=== PATIENT | female | born 1975 | race Caucasian/White ===

== ENCOUNTER 2021-03-10 11:50 | Emergency (ER) | payer OTHER, SELFPAY ==
[2021-03-10 12:03] VITALS: BP 154/87; PULSE 114; RESP 16; TEMP 36.2; O2SAT 100
--- NOTE | 2021-03-10 12:28 | ED.URI ---
HPI - URI/Sore Throat General Chief Complaint: Upper Respiratory Infection Stated Complaint: CHEST PAIN/SOB Source: patient and RN notes reviewed Limitations: no limitations History of Present Illness HPI Narrative: The unvaccinated patient, a non-smoker /occ drinker, presents with several issues. The patient came in, probably for today, with 1 morning history of right great toe pain that is mild, worse with motion, better with rest or elevation, associated with nausea. She struck her nail on furnishings, breaking / hyperextending it at the proximal third of the nailbed; she declines x-ray as it only affected her toenail. She also mentions she has had a 1 to 2-day worsening of several month history of cough, she felt triggered by working in a dirty or moldy basement. No fever, CP, vomiting/diarrhea, S OB, loss of taste/smell, wheezing/sneezing-but she has tightness and had an inhaler in the past for cough . Related Data Allergies Allergy/AdvReac Type Severity Reaction Status Date / Time No Known Allergies Allergy Verified 11/25/20 15:10 Review of Systems Review of Systems: The patient has been informed that they may have pre-hypertension or Hypertension based on a BP reading in the department. I recommend that the patient call the primary care provider listed on their discharge instructions or a physician of their choice this week to arrange follow up for further evaluation of possible pre-hypertension or Hypertension General/Constitutional: No weight loss,fever Eyes: N0: Redness,discharge Ears/Nose/Throat: No: Epistaxis,ear discharge Respiratory: Denies: Hemoptysis Gastrointestinal: No Vomiting, Bleeding-rectal Skin: No Lumps, eruption Neurologic: No Focal Weakness,Sz Hematologic: Denies: Petechiae/Purpura Psychiatric: No: Suicida ideationl All Other Systems: Reviewed and Negative [facility] Past Medical History Medical History Anxiety Hx of migraines Type 2 diabetes mellitus without complications Diet controlled. Surgical History Surgical History No history of previous surgery Family History Family History Father Hypertension Family history of elevated blood lipids Family history of diabetes mellitus in first degree relative Family history of coronary artery disease Grandparent Hypertension Family history of elevated blood lipids Diabetes mellitus Mother Hypertension Family history of elevated blood lipids Family history of diabetes mellitus in first degree relative Social History Social History Smoking status: Never smoker Alcohol intake: current Gender identity (if verbalized by the patient): Female Comments At time of signature, agree with nursing past medical, surgical, social and family history. There is no relevant family history pertinent to the presenting complaint Exam Narrative: General Appearance: Well appearing, Conjunctiva clear Ears: External ear normal, Auditory canal normal Nose: Normal nose, Nares clear, Mouth/Throat: Normal appearing, Normal lips, Supple Respiratory: Airway patent, No respiratory distress, CTA no wheeze MS- toe: Nl strength (mostly intact, limited flexion/extension by pain), Tenderness (great toenail, with mild decreased ROM), Swelling , Other (transverse fracture line prox. third of nail without significant subungal hematoma, no anterior drawer, no collateral laxity, ) Skin: Warm, Dry, Normal color Neurological: A&O x3, Speech clear, CN II-XII intact Psychiatric: Normal mood, Normal affect Course Vital Signs Vital signs: Vital Signs Temperature 97.2 F L 03/10/21 12:03 Pulse Rate 114 H 03/10/21 12:03 Respiratory Rate 16 03/10/21 12:03 Blood Pressure 154/87 H 03/10/21 12:03 Pulse Oximetry 100 03/10/21 12:03
== END 2021-03-10 12:42 | disposition home or self-care (01) ==
PROVIDERS: Emergency Provider Emergency Medicine; PCP Nurse Practitioner
DX: R05.9 Cough, unspecified (principal); S99.921A Unspecified injury of right foot, initial encounter; W22.03XA Walked into furniture, initial encounter; Z20.822 Contact with and (suspected) exposure to COVID-19; F41.9 Anxiety disorder, unspecified; E11.9 Type 2 diabetes mellitus without complications
CPT/HCPCS: 87426; 99213; C9803; G0463

== ENCOUNTER 2022-02-26 18:42 | Emergency (ER) | payer OTHER, SELFPAY ==
[2022-02-26 18:49] VITALS: BP 155/79; PULSE 88; RESP 15; TEMP 36.7; O2SAT 100
--- NOTE | 2022-02-26 19:39 | ED.HA ---
HPI - Headache General Chief Complaint: Headache Stated Complaint: migraines since Monday Time Seen by Provider: 02/26/22 19:14 Source: RN notes reviewed History of Present Illness HPI Narrative: Patient presents emergency room from home for headache. Patient states she has had a headache for the past 4 days. Patient patient states that the headache will come and go states that the pain is located behind her eyes and in the forehead patient states she does have history of migraines to use approximately 2-3 times a year states at home she tried taking Aleve as well as amitriptyline with minimal relief she states last thing she took for pain was yesterday when she took amitriptyline states she does have some mild nausea as well as mild photophobia she denies any fevers or chills neck pain vomiting diarrhea or any other symptoms Related Data Allergies Allergy/AdvReac Type Severity Reaction Status Date / Time No Known Allergies Allergy Verified 03/22/21 11:12 Review of Systems Review of Systems: Gen.: Denies fevers or chills Eyes: Denies eye pain or visual change reports photophobia ENT: Denies congestion Respiratory: Denies shortness of breath or cough CV: Denies chest pain or palpitations reports nausea GI: Denies abdominal pain emesis or diarrhea denies Musculoskeletal: Denies back pain or muscle pain Neuro: Denies numbness, tingling, weakness or focal weakness Skin: Denies rash Except as documented, all other systems reviewed and negative [facility] Past Medical History Medical History Anxiety Hx of migraines Type 2 diabetes mellitus without complications Diet controlled. Surgical History Surgical History No history of previous surgery Family History Family History Father Hypertension Family history of elevated blood lipids Family history of diabetes mellitus in first degree relative Family history of coronary artery disease Grandparent Hypertension Family history of elevated blood lipids Diabetes mellitus Mother Hypertension Family history of elevated blood lipids Family history of diabetes mellitus in first degree relative Social History Social History Smoking status: Never smoker Alcohol intake: current Alcohol use details: states just social drink/if out to eat Substance use: never Substance use type: does not use Additional living arrangements comments: daughter, boyfriend and grandchild 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 CARDIOVASCULAR: Regular rate and rhythm without murmurs rubs or gallops. ABDOMINAL: Soft, nontender, nondistended, no rebound or guarding MUSCULOSKELETAl: Moves all extremities. No clubbing, cyanosis or edema. NEURO: Awake and alert x 4 Following commands, speech normal, no focal deficits SKIN:: Warm, dry. No rashes lesions or abrasions PSYCHIATRIC: Normal affect/mood, Course Course Emergency Course: Patient states she is feeling better at this time states headache is greatly improved she states she does not leave as her daughter is a car she is requesting some p.o. Tylenol and then would like to be discharged discussed with patient results of workup and diagnosis. Discussed need for follow-up with primary care, proper use of medication, and reasons to return to the emergency department. Patient understands and agrees to current treatm
[2022-02-26] MEDS: SODIUM CHLORIDE 0.9% IV 1,000 ML 999 ML IV CONT (19:44)
[2022-02-26] MEDS: KETOROLAC 30 MG/ML VIAL (*BKC) IV PUSH (19:45)
[2022-02-26] MEDS: ONDANSETRON INJ 4 MG/2 ML VIAL IV PUSH (19:45)
[2022-02-26] MEDS: diphenhydrAMINE HCl INJ 50 MG/ML VIAL 25 MG IV PUSH (19:45)
[2022-02-26] MEDS: ACETAMINOPHEN 500 MG TABLET 1000 MG PO (21:35)
[2022-02-26 21:37] VITALS: BP 143/69; PULSE 78; RESP 19; O2SAT 99
== END 2022-02-26 22:01 | disposition home or self-care (01) ==
PROVIDERS: Emergency Provider Emergency Medicine; PCP Nurse Practitioner
DX: G43.909 Migraine, unspecified, not intractable, without status migrainosus (principal); E11.9 Type 2 diabetes mellitus without complications; Z79.84 Long term (current) use of oral hypoglycemic drugs
CPT/HCPCS: 96361; 96374; 96375; 99284; A9270; J1200; J1885; J2405; J7030

== ENCOUNTER 2022-02-28 19:55 | Emergency (ER) | payer OTHER, SELFPAY ==
[2022-02-28 20:40] VITALS: BP 175/73; PULSE 79; RESP 16; TEMP 36.2; O2SAT 100
--- NOTE | 2022-02-28 23:43 | ED.GENADULT ---
HPI - General Adult General Chief complaint: Headache Stated complaint: migraine Time Seen by Provider: 02/28/22 23:30 History of Present Illness HPI narrative: 47-year-old female history of intermittent headaches presenting to the emergency department for evaluation of a persistent headache. Patient states that her headache initially started on Monday. Patient states it started gradually and is similar in character and intensity to her previous headaches. Patient states that the headache did persist on Monday and did improve Monday but came back on Monday. Patient presented to the emergency room Monday and was evaluated in the emergency department. Patient was treated with medications and stated she felt improved. Patient states that the headache did return Monday and was present throughout the day today. Patient denies any falls or injuries. Patient denies any fevers. Patient states the headache is similar to previous but is just not responding to medications. Patient states that she has received the migraine cocktail previously and this has helped. Related Data Allergies Allergy/AdvReac Type Severity Reaction Status Date / Time No Known Allergies Allergy Verified 02/28/22 23:12 Review of Systems Review of Systems: CONSTITUTIONAL: Denies fever, chills, or sweats. EYES: Denies visual changes, redness, or discharge. ENT: Denies rhinorrhea, congestion, sore throat, or otalgia. CARDIOVASCULAR: Denies chest pain, palpitations, or edema. RESPIRATORY: Denies cough or dyspnea. GASTROINTESTINAL: Denies abdominal pain, nausea, vomiting, or diarrhea. GENITOURINARY: Denies dysuria or hematuria. SKIN: Denies rash or itching. MUSCULOSKELETAL: Denies back pain, joint pain, or myalgia. NEUROLOGIC: See HPI, denies any associated numbness or weakness. [facility] Past Medical History Medical History Anxiety Hx of migraines Type 2 diabetes mellitus without complications Diet controlled. Surgical History Surgical History No history of previous surgery Family History Family History Father Hypertension Family history of elevated blood lipids Family history of diabetes mellitus in first degree relative Family history of coronary artery disease Grandparent Hypertension Family history of elevated blood lipids Diabetes mellitus Mother Hypertension Family history of elevated blood lipids Family history of diabetes mellitus in first degree relative Social History Social History Smoking status: Never smoker Alcohol intake: current Alcohol use details: states just social drink/if out to eat Substance use: never Substance use type: does not use Additional living arrangements comments: daughter, boyfriend and grandchild 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 HEAD: normocephalic, atraumatic. EYES: PERRLA/EOMI, conjunctivae clear. NOSE: Normal no drainage NECK: Supple. No adenopathy, no masses. RESPIRATORY: Airway patent, respirations nonlabored. Clear to auscultation bilaterally, no rales, rhonchi, wheezing. CARDIOVASCULAR: Regular rate and rhythm without murmurs rubs or gallops. ABDOMINAL: Soft, nontender, nondistended, normal bowel sounds MUSCULOSKELETAL: Moves all extremities. Strength/ROM intact, No edema, No calf tenderness. NEURO: Alert. Cranial nerves II through XII intact. Normal comprehensive neuro exam, no ataxia, no discoordination, normal strength reflexes. Normal Romberg. Normal forward and backward tandem gait. SKIN: Warm, dry. Normal Color PSYCHIATRIC: Normal affect/mood. Course Course Emergency C
[2022-03-01] MEDS: SODIUM CHLORIDE 0.9% IV 1,000 ML 999 ML IV CONT (00:18)
[2022-03-01] MEDS: SODIUM CHLORIDE 0.9% IV 100 ML 500 ML (00:19)
[2022-03-01] MEDS: KETOROLAC 15 MG/ML VIAL (*BKC) IV PUSH (00:20)
[2022-03-01] MEDS: PROCHLORPERAZINE EDISYLATE 10 MG/2 ML VIAL IV PUSH (00:20)
[2022-03-01] MEDS: diphenhydrAMINE HCl INJ 50 MG/ML VIAL IV PUSH (00:21)
[2022-03-01 02:45] VITALS: BP 116/65; PULSE 67; RESP 16; O2SAT 100
== END 2022-03-01 02:46 | disposition home or self-care (01) ==
PROVIDERS: Emergency Provider Emergency Medicine; PCP Nurse Practitioner
DX: G43.909 Migraine, unspecified, not intractable, without status migrainosus (principal); E11.9 Type 2 diabetes mellitus without complications; Z79.84 Long term (current) use of oral hypoglycemic drugs
CPT/HCPCS: 96361; 96374; 96375; 99284; J0780; J1200; J1885; J7030

== ENCOUNTER 2022-03-14 08:23 | Emergency (ER) | payer OTHER, SELFPAY ==
[2022-03-14 08:40] VITALS: BP 123/77; PULSE 98; RESP 16; TEMP 37.7; O2SAT 100
--- NOTE | 2022-03-14 08:44 | ED.URI ---
HPI - URI/Sore Throat General Chief Complaint: Upper Respiratory Infection Stated Complaint: sorethroat,rt ear pain,vaginal discharge Time Seen by Provider: 03/14/22 08:50 Source: patient and RN notes reviewed Mode of arrival: ambulatory Limitations: no limitations History of Present Illness HPI Narrative: 47-year-old female presents with concern for sore throat, earache, slight nasal congestion that started today. She reports she was on [place] farm [place] and around dogs and thinks she could possibly have allergies, she is also concerned for strep throat. In a separate complaint she reports vaginal itching for 1 day she denies any [id number] remedies. She reports history of vaginal yeast infections with similar symptoms. She denies copious vaginal discharge, dysuria, frequency, urgency. MD elicited complaint: sore throat Related Data Allergies Allergy/AdvReac Type Severity Reaction Status Date / Time No Known Allergies Allergy Verified 02/28/22 23:12 Review of Systems Review of Systems: CONSTITUTIONAL: Denies malaise, chills, sweats, or fever. EYES: Denies visual changes, redness, or discharge. ENT: Reports rhinorrhea, congestion, sore throat. Denies sinus pain, otalgia CARDIOVASCULAR: Denies chest pain, palpitations, or edema. RESPIRATORY: Denies cough. Denies dyspnea. GASTROINTESTINAL: Denies abdominal pain, nausea, vomiting, diarrhea SKIN: Denies rash or itching. : Reports vaginal itching MUSCULOSKELETAL: Denies myalgia. NEUROLOGIC: Denies headache. All systems reviewed & are unremarkable except as noted in HPI and below [facility] Past Medical History Medical History Anxiety Hx of migraines Type 2 diabetes mellitus without complications Diet controlled. Surgical History Surgical History No history of previous surgery Family History Family History Father Hypertension Family history of elevated blood lipids Family history of diabetes mellitus in first degree relative Family history of coronary artery disease Grandparent Hypertension Family history of elevated blood lipids Diabetes mellitus Mother Hypertension Family history of elevated blood lipids Family history of diabetes mellitus in first degree relative Social History Social History Smoking status: Never smoker Alcohol intake: current Alcohol use details: states just social drink/if out to eat Substance use: never Substance use type: does not use Additional living arrangements comments: daughter, boyfriend and grandchild 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 There is no relevant family history pertinent to the presenting complaint Exam Narrative: GENERAL: Well-appearing, well-nourished, and in no acute distress. HEAD: Normocephalic EYES: PERRLA, conjunctivae clear ENT: Nares clear, clear discharge. Mucous membranes moist. TM pearly mcpherson with sharp light reflex bilaterally; no tragal tenderness. Oropharynx not erythematous without lesions. Tonsils not enlarged and without exudate, no drooling, no hoarseness, no trismus, uvula midline. NECK: Supple. No lymphadenopathy CHEST: Clear to auscultation, breath sounds equal. No wheezing, rhonchi, rales, or stridor. No respiratory distress, speaks in full sentences. HEART: Regular rate and rhythm. No murmur heard. SKIN: Warm, dry, no rash. NEURO: Alert and oriented x3. PSYCH: Normal mood and affect Course Course Emergency Course: Patient is aware of diagnosis, understands and agrees to treatment plan. Anticipatory guidance given. Patient agrees to follow-up as directed a
== END 2022-03-14 09:15 | disposition home or self-care (01) ==
PROVIDERS: Emergency Provider Nurse Practitioner; PCP Nurse Practitioner
DX: J30.9 Allergic rhinitis, unspecified (principal); N89.8 Other specified noninflammatory disorders of vagina; E11.9 Type 2 diabetes mellitus without complications
CPT/HCPCS: 87081; 87880; 99213; G0463

== ENCOUNTER 2022-04-11 15:20 | Emergency (ER) | payer OTHER, SELFPAY ==
--- NOTE | ~2022-04-11 | CT_ITS ---
EXAMINATION: CT abdomen pelvis w con DATE: 04/11/2022 17:59 INDICATION: Right lower quadrant abdominal pain, nausea for 2 days TECHNIQUE: Computed tomography (CT) of the abdomen and pelvis was performed with 100 CC Omnipaque 350 intravenous contrast. Automated exposure control and iterative reconstruction technique were employe d. Exam dose: 736.47 mGy-cm total exam DLP. COMPARISON: None. FINDINGS: The lung bases are clear of infiltrate or consolidation. Normal heart size. No pericardial or pleural effusion. Hepatic steatosis is suggested. The liver, gallbladder, spleen, pancreas and the bile ducts and pancr eatic duct are otherwise unremarkable. Normal morphology of the adrenal glands. No renal mass lesion or urinary tract calculus or hydroureteronephrosis. The urinary bladder is unrem arkable. There are bilateral ovarian cysts measuring up to 3.5 cm on the right and 2.2 cm on the left. Normal appendix. No bowel obstruction, bowel wall thickening, pneumatosis or intraperitoneal free air . There is atherosclerotic calcification of the abdominal aorta and iliac arteries but no abdominal aor tic aneurysm. No intraperitoneal or retroperitoneal or pelvic mass lesion or adenopathy or ascites. Included skeletal structures are unremarkable. IMPRESSION: Bilateral ovarian cystic lesions measuring up to 3.5 cm on the right and 2.2 cm on the l eft similar consider pelvic ultrasound for more definitive evaluation Normal appendix Probable hepatic steatosis Reviewed, dictated and finalized at [facility] Reviewed, dictated and finalized at [facility] IMPRESSION: Bilateral ovarian cystic lesions measuring up to 3.5 cm on the rig ht and 2.2 cm on the left similar consider pelvic ultrasound for more definitiv e evaluation Normal appendix Probable hepatic steatosis
[2022-04-11 15:31] VITALS: BP 121/88; PULSE 80; RESP 18; TEMP 36.9; O2SAT 100
[2022-04-11 15:45] LABS: Basophils Percent Auto 0.6 % (0.2-1.2); Eosinophils Absolute Auto 0.1 K/mm3 (0-0.3); Eosinophils Percent Auto 1.4 % (0-4.4); Hematocrit 40.5 % (37.0-47.0); Hemoglobin 13.8 g/dL (12.0-15.0); Immature Granulocyte Absolute 0.02 K/mm3 (0.00-0.031); Immature Granulocyte Percent A 0.4 % (0-0.5); Lymphocytes Absolute Auto 1.75 K/mm3 (0.9-3.2); Lymphocytes Percent Auto 36.2 % (18.3-44.2); Mean Corpuscular HGB Conc 34.1 g/dl (32-36); Mean Corpuscular Hemoglobin 29.2 pg (26-34); Mean Corpuscular Volume 85.8 fl (80-100); Mean Platelet Volume 11.1 fl (7.4-10.4); Monocytes Absolute Auto 0.4 K/mm3 (0.1-0.6); Monocytes Percent Auto 7.2 % (2.6-8.5); Neutrophils Absolute Auto 2.6 K/mm3 (1.3-6.7); Neutrophils Percent Auto 54.2 % (45.5-73.1); Platelet Count Result 186 k/mm3 (150-375); Red Blood Count 4.72 M/mm3 (4.2-5.4); Red Cell Distribution Width 13.1 % (11.5-14.5); White Blood Count 4.8 K/mm3 (4.5-10.0)
[2022-04-11 16:10] LABS: Appearance Urine Clear (Clear); Bilirubin Urine Negative (Negative); Blood Urine Negative (Negative); Color Urine Yellow (Yellow); Glucose Urine UA 3+ mg/dL (Negative); Ketones Urine 1+ mg/dL (Negative); Leukocyte Esterase Ur Negative LEU/UL (Negative); Nitrate Urine Negative (Negative); Protein Urine Negative (Negative); Urobilinogen Urine 0.2 mg/dL (<2.0)
[2022-04-11 16:10] LABS: Alanine Aminotransferase 34 U/L (6-35); Albumin Level 4.1 g/dL (3.5-5.1); Alkaline Phosphatase 95 U/L (38-126); Anion Gap 9 mmol/L (8-16); Aspartate Amino Transferase 32 U/L (14-36); Bilirubin,Total 0.9 mg/dL (0.2-1.3); Blood Urea Nitrogen 10 mg/dL (7-17); Calcium 8.7 mg/dL (8.4-10.2); Carbon Dioxide 24 mmol/L (22-30); Chloride 103 mmol/L (98-107); Estimated CRCL calculation 97 ml/min; Estimated Glomerular Filt Rate > 60; Glucose 328 mg/dL (65-110); Lipase 89 U/L (23-300); Potassium 4.4 mmol/L (3.4-5.0); Sodium 136 mmol/L (137-145)
[2022-04-11 16:16] LABS: Bacteria Urine Trace /hpf; RBC Urine 0-2 /hpf (0-2); Squamous Epithelial Cell Urine Rare /hpf (Few); WBC Urine 0-3 /hpf
[2022-04-11 16:20] LABS: Add Urine Microscopic? YES
--- NOTE | 2022-04-11 17:35 | ED.ABDPAIN ---
HPI - Abdominal Pain General Chief Complaint: Abdominal Pain Stated Complaint: abd pain Time Seen by Provider: 04/11/22 17:24 Source: patient Mode of arrival: ambulatory History of Present Illness HPI narrative: 47-year-old female with history of type 2 diabetes noncompliant with medications for 2 years presents today with right lower abdominal pain that started 2 days ago. Patient states the pain is constant but wavers in intensity. Patient states certain movements and palpation increases the pain. Patient does state that she did with the crib on Monday and she is not sure that patient denies fever, body aches, chills may be caused the issue., Dysuria, hematuria. Patient does endorse some nausea. Pain currently tolerable. Related Data Allergies Allergy/AdvReac Type Severity Reaction Status Date / Time No Known Allergies Allergy Verified 02/28/22 23:12 Review of Systems Review of Systems: CONSTITUTIONAL: Denies fever, chills, or sweats. EYES: Denies visual changes, redness, or discharge. ENT: Denies rhinorrhea, congestion, sore throat, or otalgia. CARDIOVASCULAR: Denies chest pain, palpitations, or edema. RESPIRATORY: Denies cough or dyspnea. GASTROINTESTINAL: Endorses right lower abdominal pain and nausea but denies vomiting, or diarrhea. GENITOURINARY: Denies dysuria or hematuria. SKIN: Denies rash or itching. MUSCULOSKELETAL: Denies back pain, joint pain, or myalgia. NEUROLOGIC: Denies headache, numbness, dizziness, or weakness. PSYCHIATRIC: Denies anxiety or depression. [facility] Past Medical History Medical History Anxiety Hx of migraines Type 2 diabetes mellitus without complications Diet controlled. Surgical History Surgical History No history of previous surgery Family History Family History Father Hypertension Family history of elevated blood lipids Family history of diabetes mellitus in first degree relative Family history of coronary artery disease Grandparent Hypertension Family history of elevated blood lipids Diabetes mellitus Mother Hypertension Family history of elevated blood lipids Family history of diabetes mellitus in first degree relative Social History Social History Smoking status: Never smoker Alcohol intake: current Alcohol use details: states just social drink/if out to eat Substance use: never Substance use type: does not use Additional living arrangements comments: daughter, boyfriend and grandchild 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 HEAD: Normocephalic, atraumatic. EYES: PERRLA and EOMI. CHEST: Clear to auscultation. No respiratory distress. No wheezes rales or rhonchi HEART: Regular rate and rhythm. No murmur heard. Normal peripheral pulses. ABDOMEN: Soft, RLQ tenderness without guarding, nondistended, normal active bowel sounds. EXTREMITIES: Normal range of motion. No edema. PSYCH: Normal mood and affect. Course Reevaluation(s) Reevaluation #1: Patient was improvement after Toradol. Reviewed CT with patient. Discussed follow-up with OB. Patient also needs to follow-up with primary and long discussion had of complications of diabetes. Patient is aware and will follow-up. Vital Signs Vital signs: Vital Signs Temperature 98.5 F 04/11/22 15:31 Pulse Rate 80 04/11/22 15:31 Respiratory Rate 18 04/11/22 15:31 Blood Pressure 121/88 04/11/22 15:31 Pulse Oximetry 100 04/11/22 15:31 Oxygen Delivery Room Air 04/11/22 15:31 Temperature 98.5 F 04/11/22 15:31 Pulse Rate 80 04/11/22 15:31 Respiratory Rate 18 04/11/22 15:31 Blood
[2022-04-11] MEDS: SODIUM CHLORIDE 0.9% IV 1,000 ML 999 ML IV CONT (17:44)
[2022-04-11] MEDS: ONDANSETRON INJ 4 MG/2 ML VIAL IV PUSH (17:44)
[2022-04-11] MEDS: KETOROLAC 30 MG/ML VIAL (*BKC) IV PUSH (18:35)
== END 2022-04-11 19:54 | disposition home or self-care (01) ==
PROVIDERS: Emergency Medicine; Emergency Provider Nurse Practitioner Family; PCP Nurse Practitioner
DX: N83.202 Unspecified ovarian cyst, left side (principal); N83.201 Unspecified ovarian cyst, right side; E11.65 Type 2 diabetes mellitus with hyperglycemia; T38.3X6A Underdosing of insulin and oral hypoglycemic [antidiabetic] drugs, initial encounter; Z91.128 Patient's intentional underdosing of medication regimen for other reason; R93.2 Abnormal findings on diagnostic imaging of liver and biliary tract
CPT/HCPCS: 36415; 74177; 80053; 81001; 81025; 83690; 85025; 96361; 96374; 96375; 99284; J1885; J2405; J7030; Q9967

== ENCOUNTER 2022-07-14 13:59 | Emergency (ER) | payer OTHER, SELFPAY ==
--- NOTE | 2022-07-14 14:01 | ED.URI ---
HPI - URI/Sore Throat General Chief Complaint: Upper Respiratory Infection Stated Complaint: EAR/THROAT/RUNNY NOSE/COUGH Time Seen by Provider: 07/14/22 14:01 Source: patient and RN notes reviewed History of Present Illness HPI Narrative: Patient is a 47-year-old female who presents to urgent care with complaints of bilateral ear pain, sore throat, runny nose cough. Patient states it started on Monday evening after her daughter was already feeling bad. Patient states her symptoms are worse today. Denies any ill exposures. Denies any fever, nausea or vomiting. Patient is not tested herself at home for COVID. No other acute complaints. No acute distress noted. Patient aware of the plan of care. Some parts of this dictation were generated by voice recognition software and may contain typographical and/or grammatical inaccuracies. Related Data Home Medications Medication Instructions Recorded Confirmed No Home Medications 07/14/22 07/14/22 Allergies Allergy/AdvReac Type Severity Reaction Status Date / Time No Known Allergies Allergy Verified 07/14/22 14:34 Review of Systems Review of Systems: CONSTITUTIONAL: Denies fever, chills, or sweats. EYES: Denies visual changes, redness, or discharge. ENT: Reports of sore throat, congestion, runny nose and bilateral otalgia CARDIOVASCULAR: Denies chest pain, palpitations, or edema. RESPIRATORY: Reports of cough without dyspnea GASTROINTESTINAL: Denies abdominal pain, nausea, vomiting, or diarrhea. GENITOURINARY: Denies dysuria or hematuria. SKIN: Denies rash or itching. MUSCULOSKELETAL: Denies back pain, joint pain, or myalgia. NEUROLOGIC: Denies headache, numbness, or weakness. All other systems reviewed are negative, except as documented in HPI. [facility] Past Medical History Medical History Anxiety Hx of migraines Type 2 diabetes mellitus without complications Diet controlled. Surgical History Surgical History No history of previous surgery Family History Family History Father Hypertension Family history of elevated blood lipids Family history of diabetes mellitus in first degree relative Family history of coronary artery disease Grandparent Hypertension Family history of elevated blood lipids Diabetes mellitus Mother Hypertension Family history of elevated blood lipids Family history of diabetes mellitus in first degree relative Social History Social History Smoking status: Never smoker Alcohol intake: current Alcohol use details: states just social drink/if out to eat Substance use: never Substance use type: does not use Living arrangements: with family Additional living arrangements comments: daughter, boyfriend and grandchild 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 There is no relevant family history pertinent to the patient complaint. Exam Narrative: GENERAL: This is a well-nourished, well-developed patient, in no apparent distress. HEAD: normocephalic, atraumatic. EYES: PERRL. Sclera clear/white. Vision is grossly intact. EARS: External ears normal, auditory canals clear and without drainage, mild right eustachian tube dysfunction without otitis. TMs normal without perforation. Hearing grossly intact. NOSE: External nose normal with no obvious nasal discharge, nares without redness, no rhinorrhea. THROAT: Mucous membranes moist, mild erythema to posterior oropharynx with mild postnasal drainage NECK: Neck supple, non-tender without lymphadenopathy CARDIOVASCULAR: Regular rate and rhythm without mur
[2022-07-14 14:15] VITALS: BP 146/88; PULSE 94; RESP 16; TEMP 36.9; O2SAT 100
== END 2022-07-14 14:40 | disposition home or self-care (01) ==
PROVIDERS: Emergency Provider Nurse Practitioner Family; PCP Nurse Practitioner
DX: J02.9 Acute pharyngitis, unspecified (principal); J06.9 Acute upper respiratory infection, unspecified; E11.9 Type 2 diabetes mellitus without complications
CPT/HCPCS: 87081; 87880; 99213; G0463

== ENCOUNTER 2022-07-26 16:31 | Inpatient (IN) | payer OTHER, SELFPAY ==
[2022-07-26] VITALS (15 sets, daily range): BP systolic 122–154; BP diastolic 59–98; PULSE 89–111; RESP 14–30; TEMP 36.4–37.3; O2SAT 99–100; BMI 32.3
--- NOTE | ~2022-07-26 | XR_ITS ---
EXAMINATION: XR chest 2V DATE: 07/29/2022 12:55 INDICATION: Chest pain with deep breath. TECHNIQUE: Frontal and lateral views of the chest were obtained. COMPARISON: Chest CT 07/26/2022 FINDINGS: There is no pneumonia, pleural effusion, or pneumothorax. The heart size is normal. IMPRESSION: 1. No acute cardiopulmonary disease. Reviewed, dictated and finalized at location A. [employer]INTING
--- NOTE | ~2022-07-26 | CT_ITS ---
EXAMINATION: CTA chest PE protocol DATE: 07/26/2022 18:07 INDICATION: CP, SOB, elev trop, tachycardia, r/o PE TECHNIQUE: Computed tomography angiography (CTA) of the chest was performed with 100 mL Omnipaque-350 intravenous contrast timed to evaluate the pulmonary arteries. Coronal maximum intensity projection 3D-reconstructions were created by the technologist. The dose-length product (DLP) was 265.24 mGy-cm. Automated exposure control and iterative reconstruction technique were employed. COMPARISON: 04/11/2022 CT abdomen and pelvis. FINDINGS: Lung parenchyma and airways: Two sub-6 mm pulmonary nodules. Lungs otherwise clear. Pleura: Unremarkable. Thoracic inlet, axillae and chest wall: 11 mm thyroid nodule, requiring no additional evaluation. Thoracic aorta: Normal. Mediastinum: Normal. Heart and pericardium: Normal. Coronary artery calcifications: Mild. Upper abdomen: No significant finding. Bones: No acute osseous finding. Pulmonary arteries: Study quality: Adequate. No pulmonary emboli detected. IMPRESSION: No CT evidence of acute pulmonary embolus. Multiple sub-6 mm solid pulmonary nodules, likely benign a nd requiring no routine follow-up, unless the patient is at high risk in which case consider optional noncontrasted chest CT at 12 months. Reviewed, dictated and finalized at location K. ROAD OPERATING ENGINEER IMPRESSION: No CT evidence of acute pulmonary embolus. Multiple sub-6 mm solid pulmonary no dules, likely benign and requiring no routine follow-up, unless the patient is at high risk in which case consider optional noncontrasted chest CT at 12 month s.
--- NOTE | 2022-07-26 16:40 | ECG_ITS ---
Measurements Intervals [place] Rate: 100 P: 42 [place]: 131 QRS: -45 QRSD: 110 T: 39 QT: 344 QTc: 444 Interpretive Statements SINUS TACHYCARDIA LEFT ANTERIOR FASCICULAR BLOCK ABNORMAL ECG NO PREVIOUS ECG AVAILABLE FOR COMPARISON Electronically Signed On 07-27-2022 6:21:06 SPORTS CENTRE MANAGER by Cj Small D.O.
[2022-07-26 16:51] LABS: Basophils Percent Auto 0.4 % (0.2-1.2); Eosinophils Percent Auto 0.4 % (0-4.4); Hematocrit 44.8 % (37.0-47.0); Hemoglobin 15.1 g/dL (12.0-15.0); Immature Granulocyte Absolute 0.03 K/mm3 (0.00-0.031); Immature Granulocyte Percent A 0.3 % (0-0.5); Lymphocytes Absolute Auto 1.68 K/mm3 (0.9-3.2); Lymphocytes Percent Auto 18.1 % (18.3-44.2); Mean Corpuscular HGB Conc 33.7 g/dl (32-36); Mean Corpuscular Hemoglobin 28.6 pg (26-34); Mean Corpuscular Volume 84.8 fl (80-100); Mean Platelet Volume 10.8 fl (7.4-10.4); Monocytes Absolute Auto 0.5 K/mm3 (0.1-0.6); Monocytes Percent Auto 4.9 % (2.6-8.5); Neutrophils Absolute Auto 7.1 K/mm3 (1.3-6.7); Neutrophils Percent Auto 75.9 % (45.5-73.1); Platelet Count Result 230 k/mm3 (150-375); Red Blood Count 5.28 M/mm3 (4.2-5.4); Red Cell Distribution Width 13.3 % (11.5-14.5); White Blood Count 9.3 K/mm3 (4.5-10.0)
[2022-07-26 17:01] LABS: Alanine Aminotransferase 32 U/L (6-35); Albumin Level 4.6 g/dL (3.5-5.1); Alkaline Phosphatase 100 U/L (38-126); Anion Gap 9 mmol/L (8-16); Aspartate Amino Transferase 31 U/L (14-36); Blood Urea Nitrogen 11 mg/dL (7-17); Calcium 9.1 mg/dL (8.4-10.2); Carbon Dioxide 26 mmol/L (22-30); Chloride 102 mmol/L (98-107); Estimated CRCL calculation 140 ml/min; Estimated Glomerular Filt Rate > 60; Glucose 365 mg/dL (65-110); Lipase 123 U/L (23-300); Potassium 4.6 mmol/L (3.4-5.0); Prothrombin Time 12.5 Seconds (11.1-14.7); Sodium 137 mmol/L (137-145)
[2022-07-26 17:02] LABS: Partial Thromboplastin Time 25.3 SECONDS (22.3-36.8)
[2022-07-26 17:19] LABS: Troponin I 0.455 ng/mL (0.000-0.034)
--- NOTE | 2022-07-26 17:21 | ECG_ITS ---
Measurements Intervals [place] Rate: 100 P: 35 [place]: 136 QRS: -1 QRSD: 89 T: 44 QT: 330 QTc: 426 Interpretive Statements SINUS TACHYCARDIA LEFT AXIS DEVIATION BASELINE ARTIFACT- I, II, AVR, AVL, AVF BORDERLINE ECG COMPARED TO ECG 07/26/2022 16:35:48 NO SIGNIFICANT CHANGES Electronically Signed On 07-27-2022 6:30:06 CRANE ASSEMBLER by Cj Small D.O.
--- NOTE | 2022-07-26 17:57 | ED.CHESTPAIN ---
HPI - Chest Pain General Chief Complaint: Chest Pain <JORGE Go Last Filed: 07/26/22 23:52> Stated Complaint: chest pressure to neck/sob/nausea <JORGE Go Last Filed: 07/26/22 23:52> Time Seen by Provider: 07/26/22 17:31 <JORGE Go Last Filed: 07/26/22 23:52> Source: patient <JORGE Go Last Filed: 07/26/22 23:52> Mode of arrival: ambulatory <JORGE Go Last Filed: 07/26/22 23:52> Limitations: no limitations <JORGE Go Last Filed: 07/26/22 23:52> History of Present Illness HPI narrative: Patient is a 47-year-old female who presents to the ED with report of chest pain. Patient reports the pain began around 1:30 PM this afternoon during a stressful work meeting. She left work and rested at home, but pain has been constant since then. Pain is midsternal, described as a burning/pressure/squeezing pain. Radiates up to her neck and through to back. No alleviating factors. She has not tried anything for pain. Pain worse with deep breathing. She denies significant aggravation of pain with exertion. Patient also reports feeling mildly short of breath and nauseous with the pain. She has never had pain like this before. No history of cardiac disease. No history of hypertension or hyperlipidemia. She does have history of diabetes, but is not currently on any medication for this. No family history of heart disease that she is aware of. No smoking history. Patient does report recent travel, approximately 4 hours away. She did have mild upper respiratory symptoms after her trip, including a cough, but states the symptoms have since resolved. Denies recent lower extremity pain or swelling, abdominal pain, fevers, vomiting. <JORGE Go Last Filed: 07/26/22 23:52> Related Data Home Medications: Home Medications Medication Instructions Recorded Confirmed No Home Medications 07/14/22 07/26/22 <Hilary Nassar PA-C - Last Filed: 07/26/22 23:52> Allergies/Adverse Reactions: Allergies Allergy/AdvReac Type Severity Reaction Status Date / Time No Known Allergies Allergy Verified 07/26/22 16:44 <Hilary Nassar PA-C - Last Filed: 07/26/22 23:52> Review of Systems Review of Systems: CONSTITUTIONAL: Denies fever, chills, or sweats. ENT: See HPI. CARDIOVASCULAR: See HPI. RESPIRATORY: See HPI. GASTROINTESTINAL: See HPI. GENITOURINARY: Denies dysuria or hematuria. SKIN: Denies rash or itching. <Hilary Nassar PA-C - Last Filed: 07/26/22 23:52> All systems reviewed & are unremarkable except as noted in HPI and below <Hilary Nassar PA-C - Last Filed: 07/26/22 23:52> PMFSH Past Medical History Medical History: Medical History Anxiety Diet-controlled diabetes mellitus History of migraine <Hilary Nassar PA-C - Last Filed: 07/26/22 23:52> Surgical History Surgical History: Surgical History Status post excision of lipoma <Hilary Nassar PA-C - Last Filed: 07/26/22 23:52> Family History Family History: Family History Father Hypertension Family history of elevated blood lipids Family history of diabetes mellitus in first degree relative Family history of coronary artery disease Grandparent Hypertension Family history of elevated blood lipids Diabetes mellitus Mother Hypertension Family history of elevated blood lipids Family history of diabetes mellitus in first degree relative <Hilary Nassar PA-C - Last Filed: 07/26/22 23:52> Social History Social History: Social History Social History: Surrogate medical decision maker: Kaylen Isidro, mother. Code status: Nir
[2022-07-26] MEDS: ASPIRIN 81 MG CHEWABLE TABLET 324 MG PO (18:20)
[2022-07-26] MEDS: NITROGLYCERIN SL 0.4 MG TABLET SUBLINGUAL (18:45)
[2022-07-26] MEDS: SODIUM CHLORIDE 0.9% IV 1,000 ML 999 ML IV CONT (19:31)
[2022-07-26 20:35] LABS: Troponin I 0.737 ng/mL (0.000-0.034)
--- NOTE | 2022-07-26 20:45 | PM.IMHP ---
H&P: HPI History of Present Illness Date/Time: 07/26/22 20:45 Chief Complaint: Chest pain. Narrative: This is a very pleasant 47-year-old female with diet-controlled diabetes who presented to the emergency department from home for evaluation of chest pain. Patient provides the following history. She was in her usual state of health when she got up this morning and she went to work as per usual. At about 13:30 she attended a work meeting which was very stressful and during that meeting she developed sudden onset of a severe squeezing/pressure-like pain in the mid chest which radiated into the neck and through to the back. She was also feeling lightheaded, anxious, nauseated, and short of breath with the chest pain. She left work after the meeting to rest and when her symptoms continued she came in for evaluation. She was given aspirin and nitroglycerin in the emergency department and the nitro seemed to help, taking her pain from 0910 to 10. She is not having any significant symptoms at this time. She has never had similar symptoms. She denies syncope, near syncope, pleuritic pain, palpitations, sensations of racing heart, and lower extremity edema. She does mention having an upper respiratory infection several weeks ago but that has since resolved. Her vital signs were stable on arrival to the emergency department. Initial troponin was 0.455 and her EKG showed a sinus tachycardia with rate of [address] segment changes. Chest x-ray was unremarkable. She was sent for a CTA of the chest as she apparently had recent travel not was negative for pulmonary embolism though did show small pulmonary nodules which are likely benign. ED provider discussed the case with on-call rn procedures Dr. Faulkner and she was started on a heparin drip and will be NPO after midnight for possible cardiac catheterization tomorrow. Review of Systems Review of Systems: Twelve systems were reviewed and are negative except for as per HPI. [facility] Past Medical History Medical History Anxiety Diet-controlled diabetes mellitus History of migraine Surgical History Surgical History Status post excision of lipoma Family History Family History Father Hypertension Family history of elevated blood lipids Family history of diabetes mellitus in first degree relative Family history of coronary artery disease Grandparent Hypertension Family history of elevated blood lipids Diabetes mellitus Mother Hypertension Family history of elevated blood lipids Family history of diabetes mellitus in first degree relative Social History Social History (Updated 07/26/22 @ 23:52 by Missy Pena PA-C) Social History: Surrogate medical decision maker: Kaylen Isidro, mother. Code status: Full code. Smoking status: Never smoker Alcohol intake: current Alcohol use details: Social alcohol use in moderation. Substance use: never Substance use type: does not use Lack of Transportation: No Lack of Food: Never True Current Housing: I Have Housing Concerned About Future Housing: No Difficulty Paying Gas/Electric Bills: No Difficulty Paying for Meds: No Currently Unemployed: No Education: Associate Degree Difficulty w/ Childcare or Family Care: No Living arrangements: with family Additional living arrangements comments: Lives in [place] with son, daughter, and granddaughter. 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 Spiritual care concerns: No Meds Home Medications and Allergies Home Medications Medication Instructions Recorded Confirmed Type No Home Medications 07/14/22 07/26/22 History Allergies Allergy/AdvReac Type Severity Reaction Status Date / Time No Known Allergies Allergy Verified 07/26/22 16:44
--- NOTE | 2022-07-26 21:02 | ADMGEN ---
This patient, Lori Horvath, was admitted to IMU Room 206-02. Patient/family oriented to hospital policies and general routines including ID bracelet, bed and alarms, visiting hours, pain management, procedures, bathroom and other care routines, personal items, smoking policy, room service/diet, and visiting hours. Information on how to activate the Rapid Response Team has been discussed. Patient/Family are encouraged to report perceived risks to care and to ask questions if they do not understand what they are told or what they should do.
[2022-07-26] MEDS: HEPARIN SODIUM 5,000 UNITS/ML VIAL 4000 UNITS IV PUSH (21:17)
[2022-07-26] MEDS: HEPARIN SOD/D5W 100 UNITS/ML 25,000 UNITS/250 ML BAG 8 UNITS IV CONT (21:19)
[2022-07-26 21:42] LABS: Troponin I 0.763 ng/mL (0.000-0.034)
[2022-07-27] VITALS (30 sets, daily range): BP systolic 93–126; BP diastolic 50–78; PULSE 76–110; RESP 15–30; TEMP 36.2–37.1; O2SAT 95–100
--- NOTE | 2022-07-27 | ECG_ITS ---
Measurements Intervals [place] Rate: 81 P: 21 [place]: 136 QRS: 68 QRSD: 98 T: 2 QT: 383 QTc: 445 Interpretive Statements SINUS RHYTHM DELAYED PRECORDIAL R/S TRANSITION BORDERLINE ST-T WAVE ABNORMALITY- INFERIOR LEADS BORDERLINE ECG COMPARED TO ECG 07/26/2022 17:26:31 SINUS RHYTHM NOW PRESENT Electronically Signed On 07-27-2022 6:42:30 AUTOMOBILE SERVICE STATION MECHANIC by Cj Small D.O.
[2022-07-27] MEDS: NITROGLYCERIN SL 0.4 MG TABLET SUBLINGUAL ×3 (00:08→13:32)
[2022-07-27] MEDS: MORPHINE SULFATE (*CRX) 2 MG/ML INJ 1 MG IV PUSH (00:51)
--- NOTE | 2022-07-27 01:00 | PC.NURSE ---
This patient, Lori Horvath, was received from [facility] on 07/27/22 at 0058. Patient/family oriented to unit policies and routines.
[2022-07-27] MEDS: NITROGLYCERIN/D5W 200 MCG/ML 50 MG/250 ML BTL 6 MG IV CONT (01:08)
[2022-07-27] MEDS: NITROGLYCERIN/D5W 200 MCG/ML 50 MG/250 ML BTL IV CONT ×2 (01:16→13:32)
[2022-07-27 03:30] LABS: Basophils Percent Auto 0.6 % (0.2-1.2); Eosinophils Absolute Auto 0.1 K/mm3 (0-0.3); Eosinophils Percent Auto 1.2 % (0-4.4); Hematocrit 38.4 % (37.0-47.0); Hemoglobin 13.2 g/dL (12.0-15.0); Immature Granulocyte Absolute 0.01 K/mm3 (0.00-0.031); Immature Granulocyte Percent A 0.1 % (0-0.5); Lymphocytes Absolute Auto 2.93 K/mm3 (0.9-3.2); Lymphocytes Percent Auto 43.6 % (18.3-44.2); Mean Corpuscular HGB Conc 34.4 g/dl (32-36); Mean Corpuscular Hemoglobin 29.1 pg (26-34); Mean Corpuscular Volume 84.6 fl (80-100); Mean Platelet Volume 11.7 fl (7.4-10.4); Monocytes Absolute Auto 0.5 K/mm3 (0.1-0.6); Monocytes Percent Auto 6.8 % (2.6-8.5); Neutrophils Absolute Auto 3.2 K/mm3 (1.3-6.7); Neutrophils Percent Auto 47.7 % (45.5-73.1); Platelet Count Result 199 k/mm3 (150-375); Red Blood Count 4.54 M/mm3 (4.2-5.4); Red Cell Distribution Width 13.2 % (11.5-14.5); White Blood Count 6.7 K/mm3 (4.5-10.0)
[2022-07-27 03:40] LABS: Alanine Aminotransferase 24 U/L (6-35); Albumin Level 3.6 g/dL (3.5-5.1); Alkaline Phosphatase 76 U/L (38-126); Anion Gap 2 mmol/L (8-16); Aspartate Amino Transferase 25 U/L (14-36); Bilirubin,Total 0.8 mg/dL (0.2-1.3); Blood Urea Nitrogen 9 mg/dL (7-17); Calcium 8.6 mg/dL (8.4-10.2); Carbon Dioxide 25 mmol/L (22-30); Chloride 103 mmol/L (98-107); Cholesterol 292 mg/dL (0-200); Estimated CRCL calculation 138 ml/min; Estimated Glomerular Filt Rate > 60; Glucose 329 mg/dL (65-110); HDL Direct 28 mg/dL; Hemoglobin A1C 10.5 % (<5.7); Magnesium 1.7 mg/dL (1.6-2.3); Potassium 3.7 mmol/L (3.4-5.0); Sodium 130 mmol/L (137-145); Triglycerides 497 mg/dL (<150)
[2022-07-27 03:41] LABS: Partial Thromboplastin Time 32.4 SECONDS (22.3-36.8)
[2022-07-27 03:51] LABS: LDL Cholesterol Direct 150 mg/dL
[2022-07-27] MEDS: HEPARIN SODIUM 5,000 UNITS/ML VIAL 4000 UNITS IV PUSH (03:57)
--- NOTE | 2022-07-27 07:14 | PC.NURSE ---
[facility] flyer was given to patient.
[2022-07-27 07:47] LABS: Glucose Point of Care 285 mg/dl (65-105)
--- NOTE | 2022-07-27 08:00 | ECHO_ITS ---
Patient Info Name: Lori Horvath Age: 47 years : 1975 Gender: Female Ht: 62 in Wt: 176 lbs BSA: 1.90 m2 HR: 79 bpm BP: 101 / 67 mmHg Heart Rhythm: Sinus Rhythm Technical Quality: Fair Exam Date: 07/27/2022 7:49 AM Exam Location: [facility] Patient Status: Outpatient Admit Date: 07/26/2022 Staff Ordering Physician: Missy Pena PA-C Administrative Support Associate: Michela Hurt RDCS Attending Provider: Real Peterson MD Referring Physician: Jean RECIO; Exam Type: CA echo dop color flow w con Study Info Indications - NSTEMI Complete two-dimensional, color flow and Doppler transthoracic echocardiogram is performed with contrast to opacify the left ventricle and to improve the deliniation of the left ventricle endocardial borders. Contrast/Agitated Saline Contrast/Ag. Saline: Definity Amount: 3.00 ml Administered By: Michela Hurt RDCS Existing IV Access: Yes IV Access Condition: patent with no signs of infiltration Summary 1. Left ventricular chamber dimension is normal. 2. Left ventricular systolic function is normal, estimated at 50-55%. 3. There is hypokinesis of the mid anterolateral wall, mid anterior wall, and anteroseptal wall. 4. The left ventricular diastolic function is grade I diastolic dysfunction. 5. Right ventricular systolic function is normal. 6. No significant valvular disease. Left Ventricle There is hypokinesis of the mid anterolateral wall, mid anterior wall, and anteroseptal wall. Left ventricular chamber dimension is normal. Left ventricular systolic function is normal, estimated at 50-55%. There is no increased left ventricular wall thickness. The left ventricular diastolic function is grade I diastolic dysfunction. Right Ventricle Right ventricular chamber dimension is normal. Right ventricular systolic function is normal. Left Atria Left atrial chamber dimension is normal. Right Atria Right atrial chamber dimension is normal. Atrial Septum Intact interatrial septum visualized by color flow imaging. Aortic Valve The aortic valve is trileaflet. There is no aortic valve stenosis. There is no aortic valve regurgitation. Pulmonic Valve The pulmonic valve is not well visualized. Mitral Valve The mitral valve has normal leaflets. There is no mitral valve stenosis. There is trace mitral valve regurgitation. Tricuspid Valve There is trace tricuspid valve regurgitation. Pericardium/Pleural There is no pericardial effusion. Inferior Vena Cava Normal inferior vena cava with >50% collapse upon inspiration consistent with normal right atrial pressure, 3 mmHg. Aorta The aortic root size at the sinus of Valsalva is normal. Left Ventricular Outflow Tract Name Value Normal LVOT 2D LVOT Diameter 1.99 cm LVOT Doppler LVOT Peak Gradient 5 mmHg LVOT Mean Gradient 3 mmHg LVOT VTI 21.73 cm LVOT VTI/AV VTI Ratio 0.86 LVOT Stroke Volume 67.70 ml
[2022-07-27] MEDS: PERFLUTREN LIPID MICROSPHERES 1.5 ML VIAL DILUTED TO 10 ML TOTAL VOLUME IV PUSH (08:45)
--- NOTE | 2022-07-27 08:45 | IVDEFINITY ---
Prior to administration of IV Definity the patient was educated on the risks and benefits of the imaging enhancing agent including potential adverse side effects. The patient verbalized understanding. Allergies were verified. No exclusion criteria were identified and at least one of the following inclusion criteria were met: 1) physician request, 2) patient technically difficult to image (per the [place] [employer] Echocardi[employer] guidelines of two or more segments not discernable within the apical view), or 3) questionable left ventricular function. ?
[2022-07-27] MEDS: INSULIN ASPART (*BKC) 100 UNITS/ML SUB-Q ×4 (09:58→20:01)
[2022-07-27] MEDS: ASPIRIN 81 MG ENTERIC TABLET PO (09:59)
[2022-07-27] MEDS: ATORVASTATIN 40 MG TABLET 80 MG PO (09:59)
--- NOTE | 2022-07-27 10:16 | PM.CNCAR ---
Assessment and Plan Assessment and plan (1) Non-ST elevation myocardial infarction (NSTEMI): Code(s): I21.4 - Non-ST elevation (NSTEMI) myocardial infarction Status: Acute Assessment and Plan: TTE shows overall preserved LVEF with regional wall motion abnormalities. No significant valvular disease. Will plan for cardiac cath today. Discussed procedure details, risks vs benefits, etc. with the patient. Patient agrees. Patient to remain NPO for cardiac cath. Continue ASA and high-intensity statin, along with Heparin drip for now. Will start beta brandon. 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 A1c is 10.5. Management as per Hospitalist. (3) Hyperlipidemia: Code(s): E78.5 - Hyperlipidemia, unspecified Status: Acute Assessment and Plan: LDL 150. Started on high-intensity statin. History of Present Illness History of Present Illness Consult date/time: 07/27/22 10:16 Requesting physician: Hilary Nassar PA-C Consult reason: chest pain Reason For Visit: NSTEMI,Uncontrolled Diabetes Narrative: We are consulted for NSTEMI. This is a 47-year-old female with a history of diabetes (not on home medications) who presented with chest pain that radiated up to her neck. Began during a stressful meeting at work yesterday. Has no history of cardiac issues. Has not had chest pain. Patient went home after her meeting, however, chest pain persisted, therefore, patient came to ER for further evaluation. EKGs without ischemic changes. Troponins were mildly elevated at 0.455 --> 0.737 --> 0.763. Patient was started on Heparin drip, along with low-dose NTG drip for ongoing pain. Patient reports that her pain this morning is mild. CTA was done, which was negative for PE. Review of Systems Review of Systems: 12 point ROS obtained. Negative, unless stated in HPI. [facility] Past Medical History Medical History Anxiety Diet-controlled diabetes mellitus History of migraine Surgical History Surgical History Status post excision of lipoma Family History Family History Father Hypertension Family history of elevated blood lipids Family history of diabetes mellitus in first degree relative Family history of coronary artery disease Grandparent Hypertension Family history of elevated blood lipids Diabetes mellitus Mother Hypertension Family history of elevated blood lipids Family history of diabetes mellitus in first degree relative Social History Social History Social History: Surrogate medical decision maker: Kaylen Isidro, mother. Code status: Full code. Smoking status: Never smoker Alcohol intake: current Alcohol use details: Social alcohol use in moderation. Substance use: never Substance use type: does not use Lack of Transportation: No Lack of Food: Never True Current Housing: I Have Housing Concerned About Future Housing: No Difficulty Paying Gas/Electric Bills: No Difficulty Paying for Meds: No Currently Unemployed: No Education: Associate Degree Difficulty w/ Childcare or Family Care: No Living arrangements: with family Additional living arrangements comments: Lives in [place] with son, daughter, and granddaughter. 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 Spiritual care concerns: No Meds Home Medications and Allergies Home Medications Medication
[2022-07-27 10:18] LABS: Partial Thromboplastin Time 50.9 SECONDS (22.3-36.8)
--- NOTE | 2022-07-27 11:13 | WPDMODSED ---
Moderate Sedation Note-Pt Data Patient Data Diagnosis: NSTEMI Present Complaint: Chest pain Procedure to be performed/Plan: Coronary angiography, LHC, +/- PCI Allergies Allergy/AdvReac Type Severity Reaction Status Date / Time No Known Allergies Allergy Verified 07/26/22 16:44 Home Medications Medication Instructions Recorded Confirmed Type No Home Medications 07/14/22 07/26/22 History Current Medications: Active Medications Aspirin (Aspirin 81 Mg Enteric Tablet) 81 mg PO QAM [facility] Last Admin: 07/27/22 09:59 Dose: 81 mg Atorvastatin Calcium (Atorvastatin 40 Mg Tablet) 80 mg PO DAILY [facility] Last Admin: 07/27/22 09:59 Dose: 80 mg Dextrose (Dextrose 50% 25 Gm/50 Ml Syringe) 12.5 gm IV PUSH PRN PRN; Protocol PRN Reason: Hypoglycemia Glucagon (Glucagon For Inj 1 Mg Vial) 1 mg IM PRN PRN; Protocol PRN Reason: Hypoglycemia Glucose (Glucose Oral Gel 15 Gm Of Glucse In 37.5 Gm Tube) 15 gm PO PRN PRN; Protocol PRN Reason: Hypoglycemia Heparin Sodium (Porcine) (Heparin Sodium 5,000 Units/Ml Vial) 4,000 units IV PUSH PRN PRN PRN Reason: aPTT less than 55 seconds Last Admin: 07/27/22 03:57 Dose: 4,000 units Heparin Sodium (Porcine) (Heparin Sodium 5,000 Units/Ml Vial) 2,500 units IV PUSH PRN PRN PRN Reason: aPTT 55 - 70 seconds Heparin Sodium/Dextrose (Heparin Sodium/D5w 100 Units/Ml) 25,000 units in 250 mls @ 11 mls/hr IV CONT .[id number] BINTA; Protocol Last Titration: 07/27/22 03:55 Dose: 1,100 units/hr, 11 mls/hr Nitroglycerin/Dextrose (Nitroglycerin In 5% Dextrose 50 Mg) 50 mg in 250 mls @ 3 mls/hr IV CONT .Q24H BINTA; Protocol Last Titration: 07/27/22 07:06 Dose: 10 mcg/min, 3 mls/hr Dextrose (Dextrose 5% 1,000 Ml) 1,000 mls @ 100 mls/hr IVPB PRN PRN; Protocol PRN Reason: Hypoglycemia Insulin Aspart (Insulin Aspart (*Bkc) 100 Units/Ml) 3 - 6 units SUB-Q Q4HR BINTA; Protocol Metoprolol Succinate (Metoprolol Succinate Ext Rel 25 Mg Tabcr) 25 mg PO QAM BINTA Morphine Sulfate (Morphine Sulfate (*Crx) 2 Mg/Ml Inj) 2 mg IV PUSH Q4H PRN PRN Reason: Pain Rated 7-10 Nitroglycerin (Nitroglycerin Sl 0.4 Mg Tablet) 0.4 mg SUBLINGUAL Q5MIN PRN PRN Reason: Chest Pain Sedation/Anesthesia: No previous sedation/anesthesia problems (including family history). [facility] Past Medical History Medical History Anxiety Diet-controlled diabetes mellitus History of migraine Surgical History Surgical History Status post excision of lipoma Family History Family History Father Hypertension Family history of elevated blood lipids Family history of diabetes mellitus in first degree relative Family history of coronary artery disease Grandparent Hypertension Family history of elevated blood lipids Diabetes mellitus Mother Hypertension Family history of elevated blood lipids Family history of diabetes mellitus in first degree relative Social History Social History Social History: Surrogate medical decision maker: Kaylen Isidro, mother. Code status: Full code. Smoking status: Never smoker Alcohol intake: current Alcohol use details: Social alcohol use in moderation. Substance use: never Substance use type: does not use Lack of Transportation: No Lack of Food: Never True Current Housing: I Have Housing Concerned About Future Housing: No Difficulty Paying Gas/Electric Bills: No Difficulty Paying for Meds: No Currently Unemployed: No Education: Associate Degree Difficulty w/ Childcare or Family Care: No Living arrangements: with family Additional living arrangements comments: Lives in [place] with son, daughter, and granddaughter. 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 Spiritual care concerns: No Mod Sed Physical Exam Physi
--- NOTE | 2022-07-27 11:19 | WPDCNINT ---
Assessment and Plan Assessment and plan (1) Non-ST elevation myocardial infarction (NSTEMI): Code(s): I21.4 - Non-ST elevation (NSTEMI) myocardial infarction Status: Acute Assessment and Plan: Patient was started on on heparin and nitroglycerin infusion She was also treated with aspirin and beta-brandon Echocardiogram Summary ? 1. Left ventricular chamber dimension is normal. ? 2. Left ventricular systolic function is normal, estimated at 50-55%. ? 3. There is hypokinesis of the mid anterolateral wall, mid anterior wall, and anteroseptal wall. ? 4. The left ventricular diastolic function is grade I diastolic dysfunction. ? 5. Right ventricular systolic function is normal. ? 6. No significant valvular disease Patient underwent cardiac catheterization which showed 1. Coronary artery disease with a significant 99% mid LCX stenosis s/p successful PCI with WEN x 1. 2. Distal apical LAD with an obstructive lesion, however given the location and very small caliber size of vessel, not suitable for PCI. Recommend medical management. 3. Moderate disease of proximal RCA. 4. Moderate disease of proximal LCX. 5. Left ventricular end-diastolic pressure of 18mmHg Postprocedure patient had recurrence of chest pain and nausea. I discussed with Cardiology Dr. Rangel who was at bedside and evaluated pt. EKG was repeated and reviewed by both of us. Showed T-wave changes in anterior lead. Nitroglycerin x2 were given which helped patient's pain and patient was restarted on nitroglycerin infusion at low rate. Will give 500 mL normal saline bolus and started on IV fluids for renal protection I will treat her nausea with Zofran and Phenergan P.r.n. morphine if blood pressure allows (2) Diabetes mellitus: Qualifiers: Diabetes mellitus complication status: with hyperglycemia Diabetes mellitus correction insulin use: without terminal supervisor use Diabetes mellitus type: type 2 Qualified Code(s): E11.65 - Type 2 diabetes mellitus with hyperglycemia Code(s): E11.9 - Type 2 diabetes mellitus without complications Status: Acute Assessment and Plan: Poorly controlled with HbA1c of 10.5 Consult dietitian Started on sliding scale at this time as patient is NPO Will need to be started on diabetic medications (3) Hyperlipidemia: Code(s): E78.5 - Hyperlipidemia, unspecified Status: Acute Assessment and Plan: Patient started on Lipitor (4) Nausea: Code(s): R11.0 - Nausea Status: Acute Assessment and Plan: PPI P.r.n. Zofran and Phenergan P.r.n. Maalox Plan DVT prophylaxis -patient received heparin. Stress ulcer prophylaxis -PPI Nutrition -NPO Total Critical Care Time - 40 minutes Due to a high probability of clinically significant, life threatening deterioration, the patient required my highest level of preparedness to intervene emergently and I personally spent this critical care time directly and personally managing the patient. This critical care time included obtaining a history; examining the patient; pulse oximetry; ordering and review of studies; arranging urgent treatment with development of a management plan; evaluation of patient's response to treatment; frequent reassessment; and discussions with other providers. It was exclusive of separately billable procedures and treating other patients and teaching time. Please see Assessment and Plan section and the rest of the note for further information on patient assessment and treatment [employer] Crewmember Consult Note Consult date: 07/27/22 Reason for consult: Non-STEMI HPI: Lori Horvath is a 47 year old female with diet-controlled diabetes who presented to the emergency department from home yesterday with chief complaint of chest pain. She was in her usual state of health when she got up yesterday morning and she went to work as per usual. At about 13:30 she attended a work meeting which was very stressful and during that meeting she
--- NOTE | 2022-07-27 12:50 | WPDCARDPROC ---
Cardiac Cath Procedure Note Date of procedure:: 07/27/22 Performing physician:: CATHETERIZATION LABORATORY REPORT Procedure Date: 07/27/2022 Assistant Professor Of Surgery: Charo Rangel M.D., [facility]? Referring Physician: Charo Rangel M.D. ? Anesthesia: Versed and Fentanyl were ordered and given in my presence at 11:19, procedure ended at 12:44. Supervision of nurse monitored moderate sedation with Versed and Fentanyl was provided for 85 minutes. Total of Versed 2.5mg and Fentanyl 150mcg were administered by the Purler RN Divya Rivas. Pre-op Diagnosis: NSTEMI Post-op Diagnosis: 1. Coronary artery disease with a significant 99% mid LCX stenosis s/p successful PCI with WEN x 1. 2. Distal apical LAD with an obstructive lesion, however given the location and very small caliber size of vessel, not suitable for PCI. Recommend medical management. 3. Moderate disease of proximal RCA. 4. Moderate disease of proximal LCX. 5. Left ventricular end-diastolic pressure of 18mmHg Procedure(s): 1. Moderate sedation 2. Ultrasound-guided access of the right radial artery and right common femoral artery 3. Coronary angiography 4. Left heart cath 5. PCI of mid LCX with WEN x 1 6. Angioseal closure of the right common femoral artery Access Site: Right radial artery Right common femoral artery Brief History and Clinical Indications: Patient is a 47-year-old female who is referred for cardiac catheterization for NSTEMI. All risks, benefits and alternatives to left heart catheterization with or without percutaneous coronary intervention was discussed at length with the patient. Risk of complications including but not limited to bleeding, infection, arrhythmia, stroke, worsening kidney function, blood loss, groin hematoma, limb loss, emergency coronary artery bypass grafting, and even were discussed with the patient and all questions were answered. The patient understood and wished to proceed. Time out called, patient name, date of , medical record number, allergies, procedure performed, identify Assistant Professor Of Surgery, patient and staff member concurred with accurate data, procedure carried on. Findings: LEFT HEART CATHETERIZATION FINDINGS: 1. Left main: The left main coronary artery is widely patent without any significant obstructive disease. 2. Left anterior descending: The proximal and mid LAD have mild luminal irregularities. The distal LAD has diffuse disease. The distal-apical LAD has a focal 80-90% stenosis (given the location and very small caliber vessel size, this is not amenable to PCI). Diagonal branches are of very small caliber and diffusely diseased. 3. Left circumflex: The proximal LCX has moderate 50% stenosis. There is a 99% focal stenosis in the mid LCX. The AV groove LCX is atretic. OM-1, OM-2, and OM-3 branches are of small caliber and with mild diffuse disease. 4. Right coronary artery: The RCA is the dominant vessel. The RCA is calcific. The proximal RCA has a moderate 50-60% focal stenosis. The mid and distal RCA have mild diffuse disease. The RPLV is a small caliber vessel with mild-moderate diffuse disease. The RPDA is a small-medium caliber vessel with mild diffuse disease. 5. Left ventricle: A. End-diastolic pressure 18mmHg. B. LV gram deferred. C. No significant gradient across aortic valve on catheter pullback. Description of Procedure: Informed consent signed and placed in the chart. Patient transferred to microbiology laboratory manager room. Prepped and draped in usual sterile fashion. 2% lidocaine injected subcutaneously in right wrist area. 22-gauge venipuncture catheter used to access the right radial artery with the Seldinger technique. 6-FR slender sheath placed in right radial artery. Nitroglycerine and Verapamil were given intraarterial through the sheath. Versacore wire advanced under fluoroscopy 5F Tig 4 advanced into aortic root. Unable to engage catheter in coronary arteries due to aorta tortuosity. Attempted to engage LM
--- NOTE | 2022-07-27 13:21 | ECG_ITS ---
Measurements Intervals [place] Rate: 73 P: 48 IN: 132 QRS: 12 QRSD: 109 T: 129 QT: 415 QTc: 460 Interpretive Statements SINUS RHYTHM ST-T WAVE ABNORMALITY IN HIGH LATERAL LEADS- CONSIDER ISCHEMIA BASELINE WANDER- I, II, AVR, AVL, V6 ABNORMAL ECG COMPARED TO ECG 07/27/2022 00:04:26 ST-WAVE ABNORMALITY NOW PRESENT Electronically Signed On 07-27-2022 16:16:24 PHYSICIAN PRACTICE MARKET MANAGER by Cj Small D.O.
--- NOTE | 2022-07-27 13:30 | PC.NURSE ---
Pt arrived back to ICU 8 from labor utilization superintendent with labor utilization superintendent nurses at bedside. Pt crying reporting midsternal chest pain rated 6/[address] Medina and Dr. Rangel at bedside. STAT EKG completed with minimal changes. Reviewed by Dr. Medina and Dr. Rangel at bedside. Administered 2 doses sublingual nitro and restarted nitro drip. Please see MAR.
[2022-07-27 13:35] LABS: Glucose Point of Care 271 mg/dl (65-105)
[2022-07-27] MEDS: PROMETHAZINE HCL 25 MG/ML AMPUL IM (13:58)
[2022-07-27 14:01] LABS: Glucose Point of Care 320 mg/dl (65-105)
--- NOTE | 2022-07-27 14:24 | PCCCNOTE ---
On 07/27/22, the student, [Nia Ashton ], provided care and completed [facility] documentation on this patient. I have reviewed the student's documentation and agree with the findings.
[2022-07-27] MEDS: SODIUM CHLORIDE 0.9% IV 1,000 ML 500 ML IV CONT (14:30)
[2022-07-27] MEDS: PANTOPRAZOLE SODIUM IV 40 MG VIAL IV PUSH (15:09)
[2022-07-27] MEDS: SODIUM CHLORIDE 0.9% IV 1,000 ML 100 ML IV CONT (15:24)
[2022-07-27 16:44] LABS: Glucose Point of Care 315 mg/dl (65-105)
--- NOTE | 2022-07-27 16:49 | PM.IMPN ---
Progress Note: A&P Assessment and Plan (1) Non-ST elevation myocardial infarction (NSTEMI): Code(s): I21.4 - Non-ST elevation (NSTEMI) myocardial infarction Status: Acute (2) Pulmonary nodules: Code(s): R91.8 - Other nonspecific abnormal finding of lung field Status: Acute (3) Diet-controlled diabetes mellitus: Code(s): E11.9 - Type 2 diabetes mellitus without complications Status: Acute Plan The patient presented to the emergency department from home for evaluation of midsternal chest pressure radiating to the neck and back with associated lightheadedness, anxiety, nausea, and shortness of breath. This occurred suddenly during a stressful meeting. Her symptoms have improved somewhat with nitroglycerin. Initial troponin was elevated and will be trended to peak. EKG does not show any acute ST segment elevations or depression. She was given aspirin 324 mg and was started on heparin drip in the ED due to troponinemia. Dr. Faulkner was consulted and he recommends keeping the patient NPO after midnight for possible cardiac catheterization tomorrow. She has never had similar symptoms and has never had a cardiac workup in the past. Echocardiogram has been ordered to evaluate wall motion and EF; takotsubo cardiomyopathy is a possibility given the scenario in which she developed the chest pain. Her blood pressures have been a bit elevated but reasonable. Random glucose was 365 and with further questioning she admits that she is not very diligent about checking her glucose at home. She certainly has risk factors for coronary artery disease though she has no known history of such and she denies known history of premature coronary artery disease. Initiate sliding scale insulin, Accu-Cheks, and hypoglycemic protocol. Check hemoglobin A1c. At the very least she will need to be started on metformin and she would benefit from empagliflozin as well given cardiac risk factors. If A1c is significantly elevated she may need to be started on insulin for a time. Check fasting lipids in a.m.. Pulmonary nodules are noted on chest CT, likely benign as she does not really have risk factors for malignancy. May consider follow-up CT in several months per Radiology report. 07/27/2022 interval history: patient is a 47-year-old female presented with a complaint chest pain patient was found to have a non STEMI and seen by dial screw assembler and was taken to the cardiac catheterization, and was found to have stenosis of circumflex artery and stent dial screw assembler recommended medical management with dual anti-platelet therapy. currently patient is somnolent and [place], being monitored in ICU, likely stable will continue to monitor and further recommendation to follow Subjective Date/time seen: 07/27/22 16:49 Chest pain. HPI-Narrative: This is a very pleasant 47-year-old female with diet-controlled diabetes who presented to the emergency department from home for evaluation of chest pain. Patient provides the following history. She was in her usual state of health when she got up this morning and she went to work as per usual. At about 13:30 she attended a work meeting which was very stressful and during that meeting she developed sudden onset of a severe squeezing/pressure-like pain in the mid chest which radiated into the neck and through to the back. She was also feeling lightheaded, anxious, nauseated, and short of breath with the chest pain. She left work after the meeting to rest and when her symptoms continued she came in for evaluation. She was given aspirin and nitroglycerin in the emergency department and the nitro seemed to help, taking her pain from 02/05 to 10/05. She is not having any significant symptoms at this time. She has never had similar symptoms. She denies syncope, near syncope, pleuritic pain, palpitations, sensations of racing heart, and lower extremity edema. She does mention having an upper respiratory infection several week
[2022-07-27] MEDS: ONDANSETRON INJ 4 MG/2 ML VIAL IV PUSH (18:43)
[2022-07-27] MEDS: METOCLOPRAMIDE HCL INJ 10 MG/2 ML VIAL IV PUSH (20:00)
[2022-07-27] MEDS: KETOROLAC 15 MG/ML VIAL (*BKC) IV PUSH (20:01)
[2022-07-27 20:13] LABS: Glucose Point of Care 297 mg/dl (65-105)
[2022-07-28] VITALS (17 sets, daily range): BP systolic 86–122; BP diastolic 57–82; PULSE 81–102; RESP 18–30; TEMP 36.8–37; O2SAT 93–97
[2022-07-28] MEDS: INSULIN ASPART (*BKC) 100 UNITS/ML SUB-Q ×5 (00:13→16:45)
[2022-07-28 00:22] LABS: Glucose Point of Care 224 mg/dl (65-105)
[2022-07-28 04:43] LABS: Glucose Point of Care 220 mg/dl (65-105)
[2022-07-28 04:56] LABS: Hematocrit 38.6 % (37.0-47.0); Hemoglobin 12.7 g/dL (12.0-15.0); Mean Corpuscular HGB Conc 32.9 g/dl (32-36); Mean Corpuscular Hemoglobin 28.9 pg (26-34); Mean Corpuscular Volume 87.9 fl (80-100); Mean Platelet Volume 11.4 fl (7.4-10.4); Platelet Count Result 183 k/mm3 (150-375); Red Blood Count 4.39 M/mm3 (4.2-5.4); Red Cell Distribution Width 13.8 % (11.5-14.5); White Blood Count 7.8 K/mm3 (4.5-10.0)
[2022-07-28 05:08] LABS: Alanine Aminotransferase 39 U/L (6-35); Albumin Level 3.4 g/dL (3.5-5.1); Alkaline Phosphatase 69 U/L (38-126); Anion Gap 4 mmol/L (8-16); Aspartate Amino Transferase 192 U/L (14-36); Bilirubin,Total 0.9 mg/dL (0.2-1.3); Blood Urea Nitrogen 9 mg/dL (7-17); Calcium 8.2 mg/dL (8.4-10.2); Carbon Dioxide 21 mmol/L (22-30); Chloride 108 mmol/L (98-107); Estimated CRCL calculation 138 ml/min; Estimated Glomerular Filt Rate > 60; Glucose 201 mg/dL (65-110); Magnesium 1.8 mg/dL (1.6-2.3); Potassium 3.8 mmol/L (3.4-5.0); Sodium 133 mmol/L (137-145)
[2022-07-28 09:14] LABS: Glucose Point of Care 259 mg/dl (65-105)
[2022-07-28] MEDS: INSULIN GLARGINE (*BKC) 100 UNITS/ML 10 UNITS SUB-Q (09:38)
[2022-07-28] MEDS: METOPROLOL SUCCINATE EXT REL 25 MG TABCR PO (09:38)
[2022-07-28] MEDS: PANTOPRAZOLE SODIUM IV 40 MG VIAL IV PUSH (09:38)
[2022-07-28] MEDS: IBUPROFEN 400 MG TABLET PO ×3 (09:38→21:15)
[2022-07-28] MEDS: CLOPIDOGREL BISULFATE 75 MG TABLET PO (09:39)
[2022-07-28] MEDS: ATORVASTATIN 40 MG TABLET 80 MG PO (09:39)
[2022-07-28] MEDS: ASPIRIN 81 MG ENTERIC TABLET PO (09:40)
--- NOTE | 2022-07-28 10:16 | PM.PNCARD ---
Progress Note: A&P Assessment and Plan (1) Non-ST elevation myocardial infarction (NSTEMI): Code(s): I21.4 - Non-ST elevation (NSTEMI) myocardial infarction Status: Acute Assessment and Plan: Cardiac cath 07/27/2022 showed: 1. Coronary artery disease with a significant 99% mid LCX stenosis s/p successful PCI with WEN x 1. 2. Distal apical LAD with an obstructive lesion, however given the location and very small caliber size of vessel, not suitable for PCI. Recommend medical management. 3. Moderate disease of proximal RCA. 4. Moderate disease of proximal LCX. 5. Left ventricular end-diastolic pressure of 18mmHg TTE 07/27 showed preserved LVEF, no significant valvular disease. Continue ASA 81mg once daily indefinitely. Continue Plavix 75mg once daily for at least 1 year. Continue high-intensity statin. Continue beta brandon. Referral to cardiac rehab placed. Will start Imdur for antianginal therapy. GI protection while on DAPT with Protonix. Needs control of her diabetes to prevent progression of her diabetic heart disease. Will have patient follow up with us in clinic as an outpatient. (2) Hyperlipidemia: Code(s): E78.5 - Hyperlipidemia, unspecified Status: Acute Assessment and Plan: High intensity statin. (3) Diabetes mellitus: Qualifiers: Diabetes mellitus complication status: with hyperglycemia Diabetes mellitus physics faculty member insulin use: without physics faculty member use Diabetes mellitus type: type 2 Qualified Code(s): E11.65 - Type 2 diabetes mellitus with hyperglycemia Code(s): E11.9 - Type 2 diabetes mellitus without complications Status: Acute Assessment and Plan: Needs control of her diabetes to prevent progression of her diabetic heart disease. Will start Jardiance. Subjective Date/time seen: 07/28/22 10:16 Interval history: Reason for visit: NSTEMI HPI: This is a 47-year-old female with a history of diabetes (not on home medications) who presented with chest pain that radiated up to her neck. Began during a stressful meeting at work yesterday. Has no history of cardiac issues. Has not had chest pain. Patient went home after her meeting, however, chest pain persisted, therefore, patient came to ER for further evaluation. EKGs without ischemic changes.? Troponins were mildly elevated at 0.455 --> 0.737 --> 0.763. Patient was started on Heparin drip, along with low-dose NTG drip for ongoing pain. Patient reports that her pain this morning is mild. CTA was done, which was negative for PE. Date of service 07/28/2022: Cardiac cath yesterday showed significant mid LCX lesion s/p successful PCI with WEN x 1. No procedural complications, however, patient did develop significant nausea after the cath. Patient reports she feels better this morning. Nausea is mild. Has pleuritic chest pain that got better with a dose of Toradol. Review of Systems Review of Systems: 8 point ROS obtained. Negative, unless stated in HPI. Exam Const: General: comfortable and no acute distress HENMT: Mouth: Yes moist mucous membranes Eyes: General: appearance normal, both eyes and all related structures Sclera: sclerae normal Neck: Neck: supple Resp: Effort & Inspection: normal respiratory effort Auscultation: clear to auscultation bilaterally Cardio: Rate: regular rate Rhythm: regular rhythm Heart sounds: no murmurs GI: GI Palp: Yes Soft to palpation and No Tenderness to palpation present (GI) Skin: General skin exam: normal color Neuro: Speech: normal speech Extrem: General: normal to inspection Psych: Mental Status: mental status grossly normal Affect: normal affect Objective Data Vital Signs Vital Signs: Vital Signs - 24 hr 07/27/22 13:32 07/27/22 19:42 07/27/22 19:35 Temperature Pulse Rate 76 90 Respiratory Rate 26 H Blood Pressure 123/75 116/78 122/77 Pulse Oximetry Oxygen Delivery 07/27/22 19:00 07/27/22 20:00 07/27/22 20:00
--- NOTE | 2022-07-28 10:43 | WPDINTPN ---
Progress Note: A&P Assessment and Plan (1) Non-ST elevation myocardial infarction (NSTEMI): Code(s): I21.4 - Non-ST elevation (NSTEMI) myocardial infarction Status: Acute Assessment and Plan: Echocardiogram Summary ? 1. Left ventricular chamber dimension is normal. ? 2. Left ventricular systolic function is normal, estimated at 50-55%. ? 3. There is hypokinesis of the mid anterolateral wall, mid anterior wall, and anteroseptal wall. ? 4. The left ventricular diastolic function is grade I diastolic dysfunction. ? 5. Right ventricular systolic function is normal. ? 6. No significant valvular disease Patient underwent cardiac catheterization which showed 1. Coronary artery disease with a significant 99% mid LCX stenosis s/p successful PCI with WEN x 1. 2. Distal apical LAD with an obstructive lesion, however given the location and very small caliber size of vessel, not suitable for PCI. Recommend medical management. 3. Moderate disease of proximal RCA. 4. Moderate disease of proximal LCX. 5. Left ventricular end-diastolic pressure of 18mmHg Postprocedure patient had recurrence of chest pain and nausea. I discussed with Cardiology Dr. Rangel who was at bedside and evaluated pt. EKG was repeated and reviewed by both of us. Showed T-wave changes in anterior lead. Nitroglycerin x2 were given which helped patient's pain and patient was restarted on nitroglycerin infusion at low rate. patient was given 500 mL normal saline bolus and started on IV fluids for renal protection her nausea was treated withh Zofran and Phenergan continue aspirin statin Plavix Jardiance and beta-brandon (2) Diabetes mellitus: Qualifiers: Diabetes mellitus complication status: with hyperglycemia Diabetes mellitus tank terminal gauger insulin use: without fpc use Diabetes mellitus type: type 2 Qualified Code(s): E11.65 - Type 2 diabetes mellitus with hyperglycemia Code(s): E11.9 - Type 2 diabetes mellitus without complications Status: Acute Assessment and Plan: Poorly controlled with HbA1c of 10.5 Consult dietitian and clinical nurse educator continue sliding scale insulin and add Lantus Jardiance added will discuss with Internal Medicine regarding starting her on p.o. diabetic medications (3) Hyperlipidemia: Code(s): E78.5 - Hyperlipidemia, unspecified Status: Acute Assessment and Plan: continueLipitor (4) Nausea: Code(s): R11.0 - Nausea Status: Acute Assessment and Plan: continue PPI IV Reglan given last night help I will start patient on p.o. Q a.c. and HS Reglan P.r.n. Zofran P.r.n. Maalox (5) Chest pain: Code(s): R07.9 - Chest pain, unspecified Status: Acute Assessment and Plan: patient continues to complain of chest pain off and on. from history it appears to be noncardiac and pleuritic or musculoskeletal in nature. Discussed with Cardiology will start ibuprofen for next 24 hours Reglan for gastroparesis she is on PPI and p.r.n. antiemetics Plan DVT prophylaxis - SCDs. I anticipate patient will ambulate Stress ulcer prophylaxis -PPI Nutrition - diabetic diet incentive spirometry, up in chair transfer out of ICU Subjective Date/time seen: 07/28/22 10:43 patient states that she is feeling better today as compared to yesterday. She states that she has still has pain in her chest and she rates it at 4/10. she states this pressure in quality but is worse with deep breathing and she feels that she feels better if she takes short breaths. she denies any shortness of breath dizziness lightheadedness palpitations. no radiation of pain. she Ate some pudding last night. afebrile. Urine output is adequate. other vital signs are stable. All other systems were reviewed and were negative Review of Systems Review of Systems: All systems reviewed & are unremarkable except as noted in HPI and below (HPI) Exam Narrative: General: Pt
[2022-07-28 11:45] LABS: Glucose Point of Care 324 mg/dl (65-105)
[2022-07-28] MEDS: ISOSORBIDE MONONITRATE 30 MG TAB.ER.24H PO (11:54)
[2022-07-28] MEDS: METOCLOPRAMIDE HCL 5 MG TABLET PO ×3 (11:55→21:15)
[2022-07-28] MEDS: EMPAGLIFLOZIN 10 MG TABLET PO (11:55)
[2022-07-28 16:45] LABS: Glucose Point of Care 240 mg/dl (65-105)
[2022-07-28] MEDS: metFORMIN HCL XR 500 MG TAB.SR.24H PO (16:45)
[2022-07-28] MEDS: glipiZIDE XL 2.5 MG TAB.ER.24 PO (16:46)
--- NOTE | 2022-07-28 17:12 | PM.IMPN ---
Progress Note: A&P Assessment and Plan (1) Non-ST elevation myocardial infarction (NSTEMI): Code(s): I21.4 - Non-ST elevation (NSTEMI) myocardial infarction Status: Acute (2) Pulmonary nodules: Code(s): R91.8 - Other nonspecific abnormal finding of lung field Status: Acute (3) Diet-controlled diabetes mellitus: Code(s): E11.9 - Type 2 diabetes mellitus without complications Status: Acute Plan The patient presented to the emergency department from home for evaluation of midsternal chest pressure radiating to the neck and back with associated lightheadedness, anxiety, nausea, and shortness of breath. This occurred suddenly during a stressful meeting. Her symptoms have improved somewhat with nitroglycerin. Initial troponin was elevated and will be trended to peak. EKG does not show any acute ST segment elevations or depression. She was given aspirin 324 mg and was started on heparin drip in the ED due to troponinemia. Dr. Faulkner was consulted and he recommends keeping the patient NPO after midnight for possible cardiac catheterization tomorrow. She has never had similar symptoms and has never had a cardiac workup in the past. Echocardiogram has been ordered to evaluate wall motion and EF; takotsubo cardiomyopathy is a possibility given the scenario in which she developed the chest pain. Her blood pressures have been a bit elevated but reasonable. Random glucose was 365 and with further questioning she admits that she is not very diligent about checking her glucose at home. She certainly has risk factors for coronary artery disease though she has no known history of such and she denies known history of premature coronary artery disease. Initiate sliding scale insulin, Accu-Cheks, and hypoglycemic protocol. Check hemoglobin A1c. At the very least she will need to be started on metformin and she would benefit from empagliflozin as well given cardiac risk factors. If A1c is significantly elevated she may need to be started on insulin for a time. Check fasting lipids in a.m.. Pulmonary nodules are noted on chest CT, likely benign as she does not really have risk factors for malignancy. May consider follow-up CT in several months per Radiology report. 07/28/2022 interval history: patient is a 47-year-old female presented with a complaint chest pain patient was found to have a non STEMI and seen by prison librarian and was taken to the cardiac catheterization, and was found to have stenosis of circumflex artery and stent prison librarian recommended medical management with dual anti-platelet therapy. patient is also found to have uncontrolled diabetes with hemoglobin A1c of 10 point, unfortunately currently patient is not on any antidiabetic medication as patient does not have a primary care, start the patient on metformin 500 mg b.i.d. and Glucotrol 2.5 mg b.i.d. with meals, will consult methods study analyst, being monitored in ICU, likely stable will continue to monitor and further recommendation to follow Subjective Date/time seen: 07/28/22 17:12 The patient presented to the emergency department from home for evaluation of midsternal chest pressure radiating to the neck and back with associated lightheadedness, anxiety, nausea, and shortness of breath. This occurred suddenly during a stressful meeting. Her symptoms have improved somewhat with nitroglycerin. Initial troponin was elevated and will be trended to peak. EKG does not show any acute ST segment elevations or depression. She was given aspirin 324 mg and was started on heparin drip in the ED due to troponinemia. Dr. Faulkner was consulted and he recommends keeping the patient NPO after midnight for possible cardiac catheterization tomorrow. She has never had similar symptoms and has never had a cardiac workup in the past. Echocardiogram has been ordered to evaluate wall motion and EF; takotsubo cardiomyopathy is a possibility given the scenario in which she developed the chest pain. Her blood
[2022-07-28 21:55] LABS: Glucose Point of Care 187 mg/dl (65-105)
[2022-07-29] VITALS (15 sets, daily range): BP systolic 88–142; BP diastolic 60–79; PULSE 81–109; RESP 16–23; TEMP 36.3–37.7; O2SAT 93–98
[2022-07-29 04:08] LABS: Hematocrit 35.7 % (37.0-47.0); Hemoglobin 11.8 g/dL (12.0-15.0); Mean Corpuscular HGB Conc 33.1 g/dl (32-36); Mean Corpuscular Hemoglobin 28.3 pg (26-34); Mean Corpuscular Volume 85.6 fl (80-100); Mean Platelet Volume 11.9 fl (7.4-10.4); Platelet Count Result 177 k/mm3 (150-375); Red Blood Count 4.17 M/mm3 (4.2-5.4); Red Cell Distribution Width 13.8 % (11.5-14.5); White Blood Count 7.3 K/mm3 (4.5-10.0)
[2022-07-29 04:28] LABS: Alanine Aminotransferase 42 U/L (6-35); Albumin Level 3.3 g/dL (3.5-5.1); Alkaline Phosphatase 69 U/L (38-126); Anion Gap 5 mmol/L (8-16); Aspartate Amino Transferase 160 U/L (14-36); Blood Urea Nitrogen 11 mg/dL (7-17); Calcium 8.3 mg/dL (8.4-10.2); Carbon Dioxide 23 mmol/L (22-30); Chloride 110 mmol/L (98-107); Estimated CRCL calculation 117 ml/min; Estimated Glomerular Filt Rate > 60; Glucose 99 mg/dL (65-110); Magnesium 1.7 mg/dL (1.6-2.3); Potassium 3.4 mmol/L (3.4-5.0); Sodium 138 mmol/L (137-145)
[2022-07-29] MEDS: METOCLOPRAMIDE HCL 5 MG TABLET PO ×4 (06:26→21:22)
[2022-07-29 07:33] LABS: Glucose Point of Care 142 mg/dl (65-105)
[2022-07-29] MEDS: ASPIRIN 81 MG ENTERIC TABLET PO (08:11)
[2022-07-29] MEDS: ATORVASTATIN 40 MG TABLET 80 MG PO (08:11)
[2022-07-29] MEDS: metFORMIN HCL XR 500 MG TAB.SR.24H PO ×2 (08:11→17:08)
[2022-07-29] MEDS: CLOPIDOGREL BISULFATE 75 MG TABLET PO (08:11)
[2022-07-29] MEDS: ISOSORBIDE MONONITRATE 30 MG TAB.ER.24H PO (08:11)
[2022-07-29] MEDS: METOPROLOL SUCCINATE EXT REL 50 MG TABCR PO (08:11)
[2022-07-29] MEDS: EMPAGLIFLOZIN 10 MG TABLET PO (08:12)
[2022-07-29] MEDS: glipiZIDE XL 2.5 MG TAB.ER.24 PO ×2 (08:12→17:09)
[2022-07-29] MEDS: PANTOPRAZOLE SODIUM IV 40 MG VIAL IV PUSH (08:13)
--- NOTE | 2022-07-29 09:23 | PM.PNCARD ---
Progress Note: A&P Assessment and Plan (1) Non-ST elevation myocardial infarction (NSTEMI): Code(s): I21.4 - Non-ST elevation (NSTEMI) myocardial infarction Status: Acute Assessment and Plan: Cardiac cath 07/27/2022 showed: 1. Coronary artery disease with a significant 99% mid LCX stenosis s/p successful PCI with WEN x 1. 2. Distal apical LAD with an obstructive lesion, however given the location and very small caliber size of vessel, not suitable for PCI. Recommend medical management. 3. Moderate disease of proximal RCA. 4. Moderate disease of proximal LCX. 5. Left ventricular end-diastolic pressure of 18mmHg TTE 07/27 showed preserved LVEF, no significant valvular disease. Continue ASA 81mg once daily indefinitely. Continue Plavix 75mg once daily for at least 1 year. Continue high-intensity statin. Continue beta brandon. Referral to cardiac rehab placed. Continue Imdur for antianginal therapy. GI protection while on DAPT with Protonix. Needs control of her diabetes to prevent progression of her diabetic heart disease. Will have patient follow up with us in clinic as an outpatient. OK for discharge today from a cardiac standpoint (2) Hyperlipidemia: Code(s): E78.5 - Hyperlipidemia, unspecified Status: Acute Assessment and Plan: High intensity statin. (3) Diabetes mellitus: Qualifiers: Diabetes mellitus complication status: with hyperglycemia Diabetes mellitus senior living insulin use: without senior living use Diabetes mellitus type: type 2 Qualified Code(s): E11.65 - Type 2 diabetes mellitus with hyperglycemia Code(s): E11.9 - Type 2 diabetes mellitus without complications Status: Acute Assessment and Plan: Needs control of her diabetes to prevent progression of her diabetic heart disease. Continue jardiance Subjective Date/time seen: 07/29/22 09:23 Cardiology follow up for CAD, NSTEMI Interval history: Reason for visit: NSTEMI HPI: This is a 47-year-old female with a history of diabetes (not on home medications) who presented with chest pain that radiated up to her neck. Began during a stressful meeting at work yesterday. Has no history of cardiac issues. Has not had chest pain. Patient went home after her meeting, however, chest pain persisted, therefore, patient came to ER for further evaluation. EKGs without ischemic changes.? Troponins were mildly elevated at 0.455 --> 0.737 --> 0.763. Patient was started on Heparin drip, along with low-dose NTG drip for ongoing pain. Patient reports that her pain this morning is mild. CTA was done, which was negative for PE. Date of service 07/28/2022: Cardiac cath yesterday showed significant mid LCX lesion s/p successful PCI with WEN x 1. No procedural complications, however, patient did develop significant nausea after the cath. Patient reports she feels better this morning. Nausea is mild. Has pleuritic chest pain that got better with a dose of Toradol. Date of service 07/29/2022: She is feeling better this morning. Has been moved out of the ICU. She is still having some 2/10 chest pain when she coughs and mild chest tightness. This is improving. No nausea or vomiting. Review of Systems Review of Systems: All systems reviewed & are unremarkable except as noted in HPI and below Exam Const: General: comfortable and no acute distress HENMT: Mouth: Yes moist mucous membranes Eyes: General: appearance normal, both eyes and all related structures Sclera: sclerae normal Neck: Neck: supple Resp: Effort & Inspection: normal respiratory effort Auscultation: clear to auscultation bilaterally Cardio: Rate: regular rate Rhythm: regular rhythm Heart sounds: no murmurs Skin: General skin exam: normal color Other: R groin and radial arterial access sites free from bleeding, hematoma, or pain. Neuro: Speech: normal speech Extrem: General: normal to inspection Psych: Mental Status: mental status grossly
--- NOTE | 2022-07-29 10:27 | PC.NURSE ---
transferred patient to room 200 via wheelchair, report given to Nia MONTALVO.
[2022-07-29 12:01] LABS: Glucose Point of Care 149 mg/dl (65-105)
--- NOTE | 2022-07-29 15:02 | PM.IMPN ---
Progress Note: A&P Assessment and Plan (1) Non-ST elevation myocardial infarction (NSTEMI): Code(s): I21.4 - Non-ST elevation (NSTEMI) myocardial infarction Status: Acute (2) Pulmonary nodules: Code(s): R91.8 - Other nonspecific abnormal finding of lung field Status: Acute (3) Diet-controlled diabetes mellitus: Code(s): E11.9 - Type 2 diabetes mellitus without complications Status: Acute Plan The patient presented to the emergency department from home for evaluation of midsternal chest pressure radiating to the neck and back with associated lightheadedness, anxiety, nausea, and shortness of breath. This occurred suddenly during a stressful meeting. Her symptoms have improved somewhat with nitroglycerin. Initial troponin was elevated and will be trended to peak. EKG does not show any acute ST segment elevations or depression. She was given aspirin 324 mg and was started on heparin drip in the ED due to troponinemia. Dr. Faulkner was consulted and he recommends keeping the patient NPO after midnight for possible cardiac catheterization tomorrow. She has never had similar symptoms and has never had a cardiac workup in the past. Echocardiogram has been ordered to evaluate wall motion and EF; takotsubo cardiomyopathy is a possibility given the scenario in which she developed the chest pain. Her blood pressures have been a bit elevated but reasonable. Random glucose was 365 and with further questioning she admits that she is not very diligent about checking her glucose at home. She certainly has risk factors for coronary artery disease though she has no known history of such and she denies known history of premature coronary artery disease. Initiate sliding scale insulin, Accu-Cheks, and hypoglycemic protocol. Check hemoglobin A1c. At the very least she will need to be started on metformin and she would benefit from empagliflozin as well given cardiac risk factors. If A1c is significantly elevated she may need to be started on insulin for a time. Check fasting lipids in a.m.. Pulmonary nodules are noted on chest CT, likely benign as she does not really have risk factors for malignancy. May consider follow-up CT in several months per Radiology report. 07/29/2022 interval history: patient is a 47-year-old female presented with a complaint chest pain patient was found to have a non STEMI and seen by digital account director and was taken to the cardiac catheterization, and was found to have stenosis of circumflex artery and a stent was placed, digital account director recommended medical management with dual anti-platelet therapy. patient is also found to have uncontrolled diabetes with hemoglobin A1c of 10.5, unfortunately currently patient is not on any antidiabetic medication as patient does not have a primary care, started the patient on metformin 500 mg b.i.d. and Glucotrol 2.5 mg b.i.d. with meals, consulted religious educator, patient is out of ICU, today patient complains of chest pain with deep breath denies any cough shortness of breath fever or chills to further evaluate chest x-ray was ordered which does not show any acute cardiopulmonary disease, stable will continue to monitor and further recommendation to follow Subjective Date/time seen: 07/29/22 15:02 The patient presented to the emergency department from home for evaluation of midsternal chest pressure radiating to the neck and back with associated lightheadedness, anxiety, nausea, and shortness of breath. This occurred suddenly during a stressful meeting. Her symptoms have improved somewhat with nitroglycerin. Initial troponin was elevated and will be trended to peak. EKG does not show any acute ST segment elevations or depression. She was given aspirin 324 mg and was started on heparin drip in the ED due to troponinemia. Dr. Faulkner was consulted and he recommends keeping the patient NPO after midnight for possible cardiac catheterization tomorrow. She has never had similar symptoms and has janise
[2022-07-29 15:18] LABS: Activated Clotting Time 335 SEC (74-137)
[2022-07-29 17:13] LABS: Glucose Point of Care 130 mg/dl (65-105)
--- NOTE | 2022-07-29 17:25 | PC.NURSE ---
This patient, Lori Horvath, was received from [facility] on 07/29/22 at 1725. Patient/family oriented to unit policies and routines
[2022-07-29 18:10] LABS: Glucose Point of Care 150 mg/dl (65-105)
[2022-07-29] MEDS: ONDANSETRON INJ 4 MG/2 ML VIAL IV PUSH (21:22)
[2022-07-29] MEDS: MORPHINE SULFATE (*CRX) 2 MG/ML INJ IV PUSH (21:22)
[2022-07-29 21:39] LABS: Glucose Point of Care 139 mg/dl (65-105)
[2022-07-30] VITALS: BP 94/52; PULSE 88; PULSE 93; RESP 20; TEMP 37.3; O2SAT 96
[2022-07-30 04:00] VITALS: BP 101/68; PULSE 84; PULSE 93; RESP 20; TEMP 37.4; O2SAT 92
[2022-07-30 05:02] LABS: Hematocrit 33.8 % (37.0-47.0); Hemoglobin 11.5 g/dL (12.0-15.0); Mean Corpuscular Hemoglobin 29.3 pg (26-34); Mean Corpuscular Volume 86.2 fl (80-100); Mean Platelet Volume 11.6 fl (7.4-10.4); Platelet Count Result 177 k/mm3 (150-375); Red Blood Count 3.92 M/mm3 (4.2-5.4); White Blood Count 8.2 K/mm3 (4.5-10.0)
[2022-07-30 05:20] LABS: Alanine Aminotransferase 38 U/L (6-35); Albumin Level 3.5 g/dL (3.5-5.1); Alkaline Phosphatase 81 U/L (38-126); Anion Gap 7 mmol/L (8-16); Aspartate Amino Transferase 94 U/L (14-36); Bilirubin,Total 1.1 mg/dL (0.2-1.3); Blood Urea Nitrogen 7 mg/dL (7-17); Calcium 8.4 mg/dL (8.4-10.2); Carbon Dioxide 23 mmol/L (22-30); Chloride 103 mmol/L (98-107); Estimated CRCL calculation 139 ml/min; Estimated Glomerular Filt Rate > 60; Glucose 97 mg/dL (65-110); Magnesium 1.7 mg/dL (1.6-2.3); Potassium 3.3 mmol/L (3.4-5.0); Sodium 133 mmol/L (137-145)
[2022-07-30] MEDS: METOCLOPRAMIDE HCL 5 MG TABLET PO ×2 (06:09→11:38)
[2022-07-30 08:26] LABS: Glucose Point of Care 108 mg/dl (65-105)
[2022-07-30 09:13] VITALS: BP 101/66; PULSE 89
[2022-07-30 09:15] VITALS: PULSE 87
[2022-07-30] MEDS: ASPIRIN 81 MG ENTERIC TABLET PO (09:19)
[2022-07-30] MEDS: EMPAGLIFLOZIN 10 MG TABLET PO (09:20)
[2022-07-30] MEDS: CLOPIDOGREL BISULFATE 75 MG TABLET PO (09:20)
[2022-07-30] MEDS: ATORVASTATIN 40 MG TABLET 80 MG PO (09:20)
[2022-07-30] MEDS: ISOSORBIDE MONONITRATE 30 MG TAB.ER.24H PO (09:21)
[2022-07-30] MEDS: metFORMIN HCL XR 500 MG TAB.SR.24H PO (09:21)
[2022-07-30 09:22] VITALS: PULSE 89
[2022-07-30] MEDS: METOPROLOL SUCCINATE EXT REL 50 MG TABCR PO (09:22)
[2022-07-30] MEDS: PANTOPRAZOLE SODIUM IV 40 MG VIAL IV PUSH (09:23)
--- NOTE | 2022-07-30 09:51 | PM.PNCARD ---
Progress Note: A&P Assessment and Plan (1) Non-ST elevation myocardial infarction (NSTEMI): Code(s): I21.4 - Non-ST elevation (NSTEMI) myocardial infarction Status: Acute Assessment and Plan: Cardiac cath 07/27/2022 showed: 1. Coronary artery disease with a significant 99% mid LCX stenosis s/p successful PCI with WEN x 1. 2. Distal apical LAD with an obstructive lesion, however given the location and very small caliber size of vessel, not suitable for PCI. Recommend medical management. 3. Moderate disease of proximal RCA. 4. Moderate disease of proximal LCX. 5. Left ventricular end-diastolic pressure of 18mmHg TTE 07/27 showed preserved LVEF, no significant valvular disease. Continue ASA 81mg once daily indefinitely. Continue Plavix 75mg once daily for at least 1 year. Continue high-intensity statin. Continue beta brandon. Referral to cardiac rehab placed. Continue Imdur for antianginal therapy. GI protection while on DAPT with Protonix. Needs control of her diabetes to prevent progression of her diabetic heart disease. Will have patient follow up with us in clinic as an outpatient. OK for discharge today from a cardiac standpoint (2) Hyperlipidemia: Code(s): E78.5 - Hyperlipidemia, unspecified Status: Acute Assessment and Plan: High intensity statin. (3) Diabetes mellitus: Qualifiers: Diabetes mellitus complication status: with hyperglycemia Diabetes mellitus alf insulin use: without alf use Diabetes mellitus type: type 2 Qualified Code(s): E11.65 - Type 2 diabetes mellitus with hyperglycemia Code(s): E11.9 - Type 2 diabetes mellitus without complications Status: Acute Assessment and Plan: Needs control of her diabetes to prevent progression of her diabetic heart disease. Continue jardiance (4) Hypokalemia: Code(s): E87.6 - Hypokalemia Status: Acute Assessment and Plan: Potassium is low today. Will give KCl 40 mg p.o. x1 Subjective Date/time seen: 07/30/22 09:51 Interval history: Reason for visit: NSTEMI HPI: This is a 47-year-old female with a history of diabetes (not on home medications) who presented with chest pain that radiated up to her neck. Began during a stressful meeting at work yesterday. Has no history of cardiac issues. Has not had chest pain. Patient went home after her meeting, however, chest pain persisted, therefore, patient came to ER for further evaluation. EKGs without ischemic changes.? Troponins were mildly elevated at 0.455 --> 0.737 --> 0.763. Patient was started on Heparin drip, along with low-dose NTG drip for ongoing pain. Patient reports that her pain this morning is mild. CTA was done, which was negative for PE. Date of service 07/28/2022: Cardiac cath yesterday showed significant mid LCX lesion s/p successful PCI with WEN x 1. No procedural complications, however, patient did develop significant nausea after the cath. Patient reports she feels better this morning. Nausea is mild. Has pleuritic chest pain that got better with a dose of Toradol. Date of service 07/29/2022: She is feeling better this morning. Has been moved out of the ICU. She is still having some 2/10 chest pain when she coughs and mild chest tightness. This is improving. No nausea or vomiting. Date of service 07/30/2022: Overall symptoms are stable and chest pain as as they have been. Gently pleuritic. No shortness of breath. Anxious to go home. Review of Systems Review of Systems: All systems reviewed & are unremarkable except as noted in HPI and below Eyes: Eyes: Denies blurry vision ENT: Denies Normal hearing present Cardiovascular: Cardiovascular: Reports chest pain and Denies diaphoresis Gastrointestinal: Gastrointestinal: Denies abdominal pain Genitourinary: Genitourinary: Denies hematuria Exam Const: General: comfortable and no acute distress HENMT: Mouth: Yes moist mucous membranes Eyes: Ge
[2022-07-30] MEDS: glipiZIDE XL 2.5 MG TAB.ER.24 PO (10:16)
[2022-07-30] MEDS: POTASSIUM CHLORIDE 20 MEQ TABLET 40 MEQ PO (10:16)
[2022-07-30 10:35] VITALS: BP 110/74; PULSE 83; RESP 16; TEMP 36.5; O2SAT 96
--- NOTE | 2022-07-30 11:47 | PM.DS ---
DS: Admitting Diagnosis Discharge Date 07/30/2022 Admitting Diagnosis Chest pain DS: Discharge Diagnosis Discharge Diagnosis (1) Non-ST elevation myocardial infarction (NSTEMI): Onset Date: 06/2022 Code(s): I21.4 - Non-ST elevation (NSTEMI) myocardial infarction Status: Acute (2) Pulmonary nodules: Code(s): R91.8 - Other nonspecific abnormal finding of lung field Status: Acute (3) Diet-controlled diabetes mellitus: Code(s): E11.9 - Type 2 diabetes mellitus without complications Status: Acute Plan The patient presented to the emergency department from home for evaluation of midsternal chest pressure radiating to the neck and back with associated lightheadedness, anxiety, nausea, and shortness of breath. This occurred suddenly during a stressful meeting. Her symptoms have improved somewhat with nitroglycerin. Initial troponin was elevated and will be trended to peak. EKG does not show any acute ST segment elevations or depression. She was given aspirin 324 mg and was started on heparin drip in the ED due to troponinemia. Dr. Faulkner was consulted and he recommends keeping the patient NPO after midnight for possible cardiac catheterization tomorrow. She has never had similar symptoms and has never had a cardiac workup in the past. Echocardiogram has been ordered to evaluate wall motion and EF; takotsubo cardiomyopathy is a possibility given the scenario in which she developed the chest pain. Her blood pressures have been a bit elevated but reasonable. Random glucose was 365 and with further questioning she admits that she is not very diligent about checking her glucose at home. She certainly has risk factors for coronary artery disease though she has no known history of such and she denies known history of premature coronary artery disease. Initiate sliding scale insulin, Accu-Cheks, and hypoglycemic protocol. Check hemoglobin A1c. At the very least she will need to be started on metformin and she would benefit from empagliflozin as well given cardiac risk factors. If A1c is significantly elevated she may need to be started on insulin for a time. Check fasting lipids in a.m.. Pulmonary nodules are noted on chest CT, likely benign as she does not really have risk factors for malignancy. May consider follow-up CT in several months per Radiology report. 07/29/2022 interval history: patient is a 47-year-old female presented with a complaint chest pain patient was found to have a non STEMI and seen by electronic scanner operator and was taken to the cardiac catheterization, and was found to have stenosis of circumflex artery and a stent was placed, electronic scanner operator recommended medical management with dual anti-platelet therapy. patient is also found to have uncontrolled diabetes with hemoglobin A1c of 10.5, unfortunately currently patient is not on any antidiabetic medication as patient does not have a primary care, started the patient on metformin 500 mg b.i.d. and Glucotrol 2.5 mg b.i.d. with meals, consulted religious educator, patient is out of ICU, today patient complains of chest pain with deep breath denies any cough shortness of breath fever or chills to further evaluate chest x-ray was ordered which does not show any acute cardiopulmonary disease, stable will continue to monitor and further recommendation to follow DS: Summary Hospital Course Reason for hospitalization: Chest pain. Narrative: This is a very pleasant 47-year-old female with diet-controlled diabetes who presented to the emergency department from home for evaluation of chest pain. Patient provides the following history. She was in her usual state of health when she got up this morning and she went to work as per usual. At about 13:30 she attended a work meeting which was very stressful and during that meeting she developed sudden onset of a severe squeezing/pressure-like pain in the mid chest which radiated into the neck and through to the back. She was also feeling l
[2022-07-30 12:12] LABS: Glucose Point of Care 115 mg/dl (65-105)
== END 2022-07-30 13:34 | disposition home or self-care (01) | DRG 174 ==
LOC: ANHED 17:35 → ANHIMU 20:20 → ANHICU 07-27 00:58 → ANHIMU 07-29 09:39 → ANH2MED 07-29 16:54
PROVIDERS: Emergency Medicine; Internal Medicine; Physician Assistant; Admitting Provider Internal Medicine; Emergency Provider Physician Assistant; Visit Provider Family Medicine
PROC: 4A023N7 Measurement of Cardiac Sampling and Pressure, Left Heart, Percutaneous Approach (ICD-10-PCS; CPT 93452; principal; 2022-07-27 11:30)
PROC: 027034Z Dilation of Coronary Artery, One Artery with Drug-eluting Intraluminal Device, Percutaneous Approach (ICD-10-PCS; CPT 92928; 2022-07-27 11:30)
PROC: 027034Z Dilation of Coronary Artery, One Artery with Drug-eluting Intraluminal Device, Percutaneous Approach (ICD-10-PCS; CPT 36140; 2022-07-27 11:30)
PROC: 027034Z Dilation of Coronary Artery, One Artery with Drug-eluting Intraluminal Device, Percutaneous Approach (ICD-10-PCS; 2022-07-27 11:30)
DX: I21.4 Non-ST elevation (NSTEMI) myocardial infarction (principal); E11.65 Type 2 diabetes mellitus with hyperglycemia; I25.10 Atherosclerotic heart disease of native coronary artery without angina pectoris; R91.8 Other nonspecific abnormal finding of lung field; E78.5 Hyperlipidemia, unspecified; E87.6 Hypokalemia; F41.9 Anxiety disorder, unspecified; E66.9 Obesity, unspecified; Z68.32 Body mass index [BMI] 32.0-32.9, adult
CPT/HCPCS: 36140; 36415; 71046; 71275; 80053; 80061; 82948; 83036; 83690; 83735; 84443; 84484; 85025; 85027; 85610; 85730; 93005; 93458; 96360; 96365; 96366; 96367; 96375; 99285; A9270; C1725; C1760; C1769; C1874; C1887; C1894; C8929; C9113; C9600; G0269; G0378; G0379; J0131; J1644; J1815; J1885; J2250; J2270; J2405; J2550; J2765; J3010; J7030; J7040; Q9957; Q9967

== ENCOUNTER 2022-07-30 22:21 | Emergency (ER) | payer OTHER, SELFPAY ==
[2022-07-30 22:24] VITALS: BP 102/62; PULSE 85; RESP 16; TEMP 36.7; O2SAT 100
--- NOTE | 2022-07-30 22:30 | PC.NURSE ---
Once typewriter mechanic triaged patient and informed patient of her current blood pressure. Patient reported she felt comfortable going home and not waiting to be seen. Patient alert and ambulatory out ED doors.
== END 2022-07-30 22:30 | disposition left against medical advice (07) ==
LOC: ANHED 22:34
DX: Z53.21 Procedure and treatment not carried out due to patient leaving prior to being seen by health care provider (principal)
CPT/HCPCS: 99199

== ENCOUNTER 2022-08-01 09:52 | Observation (INO) | payer OTHER, SELFPAY ==
--- NOTE | ~2022-08-01 | US_ITS ---
EXAMINATION: US abdomen limited DATE: 08/02/2022 08:56 INDICATION: Abnormal liver function tests. TECHNIQUE: Multiple grayscale and Doppler ultrasound images of the abdomen were obtained. COMPARISON: CT abdomen and pelvis 04/11/2022 FINDINGS: The visualized portions of the head and body of the pancreas are normal. The liver is janneth l without focal lesion. No liver surface nodularity. There is normal flow in main portal vein. The ga llbladder is normal in size. No gallstones or gallbladder wall thickening. There was no sonographic M urphy sign. The common duct is normal and measures 6 mm . IMPRESSION: 1. Normal right upper quadrant ultrasound. Reviewed, dictated and finalized at location A. 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
--- NOTE | 2022-08-01 10:09 | ECG_ITS ---
Measurements Intervals [place] Rate: 96 P: 27 RI: 129 QRS: -19 QRSD: 105 T: 103 QT: 375 QTc: 476 Interpretive Statements SINUS RHYTHM BORDERLINE R WAVE PROGRESSION, ANTERIOR LEADS T WAVE ABNORMALITY IN HIGH LATERAL LEADS- CONSIDER ISCHEMIA BASELINE ARTIFACT- I ABNORMAL ECG COMPARED TO ECG 07/27/2022 13:24:09 NO SIGNIFICANT CHANGES Electronically Signed On 08-01-2022 16:42:39 SENIOR QUALITY METHODS SPECIALIST by Cj Small D.O.
[2022-08-01 10:15] VITALS: BP 120/71; PULSE 96; RESP 14; TEMP 36.6; O2SAT 99
[2022-08-01] MEDS: SODIUM CHLORIDE 0.9% IV 1,000 ML 999 ML IV CONT ×2 (11:57→15:51)
[2022-08-01] MEDS: ONDANSETRON INJ 4 MG/2 ML VIAL IV PUSH (11:57)
[2022-08-01 12:07] LABS: Basophils Percent Auto 0.3 % (0.2-1.2); Eosinophils Percent Auto 0.3 % (0-4.4); Hematocrit 37.6 % (37.0-47.0); Hemoglobin 12.5 g/dL (12.0-15.0); Immature Granulocyte Absolute 0.05 K/mm3 (0.00-0.031); Immature Granulocyte Percent A 0.5 % (0-0.5); Lymphocytes Absolute Auto 1.34 K/mm3 (0.9-3.2); Lymphocytes Percent Auto 14.6 % (18.3-44.2); Mean Corpuscular HGB Conc 33.2 g/dl (32-36); Mean Corpuscular Hemoglobin 28.5 pg (26-34); Mean Corpuscular Volume 85.6 fl (80-100); Mean Platelet Volume 11.4 fl (7.4-10.4); Monocytes Absolute Auto 0.7 K/mm3 (0.1-0.6); Monocytes Percent Auto 7.4 % (2.6-8.5); Neutrophils Percent Auto 76.9 % (45.5-73.1); Platelet Count Result 256 k/mm3 (150-375); Red Blood Count 4.39 M/mm3 (4.2-5.4); Red Cell Distribution Width 13.6 % (11.5-14.5); White Blood Count 9.2 K/mm3 (4.5-10.0)
[2022-08-01 12:17] LABS: Alanine Aminotransferase 70 U/L (6-35); Albumin Level 4.3 g/dL (3.5-5.1); Alkaline Phosphatase 151 U/L (38-126); Anion Gap 11 mmol/L (8-16); Aspartate Amino Transferase 83 U/L (14-36); Blood Urea Nitrogen 7 mg/dL (7-17); Calcium 8.9 mg/dL (8.4-10.2); Carbon Dioxide 19 mmol/L (22-30); Chloride 103 mmol/L (98-107); Estimated CRCL calculation 113 ml/min; Estimated Glomerular Filt Rate > 60; Glucose 115 mg/dL (65-110); Lipase 101 U/L (23-300); Potassium 4.1 mmol/L (3.4-5.0); Sodium 133 mmol/L (137-145)
[2022-08-01 13:38] LABS: Appearance Urine Slightly Cloudy (Clear); Bilirubin Urine 1+ (Negative); Blood Urine 3+ (Negative); Color Urine Yellow (Yellow); Glucose Urine UA 2+ mg/dL (Negative); Ketones Urine 4+ mg/dL (Negative); Leukocyte Esterase Ur Negative LEU/UL (Negative); Mucus Urine Rare /lpf; Nitrate Urine Negative (Negative); Protein Urine 1+ mg/dL (Negative); RBC Urine >75 /hpf (0-2); Specific Grav Ur >= 1.030 (1.001-1.035); Squamous Epithelial Cell Urine Rare /hpf (Few); Urobilinogen Urine 0.2 mg/dL (<2.0); WBC Urine 0-3 /hpf; pH Urine 5.5 (5.0-9.0)
[2022-08-01 13:54] LABS: Add Urine Microscopic? YES
--- NOTE | 2022-08-01 14:21 | ED.NAVMDI ---
HPI - Nausea/Vomiting/Diarrhea General Chief complaint: Nausea/Vomiting/Diarrhea Stated complaint: vomiting x24 hours Time Seen by Provider: 08/01/22 11:44 History of Present Illness HPI Narrative: Patient is a 47-year-old female who presents ER with vomiting and diarrhea for 24 hours. Reports 16 episodes of loose stools. Frequent emesis. Unable to keep down medications. No fevers or chills or sweats. Has some abdominal cramping. She was recently admitted to the hospital for an [place] and received a stent. She was also started on diabetic medication. No chest pain or chest pressure. No difficulty breathing. Related Data Allergies Allergy/AdvReac Type Severity Reaction Status Date / Time No Known Allergies Allergy Verified 08/01/22 11:56 Review of Systems Review of Systems: All systems reviewed & are unremarkable except as noted in HPI and below Constitutional: Constitutional: Denies chills, Reports fatigue and Denies fever(s) ENT: Denies nasal congestion and Denies sore throat Cardiovascular: Cardiovascular: Denies chest pain, Denies rapid heart rate and Denies radiating jaw, neck or arm pain Respiratory: Respiratory: Denies cough and Denies dyspnea Gastrointestinal: Gastrointestinal: Denies abdominal pain, Reports nausea and Reports vomiting Genitourinary: Genitourinary: Denies nocturia and Denies dysuria Comments: Currently on her period [facility] Past Medical History Medical History (Updated 08/01/22 @ 18:19 by Edwin Myers MD) Anxiety Anxiety Depressive disorder Diabetes mellitus Diet-controlled diabetes mellitus History of migraine Hyperlipidemia Non-ST elevation myocardial infarction (NSTEMI) Type 2 diabetes mellitus without complications Surgical History Surgical History (Updated 08/01/22 @ 18:17 by Edwin Myers MD) History of percutaneous coronary intervention Status post excision of lipoma Family History Family History Father Hypertension Family history of elevated blood lipids Family history of diabetes mellitus in first degree relative Family history of coronary artery disease Grandparent Hypertension Family history of elevated blood lipids Diabetes mellitus Mother Hypertension Family history of elevated blood lipids Family history of diabetes mellitus in first degree relative Social History Social History Social History: Surrogate medical decision maker: Kaylen Isidro, mother. Code status: Full code. Smoking status: Never smoker Second hand tobacco smoke exposure: No Alcohol intake: former Drinks per week: 0 Alcohol use details: Social alcohol use in moderation. Substance use: never Substance use type: does not use Lack of Transportation: No Lack of Food: Never True Current Housing: I Have Housing Concerned About Future Housing: No Difficulty Paying Gas/Electric Bills: No Difficulty Paying for Meds: No Currently Unemployed: No Education: Associate Degree Difficulty w/ Childcare or Family Care: No Living arrangements: with family Additional living arrangements comments: Lives in [place] with son, daughter, and granddaughter. 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 Spiritual care concerns: No Exam Narrative: GENERAL: Fatigued-appearing, well-nourished, and in no acute distress. HEAD: Normocephalic, atraumatic. ENT: Mucous membranes moist. CHEST: Clear to auscultation. No respiratory distress. HEART: Regular rate and rhythm. Normal peripheral pulses. ABDOMEN: Soft, nontender, nondistended. EXTREMITIES: Normal range of motion. No edema. SKIN: Warm, dry, no rash. NEURO: Alert and oriented x3. PSYCH: Normal mood and affect. Course Course Emergency Course: Patient still with serious nausea after treatment. Patient with large ketones in her urine. Concern patient is going be unab
[2022-08-01 17:20] VITALS: BMI 32.2
--- NOTE | 2022-08-01 17:20 | ADMGEN ---
This patient, Lori Horvath, was admitted to IMU Room 205-01. Patient/family oriented to hospital policies and general routines including ID bracelet, bed and alarms, visiting hours, pain management, procedures, bathroom and other care routines, personal items, smoking policy, room service/diet, and visiting hours. Information on how to activate the Rapid Response Team has been discussed. Patient/Family are encouraged to report perceived risks to care and to ask questions if they do not understand what they are told or what they should do.
[2022-08-01 17:26] VITALS: BMI 32.2
[2022-08-01 17:30] VITALS: BP 121/62; PULSE 87; RESP 16; TEMP 36.1; O2SAT 100
--- NOTE | 2022-08-01 18:15 | PM.IMHP ---
H&P: HPI History of Present Illness Date/Time: 08/01/22 18:15 Chief Complaint: Nausea, vomiting, diarrhea. Narrative: This is a very pleasant 47-year-old female with coronary artery disease with recent non STEMI on 07/26/2022 status post PCI with drug-eluting stent to the mid left circumflex and insulin-dependent diabetes with a recent hemoglobin A1c of 10.5% who presented to the emergency department for evaluation of nausea, vomiting, and diarrhea. Patient provides the following history. She was discharged home on 07/30/2022 and she was feeling well at that time. The following day however she developed diarrhea and she reports having upwards of 16 loose stools in the last 24 hours. She also endorses ongoing nausea, mild abdominal cramping, and several episodes of emesis. She was started on metformin during her stay but reports that she tolerated it just fine while in the hospital. She denies sick contacts and no one in her household has had similar symptoms. She has not been on any antibiotics recently. She has not noticed any blood in the stool or emesis. She came in today as she was worried because she could not hold down her medications. Vital signs were stable on arrival to the ED. Pertinent labs include a WBC count of 9.2, sodium 133, potassium 4.1, carbon dioxide 19, anion gap 11, BUN 7, creatinine 0.50, glucose 115, AST 83, ALT 70, alkaline phosphatase 159. Urine was concentrated with 2+ glucose and 4+ ketones. Blood was noted in the urine as well though she is currently on her menstrual cycle. It was felt that her ketonuria was due to profound dehydration and less likely DKA and she was aggressively hydrated. She is being admitted overnight for close monitoring. At the time my evaluation she is feeling better and has been able to hold down clear liquids. She denies fever, chills, sweats, current abdominal pain in epigastric pain, melena, hematochezia, hematemesis, bloating, belching, chest pain, and shortness of breath. Review of Systems Review of Systems: Twelve systems were reviewed. She has been taking metformin, Jardiance, and glipizide and she reports that her glucose has been below 200. No blurry vision, polydipsia, or polyuria. Except as documented, all other systems were reviewed and are negative. [facility] Past Medical History Medical History (Updated 08/01/22 @ 22:10 by Missy Pena PA-C) Anxiety Coronary artery disease History of migraine Hyperlipidemia Non-ST elevation myocardial infarction (NSTEMI) (06/2022) Type 2 diabetes mellitus Surgical History Surgical History (Updated 08/01/22 @ 22:08 by Missy Pena PA-C) History of percutaneous coronary intervention PCI to left circumflex. Status post excision of lipoma Family History Family History Father Hypertension Family history of elevated blood lipids Family history of diabetes mellitus in first degree relative Family history of coronary artery disease Grandparent Hypertension Family history of elevated blood lipids Diabetes mellitus Mother Hypertension Family history of elevated blood lipids Family history of diabetes mellitus in first degree relative Social History Social History Social History: Surrogate medical decision maker: Kaylen Isidro, mother. Code status: Full code. Smoking status: Never smoker Second hand tobacco smoke exposure: No Alcohol intake: former Drinks per week: 0 Alcohol use details: Social alcohol use in moderation. Substance use: never Substance use type: does not use Lack of Transportation: No Lack of Food: Never True Current Housing: I Have Housing Concerned About Future Housing: No Difficulty Paying Gas/Electric Bills: No Difficulty Paying for Meds: No Currently Unemployed: No Education: Associate Degree Difficulty w/ Childcare or Family Care: No Living arra
[2022-08-01 19:11] LABS: Anion Gap 8 mmol/L (8-16); Blood Urea Nitrogen 6 mg/dL (7-17); Calcium 8.2 mg/dL (8.4-10.2); Carbon Dioxide 21 mmol/L (22-30); Chloride 108 mmol/L (98-107); Estimated CRCL calculation 138 ml/min; Estimated Glomerular Filt Rate > 60; Glucose 137 mg/dL (65-110); Magnesium 1.8 mg/dL (1.6-2.3); Sodium 137 mmol/L (137-145)
[2022-08-01 19:13] LABS: Beta-Hydroxybutyrate/Acetoacetate 2.15 mmol/L (0.02-0.27)
[2022-08-01 20:00] VITALS: BP 114/59; PULSE 88; PULSE 90; RESP 16; TEMP 36.1; O2SAT 100
[2022-08-01 22:00] VITALS: PULSE 86
[2022-08-01] MEDS: CLOPIDOGREL BISULFATE 75 MG TABLET PO (22:03)
[2022-08-01] MEDS: ASPIRIN 81 MG ENTERIC TABLET PO (22:03)
[2022-08-01] MEDS: ACETAMINOPHEN 325 MG TABLET 650 MG PO (22:07)
[2022-08-01 22:33] LABS: Appearance Urine Clear (Clear); Bacteria Urine None Seen /hpf; Bilirubin Urine Negative (Negative); Blood Urine 3+ (Negative); Color Urine Yellow (Yellow); Glucose Urine UA 3+ mg/dL (Negative); Ketones Urine 4+ mg/dL (Negative); Leukocyte Esterase Ur Negative LEU/UL (NEGATIVE); Nitrate Urine Negative (Negative); Protein Urine 1+ mg/dL (Negative); RBC Urine >100 /hpf (0-2); Specific Grav Ur 1.025 (1.001-1.035); Squamous Epithelial Cell Urine None seen /hpf (Few); WBC Urine 0-5 /hpf (0-3); pH Urine 5.5 (5.0-9.0)
[2022-08-01 22:51] LABS: Add Urine Microscopic? YES
[2022-08-01] MEDS: LACTATED RINGERS 1,000 ML 100 ML IV CONT (23:42)
[2022-08-02] VITALS (10 sets, daily range): BP systolic 90–118; BP diastolic 45–70; PULSE 71–102; RESP 12–16; TEMP 36.2–36.8; O2SAT 99–100
[2022-08-02 04:52] LABS: Hematocrit 31.8 % (37.0-47.0); Hemoglobin 10.4 g/dL (12.0-15.0); Mean Corpuscular HGB Conc 32.7 g/dl (32-36); Mean Corpuscular Hemoglobin 28.6 pg (26-34); Mean Corpuscular Volume 87.4 fl (80-100); Mean Platelet Volume 11.1 fl (7.4-10.4); Platelet Count Result 216 k/mm3 (150-375); Red Blood Count 3.64 M/mm3 (4.2-5.4); Red Cell Distribution Width 13.4 % (11.5-14.5); White Blood Count 5.2 K/mm3 (4.5-10.0)
[2022-08-02 05:03] LABS: Alanine Aminotransferase 55 U/L (6-35); Albumin Level 3.2 g/dL (3.5-5.1); Alkaline Phosphatase 107 U/L (38-126); Anion Gap 2 mmol/L (8-16); Aspartate Amino Transferase 55 U/L (14-36); Bilirubin,Total 0.6 mg/dL (0.2-1.3); Blood Urea Nitrogen 5 mg/dL (7-17); Calcium 8.1 mg/dL (8.4-10.2); Carbon Dioxide 24 mmol/L (22-30); Chloride 111 mmol/L (98-107); Estimated CRCL calculation 138 ml/min; Estimated Glomerular Filt Rate > 60; Glucose 131 mg/dL (65-110); Lipase 376 U/L (23-300); Magnesium 1.8 mg/dL (1.6-2.3); Potassium 3.8 mmol/L (3.4-5.0); Sodium 137 mmol/L (137-145)
[2022-08-02 06:21] LABS: Hepatitis B Surface Antigen Negative (Negative)
[2022-08-02 06:27] LABS: HAV RESULT Negative (Negative); Hepatitis B Core IgM Result Negative (Negative)
[2022-08-02 06:39] LABS: Hepatitis C Virus Antibody Negative (Negative)
[2022-08-02 07:29] LABS: Glucose Point of Care 154 mg/dl (65-105)
--- NOTE | 2022-08-02 09:19 | PC.NURSE ---
[facility] flyer was given to patient in admission folder.
[2022-08-02] MEDS: METOPROLOL SUCCINATE EXT REL 50 MG TABCR PO (09:51)
[2022-08-02] MEDS: ATORVASTATIN 40 MG TABLET 80 MG PO (09:51)
[2022-08-02] MEDS: PANTOPRAZOLE SODIUM IV 40 MG VIAL IV PUSH (09:51)
[2022-08-02] MEDS: ASPIRIN 81 MG ENTERIC TABLET PO (09:52)
[2022-08-02] MEDS: ISOSORBIDE MONONITRATE 30 MG TAB.ER.24H PO (09:52)
[2022-08-02] MEDS: CLOPIDOGREL BISULFATE 75 MG TABLET PO (09:52)
[2022-08-02] MEDS: EMPAGLIFLOZIN 10 MG TABLET PO (09:52)
[2022-08-02 11:50] LABS: Glucose Point of Care 214 mg/dl (65-105)
--- NOTE | 2022-08-02 12:01 | PM.DS ---
DS: Admitting Diagnosis Discharge Date 08/02/2022 Admitting Diagnosis Nausea or vomiting DS: Discharge Diagnosis Discharge Diagnosis (1) Gastroenteritis: Code(s): K52.9 - Noninfective gastroenteritis and colitis, unspecified Status: Acute (2) Dehydration: Code(s): E86.0 - Dehydration Status: Acute (3) Transaminitis: Code(s): R74.01 - Elevation of levels of liver transaminase levels Status: Acute (4) Ketonuria: Code(s): R82.4 - Acetonuria Status: Acute (5) Type 2 diabetes mellitus: Code(s): E11.9 - Type 2 diabetes mellitus without complications Status: Acute (6) Coronary artery disease: Code(s): I25.10 - Atherosclerotic heart disease of [place] coronary artery without angina pectoris Status: Acute Plan The patient presented to the emergency department for evaluation of nausea, vomiting, and diarrhea for the last 24 hours as detailed in HPI. Labs, imaging, EKG, and all reports were personally reviewed. Presumably this is a viral gastroenteritis though she was recently started on metformin which can cause GI irritation. She denies sick contacts. Her abdominal exam is benign thus no indication for CT imaging at this time. She is already improving with supportive care (IV fluids, antiemetics, PPI) and is now tolerating clear liquids. She was unable to take her medications this morning and will receive stat doses of aspirin and clopidogrel given recent coronary stent placement. She is not having any chest pain to suggest reinstatement stenosis. Continue beta-brandon and statin. Her glucose has been in the mid 100s and although she does have 4+ ketonuria and mildly elevated beta hydroxybutyrate, it is likely that this is due to profound dehydration. She does not appear to be acidotic and has no anion gap thus DKA seems less likely. Continue hydration and repeat labs this evening to ensure that there is no change. Continue empagliflozin and resume glipizide once tolerating p.o.. Should her symptoms continue it may be prudent to decrease the dose of her metformin and titrate up over couple of weeks. Initiate sliding scale insulin, Accu-Cheks, and hypoglycemic protocol. Vital signs have been stable. The rest of her home medications will be reviewed and resumed as appropriate. DS: Summary Hospital Course Reason for hospitalization: Nausea, vomiting, diarrhea. Narrative: This is a very pleasant 47-year-old female with coronary artery disease with recent non STEMI on 07/26/2022 status post PCI with drug-eluting stent to the mid left circumflex and insulin-dependent diabetes with a recent hemoglobin A1c of 10.5% who presented to the emergency department for evaluation of nausea, vomiting, and diarrhea. Patient provides the following history. She was discharged home on 07/30/2022 and she was feeling well at that time. The following day however she developed diarrhea and she reports having upwards of 16 loose stools in the last 24 hours. She also endorses ongoing nausea, mild abdominal cramping, and several episodes of emesis. She was started on metformin during her stay but reports that she tolerated it just fine while in the hospital. She denies sick contacts and no one in her household has had similar symptoms. She has not been on any antibiotics recently. She has not noticed any blood in the stool or emesis. She came in today as she was worried because she could not hold down her medications. Vital signs were stable on arrival to the ED. Pertinent labs include a WBC count of 9.2, sodium 133, potassium 4.1, carbon dioxide 19, anion gap 11, BUN 7, creatinine 0.50, glucose 115, AST 83, ALT 70, alkaline phosphatase 159. Urine was concentrated with 2+ glucose and 4+ ketones. Blood was noted in the urine as well though she is currently on her menstrual cycle. It was felt that her ketonuria was due to profound dehydration and less likely DKA and she was aggressively hydrated. She is being admitted o
[2022-08-02] MEDS: INSULIN ASPART (*BKC) 100 UNITS/ML SUB-Q (12:28)
== END 2022-08-02 12:52 | disposition home or self-care (01) ==
LOC: ANHED 12:33 → ANHIMU 18:19
PROVIDERS: Physician Assistant; Admitting Provider Internal Medicine; Emergency Provider Emergency Medicine; Visit Provider Family Medicine
DX: K52.9 Noninfective gastroenteritis and colitis, unspecified (principal); E86.0 Dehydration; R74.01 Elevation of levels of liver transaminase levels; R82.4 Acetonuria; E11.9 Type 2 diabetes mellitus without complications; I25.10 Atherosclerotic heart disease of native coronary artery without angina pectoris; Z95.5 Presence of coronary angioplasty implant and graft; R53.83 Other fatigue; F41.9 Anxiety disorder, unspecified; F32.A Depression, unspecified; G43.909 Migraine, unspecified, not intractable, without status migrainosus; E66.01 Morbid (severe) obesity due to excess calories; Z68.32 Body mass index [BMI] 32.0-32.9, adult; R94.31 Abnormal electrocardiogram [ECG] [EKG]; E78.5 Hyperlipidemia, unspecified; I25.2 Old myocardial infarction; Z86.39 Personal history of other endocrine, nutritional and metabolic disease; Z79.82 Long term (current) use of aspirin; Z79.02 Long term (current) use of antithrombotics/antiplatelets; Z79.84 Long term (current) use of oral hypoglycemic drugs; Z79.899 Other long term (current) drug therapy; Z82.49 Family history of ischemic heart disease and other diseases of the circulatory system; Z83.42 Family history of familial hypercholesterolemia
CPT/HCPCS: 36415; 76705; 80048; 80053; 80074; 81001; 81025; 82010; 82948; 83690; 83735; 85025; 85027; 93005; 96361; 96374; 99285; A9270; C9113; G0378; G0379; J1815; J2405; J7030; J7120

== ENCOUNTER 2022-09-01 15:50 | Emergency (ER) | payer OTHER, SELFPAY ==
[2022-09-01] VITALS (15 sets, daily range): BP systolic 112–128; BP diastolic 57–74; PULSE 71–95; RESP 12–27; TEMP 36.7–37.1; O2SAT 98–100
--- NOTE | ~2022-09-01 | CT_ITS ---
EXAMINATION: CT abdomen pelvis w con DATE: 09/01/2022 20:52 INDICATION: Periumbilical abdominal pain radiating to the back TECHNIQUE: Computed tomography (CT) of the abdomen and pelvis was performed with 100 CC Omnipaque 350 intravenous contrast. Automated exposure control and iterative reconstruction technique were employe d. Exam dose: 937.59 mGy-cm total exam DLP. COMPARISON: 04/11/2022 CT abdomen pelvis 08/02/2022 Limited abdominal ultrasound examination FINDINGS: Minimal bilateral lower lobe dependent atelectasis. The lung bases are otherwise clear of i nfiltrate or consolidation. Normal heart size. Coronary artery atherosclerosis. No pericardial or pleural effusion. Small sliding hiatal hernia. The liver, gallbladder, bile ducts, pancreas and pancreatic duct as well as the spleen appear normal. Normal adrenal glands. No renal mass lesion or urinary tract calculus or hydroureteronephrosis. Bilateral ovarian cysts, measuring up to approximately 3.4 cm on the left, 2.5 cm on the right. Bethanie l appearance of the uterus and urinary bladder. Normal caliber and atherosclerotic calcification of the abdominal aorta and iliac arteries. No intrap eritoneal or retroperitoneal or pelvic mass lesion or adenopathy or ascites is noted otherwise. Normal appendix. No bowel obstruction, bowel wall thickening, pneumatosis or intraperitoneal free air. Very slight fat-containing umbilical hernia. Included skeletal structures are unremarkable. IMPRESSION: Bilateral ovarian cysts Normal appendix Small sliding hiatal hernia Reviewed, dictated and finalized at Location [facility]. Reviewed, dictated and finalized at location A.
--- NOTE | 2022-09-01 16:20 | ECG_ITS ---
Measurements Intervals Nelson Rate: 89 P: 30 OR: 134 QRS: -44 QRSD: 98 T: 95 QT: 375 QTc: 457 Interpretive Statements SINUS RHYTHM MARKED LEFT AXIS DEVIATION [QRS AXIS < -30] POOR R-WAVE PROGRESSION ABNORMAL ECG COMPARED TO ECG 08/01/2022 10:12:40 NO DIFFERENCE Electronically Signed On 09-02-2022 7:45:09 CDT by Toby Johns M.D.
[2022-09-01 16:43] LABS: Basophils Percent Auto 0.5 % (0.2-1.2); Eosinophils Absolute Auto 0.1 K/mm3 (0-0.3); Eosinophils Percent Auto 2.2 % (0-4.4); Hematocrit 40.8 % (37.0-47.0); Hemoglobin 13.3 g/dL (12.0-15.0); Immature Granulocyte Absolute 0.02 K/mm3 (0.00-0.031); Immature Granulocyte Percent A 0.4 % (0-0.5); Lymphocytes Absolute Auto 1.82 K/mm3 (0.9-3.2); Lymphocytes Percent Auto 33.3 % (18.3-44.2); Mean Corpuscular HGB Conc 32.6 g/dl (32-36); Mean Corpuscular Hemoglobin 28.5 pg (26-34); Mean Corpuscular Volume 87.4 fl (80-100); Mean Platelet Volume 10.6 fl (7.4-10.4); Monocytes Absolute Auto 0.4 K/mm3 (0.1-0.6); Monocytes Percent Auto 7.7 % (2.6-8.5); Neutrophils Absolute Auto 3.1 K/mm3 (1.3-6.7); Neutrophils Percent Auto 55.9 % (45.5-73.1); Platelet Count Result 215 k/mm3 (150-375); Red Blood Count 4.67 M/mm3 (4.2-5.4); Red Cell Distribution Width 14.2 % (11.5-14.5); White Blood Count 5.5 K/mm3 (4.5-10.0)
[2022-09-01 16:49] LABS: INR 1.1; Prothrombin Time 13.3 Seconds (11.1-14.7)
[2022-09-01 16:51] LABS: Alanine Aminotransferase 53 U/L (6-35); Albumin Level 4.3 g/dL (3.5-5.1); Alkaline Phosphatase 100 U/L (38-126); Anion Gap 5 mmol/L (8-16); Aspartate Amino Transferase 46 U/L (14-36); Bilirubin,Total 1.9 mg/dL (0.2-1.3); Blood Urea Nitrogen 7 mg/dL (7-17); Calcium 8.7 mg/dL (8.4-10.2); Carbon Dioxide 26 mmol/L (22-30); Chloride 104 mmol/L (98-107); Estimated Glomerular Filt Rate > 60; Glucose 137 mg/dL (65-110); Potassium 4.2 mmol/L (3.4-5.0); Sodium 135 mmol/L (137-145)
[2022-09-01 19:25] LABS: Appearance Urine Clear (Clear); Bacteria Urine None Seen /hpf; Bilirubin Urine Negative (Negative); Blood Urine 3+ (Negative); Color Urine Yellow (Yellow); Glucose Urine UA 3+ mg/dL (Negative); Ketones Urine Negative (Negative); Leukocyte Esterase Ur Negative LEU/UL (Negative); Need Manual Microscopic Reviewed; Nitrate Urine Negative (Negative); Non Pathogenic Casts 0-2; Protein Urine Negative (Negative); RBC Urine 21-50 /hpf (0-2); Specific Grav Ur 1.018 (1.001-1.035); Squamous Epithelial Cell Urine None seen /hpf (Few); Urobilinogen Urine 0.2 mg/dL (<2.0); WBC Urine 0-5 /hpf; pH Urine 5.5 (5.0-9.0)
--- NOTE | 2022-09-01 19:43 | ED.GENADULT ---
HPI - General Adult General Chief complaint: Abdominal Pain Stated complaint: abd pain Time Seen by Provider: 09/01/22 19:02 History of Present Illness HPI narrative: Is a 47-year-old female presenting ED with a chief complaint of abdominal pain. The pain started on Monday, is described as a burning pain in the middle of her belly button that radiates to her back, 8/10 intensity and slowly getting worse. She has never experienced pain like this before, is exacerbated by movement there are no alleviating factors. It is associated with nausea but no vomiting. She denies fever, chills, diarrhea, chest pain difficulty breathing or urinary symptoms. Related Data Allergies Allergy/AdvReac Type Severity Reaction Status Date / Time No Known Allergies Allergy Verified 09/01/22 20:51 [facility] Past Medical History Medical History Anxiety Coronary artery disease History of migraine Hyperlipidemia Non-ST elevation myocardial infarction (NSTEMI) (06/2022) Type 2 diabetes mellitus Surgical History Surgical History (Updated 08/01/22 @ 22:08 by Missy Pena PA-C) History of percutaneous coronary intervention PCI to left circumflex. Status post excision of lipoma Family History Family History Father Family history of elevated blood lipids Family history of diabetes mellitus in first degree relative Family history of coronary artery disease Hypertension Cerebrovascular accident Grandparent Family history of elevated blood lipids Diabetes mellitus Hypertension Mother Family history of elevated blood lipids Family history of diabetes mellitus in first degree relative Hypertension Social History Social History Social History: Surrogate medical decision maker: Kaylen Isidro, mother. Code status: Full code. Smoking status: Never smoker Second hand tobacco smoke exposure: No Alcohol intake: former Drinks per week: 0 Alcohol use details: Social alcohol use in moderation. Substance use: never Substance use type: does not use Lack of Transportation: No Lack of Food: Never True Current Housing: I Have Housing Concerned About Future Housing: No Difficulty Paying Gas/Electric Bills: No Difficulty Paying for Meds: No Currently Unemployed: No Education: Associate Degree Difficulty w/ Childcare or Family Care: No Living arrangements: with family Additional living arrangements comments: Lives in [place] with son, daughter, and granddaughter. 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 Spiritual care concerns: No Exam Narrative: APPEARANCE: No apparent distress. Head: atraumatic. EYES: EOMI, NOSE: Atraumatic NECK: Trachea midline RESPIRATORY: No increased rate of breathing CARDIOVASCULAR: RRR, ABDOMINAL: Patient reports mild tenderness around the periumbilica and right and lower left quadrants. No guarding no rebound. No CVA tenderness. MUSCULOSKELETAl: No obvious deformities NEURO: Alert. Moving 4/4 extremities SKIN:: Warm, dry. Normal color PSYCHIATRIC: Normal affect Course Vital Signs Vital signs: Vital Signs Temperature 98.0 F 09/01/22 16:13 Pulse Rate 71 09/01/22 16:13 Respiratory Rate 16 09/01/22 16:13 Blood Pressure 122/62 09/01/22 16:13 Pulse Oximetry 100 09/01/22 16:13 Oxygen Delivery Room Air 09/01/22 16:13 Temperature 98.7 F 09/01/22 19:51 Pulse Rate 83 09/01/22 20:21 Respiratory Rate 25 H 09/01/22 20:21 Blood Pressure 114/64 09/01/22 19:53 Pulse Oximetry 100 09/01/22 20:21 Oxygen Delivery Room Air 09/01/22 16:13 Medical Decision Making MDM Narrative Medical decision making narrative: -Presentation: 47-year-old female presenting with periumbilical pain -DDX includes but is not limited to: Appendicitis, diver
[2022-09-01 19:58] LABS: Add Urine Microscopic? YES
[2022-09-01 20:23] LABS: Influenza A QL RT-PCR Negative (Negative); Influenza B QL RT-PCR Negative (Negative); RSV RNA, RT-PCR Negative (Negative); SARS-CoV-2 RNA PCR Negative
[2022-09-01] MEDS: ONDANSETRON INJ 4 MG/2 ML VIAL IV PUSH (20:52)
[2022-09-01] MEDS: FAMOTIDINE 20 MG/2 ML VIAL IV PUSH (20:52)
[2022-09-01] MEDS: HYDROmorphone HCL INJ (*CRX) 1 MG/ML SYR 0.5 MG IV PUSH (20:53)
[2022-09-01] MEDS: SODIUM CHLORIDE 0.9% IV 2,000 ML 999 ML IV CONT (21:03)
--- NOTE | 2022-09-06 19:52 | PC.NURSE ---
LATE ENTRY This note is being entered to document information to the patient's record. The following information was omitted on [09/06/22], by [SELVIN Landa]. Normal Saline stopped at 2203
== END 2022-09-01 21:40 | disposition home or self-care (01) ==
PROVIDERS: Emergency Medicine; Emergency Provider Emergency Medicine; PCP Emergency Medicine
DX: I25.10 Atherosclerotic heart disease of native coronary artery without angina pectoris (principal); E78.5 Hyperlipidemia, unspecified; I25.2 Old myocardial infarction; E11.9 Type 2 diabetes mellitus without complications; N83.202 Unspecified ovarian cyst, left side; N83.201 Unspecified ovarian cyst, right side; Z79.82 Long term (current) use of aspirin; Z79.84 Long term (current) use of oral hypoglycemic drugs; R94.31 Abnormal electrocardiogram [ECG] [EKG]; K44.9 Diaphragmatic hernia without obstruction or gangrene
CPT/HCPCS: 36415; 74177; 80053; 81001; 81025; 85025; 85610; 87637; 93005; 96361; 96374; 96375; 99284; J1170; J2405; J7030; Q9967

== ENCOUNTER 2022-10-10 13:45 | Outpatient (CLI) | payer OTHER, SELFPAY ==
--- NOTE | ~2022-10-10 | US_ITS ---
EXAMINATION: US pelvic complete w TV DATE: 10/10/2022 14:42 INDICATION: Bilateral cysts. Comparison:CT dated 09/01/2022 TECHNIQUE: Multiple transabdominal and endovaginal sonographic images of the pelvis performed. FINDINGS: The uterus measures 7.4 x 3.9 x 4.2 cm. The endometrial complex measures 6 mm. There are na bothian cysts. The right ovary measures 5.2 x 3.6 x 2.9 cm and the left ovary measures 2 x 1.4 x 1.2 cm. There are small follicles in each ovary. Normal doppler signal in both ovaries. There is no free fluid in the pelvis. There are right ovarian cysts, largest measuring 4.6 cm. IMPRESSION: 1. Right ovarian cysts, largest measuring 4.6 cm. Reviewed, dictated and finalized at location B.
== END 2022-10-10 13:46 | disposition home or self-care (01) ==
LOC: ANHIMG 13:48
PROVIDERS: PCP Emergency Medicine; Visit Provider Obstetrics & Gynecology Gynecology
DX: N83.201 Unspecified ovarian cyst, right side (principal); N83.202 Unspecified ovarian cyst, left side
CPT/HCPCS: 76830; 76856

== ENCOUNTER 2022-10-12 16:20 | Emergency (ER) | payer OTHER, SELFPAY ==
[2022-10-12 16:21] VITALS: BP 139/87; PULSE 101; RESP 20; TEMP 36.6; O2SAT 99
[2022-10-12 16:36] LABS: Basophils Percent Auto 0.6 % (0.2-1.2); Eosinophils Percent Auto 0.5 % (0-4.4); Hematocrit 44.4 % (37.0-47.0); Hemoglobin 14.7 g/dL (12.0-15.0); Immature Granulocyte Absolute 0.03 K/mm3 (0.00-0.031); Immature Granulocyte Percent A 0.5 % (0-0.5); Lymphocytes Absolute Auto 1.04 K/mm3 (0.9-3.2); Lymphocytes Percent Auto 16.7 % (18.3-44.2); Mean Corpuscular HGB Conc 33.1 g/dl (32-36); Mean Corpuscular Hemoglobin 28.9 pg (26-34); Mean Corpuscular Volume 87.2 fl (80-100); Monocytes Absolute Auto 0.4 K/mm3 (0.1-0.6); Monocytes Percent Auto 6.6 % (2.6-8.5); Neutrophils Absolute Auto 4.7 K/mm3 (1.3-6.7); Neutrophils Percent Auto 75.1 % (45.5-73.1); Platelet Count Result 207 k/mm3 (150-375); Red Blood Count 5.09 M/mm3 (4.2-5.4); Red Cell Distribution Width 13.2 % (11.5-14.5); White Blood Count 6.2 K/mm3 (4.5-10.0)
[2022-10-12 16:45] LABS: Alanine Aminotransferase 39 U/L (6-35); Albumin Level 4.5 g/dL (3.5-5.1); Alkaline Phosphatase 86 U/L (38-126); Anion Gap 8 mmol/L (8-16); Aspartate Amino Transferase 29 U/L (14-36); Bilirubin,Total 1.2 mg/dL (0.2-1.3); Blood Urea Nitrogen 14 mg/dL (7-17); Carbon Dioxide 28 mmol/L (22-30); Chloride 102 mmol/L (98-107); Estimated CRCL calculation 112 ml/min; Estimated Glomerular Filt Rate > 60; Glucose 151 mg/dL (65-110); Lipase 66 U/L (23-300); Potassium 3.9 mmol/L (3.4-5.0); Sodium 138 mmol/L (137-145)
[2022-10-12 17:09] LABS: Appearance Urine Clear (Clear); Bacteria Urine Rare /hpf; Bilirubin Urine Negative (Negative); Blood Urine Negative (Negative); Color Urine Yellow (Yellow); Glucose Urine UA 3+ mg/dL (Negative); Ketones Urine 3+ mg/dL (Negative); Leukocyte Esterase Ur Negative LEU/UL (Negative); Nitrate Urine Negative (Negative); Non Pathogenic Casts 0-2; Protein Urine Trace mg/dL (Negative); Squamous Epithelial Cell Urine None seen /hpf (Few); WBC Urine 0-5 /hpf; pH Urine 6.5 (5.0-9.0)
[2022-10-12 17:11] LABS: Add Urine Microscopic? YES; Specific Grav Ur 1.046 (1.001-1.035)
--- NOTE | 2022-10-12 17:21 | ED.NAVMDI ---
HPI - Nausea/Vomiting/Diarrhea General Chief complaint: Nausea/Vomiting/Diarrhea Stated complaint: N/V Time Seen by Provider: 10/12/22 17:05 History of Present Illness HPI Narrative: 47-year-old female with a history of [place] s/p stent placement, diabetes, hyperlipidemia, anxiety reports for evaluation of nausea and vomiting that started today. Patient reports last week her PCP increased her Trulicity dose and after her first injection, she had nausea for the remainder of the week. States she took her second Trulicity dose last night at 5 PM followed by nausea. Reports since this morning she has vomited approximately 10-11 times. States during an episode of vomiting, she had a sharp pain in her neck that lasted approximately 20 seconds and has since resolved without recurrence. She denies abdominal pain, urinary complaints, chest pain or shortness of breath, fever, diarrhea, body aches or chills. She is also endorsing a dull headache in the right frontal lobe behind her eye that has been slow in onset and mild in nature. She denies vision changes, focal numbness or weakness, difficulties walking or talking. States this is not the worst headache of her life. Patient reports she is an appoint with her PCP tomorrow morning at 8:15 AM to discuss the Trulicity dosing. Related Data Allergies Allergy/AdvReac Type Severity Reaction Status Date / Time No Known Allergies Allergy Verified 10/12/22 16:28 Review of Systems Review of Systems: CONSTITUTIONAL: Denies fever, chills EYES: Denies visual changes, redness, or discharge. ENT: Denies rhinorrhea, congestion, sore throat, or otalgia. CARDIOVASCULAR: Denies chest pain, palpitations, or edema. RESPIRATORY: Denies cough or dyspnea. GASTROINTESTINAL: See HPI GENITOURINARY: Denies dysuria or hematuria. SKIN: Denies rash or itching. MUSCULOSKELETAL: See HPI NEUROLOGIC: See HPI PSYCHIATRIC: Denies anxiety or depression. [facility] Past Medical History Medical History Anxiety Coronary artery disease History of migraine Hyperlipidemia Non-ST elevation myocardial infarction (NSTEMI) (06/2022) Type 2 diabetes mellitus Surgical History Surgical History History of percutaneous coronary intervention PCI to left circumflex. Status post excision of lipoma Family History Family History Father Family history of elevated blood lipids Family history of diabetes mellitus in first degree relative Family history of coronary artery disease Hypertension Cerebrovascular accident Grandparent Family history of elevated blood lipids Diabetes mellitus Hypertension Mother Family history of elevated blood lipids Family history of diabetes mellitus in first degree relative Hypertension Social History Social History Social History: Surrogate medical decision maker: Kaylen Andrewes, mother. Code status: Full code. Smoking status: Never smoker Second hand tobacco smoke exposure: No Alcohol intake: former Drinks per week: 0 Alcohol use details: Social alcohol use in moderation. Substance use: never Substance use type: does not use Lack of Transportation: No Lack of Food: Never True Current Housing: I Have Housing Concerned About Future Housing: No Difficulty Paying Gas/Electric Bills: No Difficulty Paying for Meds: No Currently Unemployed: No Education: Associate Degree Difficulty w/ Childcare or Family Care: No Living arrangements: with family Additional living arrangements comments: Lives in [place] with son, daughter, and granddaughter. 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 Spiritual care concerns: No Exam Narrative: GENERAL: Well-appearing, in no acute distress. Patient resting comfo
[2022-10-12] MEDS: ACETAMINOPHEN 500 MG TABLET 1000 MG PO (17:30)
[2022-10-12] MEDS: SODIUM CHLORIDE 0.9% IV 1,000 ML 999 ML IV CONT (17:30)
[2022-10-12] MEDS: ONDANSETRON INJ 4 MG/2 ML VIAL IV PUSH (17:30)
[2022-10-12] MEDS: diphenhydrAMINE HCl INJ 50 MG/ML VIAL 25 MG IV PUSH (17:30)
[2022-10-12] MEDS: PROCHLORPERAZINE EDISYLATE 10 MG/2 ML VIAL IV PUSH (17:31)
[2022-10-12 17:33] VITALS: BP 126/79; PULSE 87; RESP 15; O2SAT 97
== END 2022-10-12 19:04 | disposition home or self-care (01) ==
PROVIDERS: Emergency Medicine; Emergency Provider Physician Assistant; PCP Emergency Medicine
DX: M62.838 Other muscle spasm (principal); R11.2 Nausea with vomiting, unspecified; E11.9 Type 2 diabetes mellitus without complications; E78.5 Hyperlipidemia, unspecified; I25.10 Atherosclerotic heart disease of native coronary artery without angina pectoris
CPT/HCPCS: 36415; 80053; 81001; 81025; 83690; 85025; 96361; 96374; 96375; 99284; A9270; J0780; J1200; J2405; J7030

== ENCOUNTER 2022-12-21 14:30 | Outpatient (RCR) | payer OTHER, SELFPAY | END 2023-01-02 10:54 | disposition home or self-care (01) | LOC: ANHDMC 14:30 | PROVIDERS: PCP Emergency Medicine; Visit Provider Emergency Medicine | DX: E11.65 Type 2 diabetes mellitus with hyperglycemia (principal); Z71.89 Other specified counseling | CPT/HCPCS: G0108; G0109 ==

== ENCOUNTER 2022-12-22 16:30 | Outpatient (RCR) | payer OTHER, SELFPAY | END 2022-12-22 16:56 | disposition home or self-care (01) | LOC: ANHCPREHAB 16:30 | PROVIDERS: PCP Emergency Medicine; Visit Provider Internal Medicine | DX: Z95.5 Presence of coronary angioplasty implant and graft (principal) | CPT/HCPCS: 93798 ==

== ENCOUNTER 2023-05-12 15:26 | Outpatient (CLI) | payer OTHER, SELFPAY ==
--- NOTE | ~2023-05-12 | XR_ITS ---
EXAMINATION: XR chest 2V DATE: 05/12/2023 15:56 INDICATION: Chest pain across the back, cough and fevers TECHNIQUE: PA and lateral views of the chest were obtained. COMPARISON: Chest radiograph dated 07/29/2022 FINDINGS: Mild opacities in the left midlung zone. Right lung is clear. No pulmonary edema, pleural effusion or pneumothorax. The cardiomediastinal silhouette is normal. Visualized bones and soft tissues are unre markable. IMPRESSION: 1. Mild opacities in the left midlung zone suspicious for pneumonia. Reviewed, dictated and finalized at location A. E NAILER
== END 2023-05-12 15:27 | disposition home or self-care (01) ==
PROVIDERS: PCP Emergency Medicine; Visit Provider Internal Medicine
DX: R07.9 Chest pain, unspecified (principal); R91.8 Other nonspecific abnormal finding of lung field
CPT/HCPCS: 71046

== ENCOUNTER 2023-05-23 14:56 | Outpatient (CLI) | payer OTHER, SELFPAY ==
--- NOTE | ~2023-05-23 | XR_ITS ---
EXAMINATION: XR chest 2V DATE: 05/23/2023 15:37 INDICATION: Pneumonia. TECHNIQUE: Frontal and lateral views of the chest were obtained. COMPARISON: Chest 2 views 05/12/2023 FINDINGS: There is no pneumonia, pleural effusion, or pneumothorax. The heart size is normal. IMPRESSION: 1. No acute cardiopulmonary disease. Reviewed, dictated and finalized at location [facility]
[2023-05-23 16:25] LABS: Influenza A QL RT-PCR Negative (Negative); Influenza B QL RT-PCR Negative (Negative); RSV RNA, RT-PCR Negative (Negative); SARS-CoV-2 RNA PCR Negative (Negative)
== END 2023-05-23 14:57 | disposition home or self-care (01) ==
PROVIDERS: PCP Emergency Medicine; Visit Provider Emergency Medicine
DX: B34.9 Viral infection, unspecified (principal); J18.9 Pneumonia, unspecified organism; Z20.822 Contact with and (suspected) exposure to COVID-19
CPT/HCPCS: 71046; 87637

== ENCOUNTER 2023-09-22 11:28 | Emergency (ER) | payer OTHER, SELFPAY ==
[2023-09-22 11:33] VITALS: BP 139/76; PULSE 93; RESP 18; TEMP 36.6; O2SAT 99
[2023-09-22 11:48] LABS: Glucose Point of Care 204 mg/dl (65-105)
[2023-09-22 11:54] LABS: Basophils Percent Auto 0.7 % (0.2-1.2); Eosinophils Absolute Auto 0.1 K/mm3 (0-0.3); Hematocrit 46.5 % (37.0-47.0); Hemoglobin 15.3 g/dL (12.0-15.0); Immature Granulocyte Absolute 0.01 K/mm3 (0.00-0.031); Immature Granulocyte Percent A 0.2 % (0-0.5); Lymphocytes Absolute Auto 1.93 K/mm3 (0.9-3.2); Lymphocytes Percent Auto 35.1 % (18.3-44.2); Mean Corpuscular HGB Conc 32.9 g/dl (32-36); Mean Corpuscular Hemoglobin 29.4 pg (26-34); Mean Corpuscular Volume 89.3 fl (80-100); Mean Platelet Volume 11.3 fl (7.4-10.4); Monocytes Absolute Auto 0.4 K/mm3 (0.1-0.6); Monocytes Percent Auto 6.9 % (2.6-8.5); Neutrophils Percent Auto 55.1 % (45.5-73.1); Platelet Count Result 184 k/mm3 (150-375); Red Blood Count 5.21 M/mm3 (4.2-5.4); Red Cell Distribution Width 13.2 % (11.5-14.5); White Blood Count 5.5 K/mm3 (4.5-10.0)
[2023-09-22] MEDS: diphenhydrAMINE HCl INJ 50 MG/ML VIAL 25 MG IV PUSH (12:24)
[2023-09-22] MEDS: METOCLOPRAMIDE HCL INJ 10 MG/2 ML VIAL IV PUSH (12:24)
[2023-09-22] MEDS: dexAMETHasone SOD PHOS INJ 10 MG/ML 1 ML VIAL IV PUSH (12:24)
[2023-09-22] MEDS: ACETAMINOPHEN 500 MG TABLET 1000 MG PO (12:24)
--- NOTE | 2023-09-22 12:33 | ED.HA ---
HPI - Headache General Chief Complaint: Headache Stated Complaint: migraine Time Seen by Provider: 09/22/23 11:48 Source: patient and old records reviewed Mode of arrival: ambulatory Limitations: no limitations History of Present Illness HPI Narrative: Patient is a 48-year-old female, with past medical history of CAD with cardiac stenting, diabetes, who presents to the ED with report of migraine headache. Patient reports occasional history of migraines, states her last migraine was last September at which point she was also seen in the ED here, improved with migraine cocktail. States she developed current headache last Monday, but pain became worse around Monday. Feels similar to previous migraines. Reports pain is frontal, extending to the back of her head. Saw her primary care doctor this week and was prescribed sumatriptan, promethazine. Has been taking these medications as prescribed with intermittent slight improvement. Reports nausea, photophobia, phonophobia. Denies dizziness, lightheadedness, syncope, focal weakness or numbness, vision changes, fevers. Related Data Home Medications Medication Instructions Recorded Confirmed dulaglutide 1.5 mg/0.5 mL 1.5 mg subcut 09/22/23 subcutaneous pen injector ([facility]) promethazine 25 mg tablet 25 mg PO 09/22/23 rosuvastatin 40 mg tablet 40 mg PO 09/22/23 sumatriptan succinate 100 mg tablet mg PO 09/22/23 tramadol 50 mg tablet mg 09/22/23 Allergies Allergy/AdvReac Type Severity Reaction Status Date / Time No Known Allergies Allergy Verified 09/22/23 11:29 Review of Systems Review of Systems: CONSTITUTIONAL: Denies fever, chills, or sweats. ENT: Reports photophobia, phonophobia. Denies vision changes, rhinorrhea, congestion, sore throat. GASTROINTESTINAL: See HPI. MUSCULOSKELETAL: Denies back pain, extremity pain, myalgia. NEUROLOGIC: See HPI. All systems reviewed & are unremarkable except as noted in HPI and below PMFSH Past Medical History Medical History Anxiety Coronary artery disease History of migraine Hyperlipidemia Non-ST elevation myocardial infarction (NSTEMI) (06/2022) Type 2 diabetes mellitus Surgical History Surgical History History of percutaneous coronary intervention PCI to left circumflex. Status post excision of lipoma Family History Family History Father Family history of elevated blood lipids Family history of diabetes mellitus in first degree relative Family history of coronary artery disease Hypertension Cerebrovascular accident Grandparent Family history of elevated blood lipids Diabetes mellitus Hypertension Mother Family history of elevated blood lipids Family history of diabetes mellitus in first degree relative Hypertension Social History Social History Social History: Surrogate medical decision maker: Kaylen Isidro, mother. Code status: Full code. Smoking status: Never smoker Second hand tobacco smoke exposure: No Alcohol intake: former Drinks per week: 0 Alcohol use details: Social alcohol use in moderation. Substance use: never Substance use type: does not use Lack of Transportation: No Lack of Food: Never True Current Housing: I Have Housing Concerned About Future Housing: No Difficulty Paying Gas/Electric Bills: No Difficulty Paying for Meds: No Currently Unemployed: No Education: Associate Degree Difficulty w/ Childcare or Family Care: No Living arrangements: with family Additional living arrangements comments: Lives in [place] with son, daughter, and granddaughter. 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 Spiritual care concerns: No Exam Narrative: GENERAL: Well appearin
[2023-09-22 12:35] LABS: Alanine Aminotransferase 36 U/L (6-35); Albumin Level 4.3 g/dL (3.5-5.1); Alkaline Phosphatase 73 U/L (38-126); Anion Gap 5 mmol/L (4-12); Aspartate Amino Transferase 34 U/L (14-36); Bilirubin,Total 0.9 mg/dL (0.2-1.3); Blood Urea Nitrogen 13 mg/dL (7-17); Calcium 9.1 mg/dL (8.4-10.2); Carbon Dioxide 27 mmol/L (22-30); Chloride 106 mmol/L (98-107); Estimated CRCL calculation 98 ml/min; Estimated Glomerular Filt Rate > 60; Glucose 257 mg/dL (65-110); Sodium 138 mmol/L (137-145)
[2023-09-22] MEDS: SODIUM CHLORIDE 0.9% IV 1,000 ML 999 ML IV CONT (12:58)
[2023-09-22 14:32] VITALS: BP 97/76; PULSE 80; RESP 18; O2SAT 99
== END 2023-09-22 14:33 | disposition home or self-care (01) ==
PROVIDERS: Student in an Organized Health Care Education/Training Program; Emergency Provider Physician Assistant; PCP Emergency Medicine
DX: G43.909 Migraine, unspecified, not intractable, without status migrainosus (principal); I25.10 Atherosclerotic heart disease of native coronary artery without angina pectoris; E78.5 Hyperlipidemia, unspecified; E11.9 Type 2 diabetes mellitus without complications
CPT/HCPCS: 36415; 80053; 82948; 85025; 96361; 96374; 96375; 99284; A9270; J1100; J1200; J2765; J7030

== ENCOUNTER 2024-08-09 17:29 | Emergency (ER) | payer OTHER, SELFPAY ==
--- NOTE | ~2024-08-09 | XR_ITS ---
XR chest 2V Ordering provider: Koko Trejo MD History: 49 years Female with . left side chest pain x 1 day . Comparison: None. FINDINGS: MEDIASTINUM: The cardiac silhouette is not enlarged. LUNGS: No infiltrates, effusions or pneumothorax. OTHER: No free air under the diaphragm. IMPRESSION: No acute cardiopulmonary pathology Reviewed, dictated and finalized at location A.
--- NOTE | 2024-08-09 17:31 | ECG_ITS ---
Test Date: 2024-08-09 17:40:13 Measurements Intervals [place] Rate: 91 P: 34 CO: 125 QRS: -33 QRSD: 105 T: 26 QT: 354 QTc: 436 Interpretive Statements SINUS RHYTHM LEFTWARD AXIS POSSIBLE ANTERIOR MYOCARDIAL INFARCTION , OF INDETERMINATE AGE Electronically Signed On 08-11-2024 13:52:36 CDT by Milo Harrison D.O
--- OUTSIDE RECORDS SUMMARY | 2024-08-09 17:31 | XMS_ITS | Clinical Summary ---
Author Organization [address] Address [address] [place] [id number] Care Team Providers Care Jewel Hole Driller Name Role Phone Samy Ta MD Primary Care Provider Allergies No known active allergies Medications aspirin 81 mg enteric coated tablet 3 Active Jardiance 10 mg tablet Take 1 tablet (10 mg total) by mouth daily 3 Active glipiZIDE XL (GLUCOTROL XL) 2.5 mg 24 hr tablet Take 2 tablets (5 mg total) by mouth 2 (two) times a day 3 Active nitroglycerin (NITROSTAT) 0.[address] TABLET UNDER THE TONGUE EVERY 5 MINUTES FOR CHEST PAIN 3 Active Trulicity 1.5 mg/0.5 mL pen injector ADMINISTER 1.5 MG UNDER THE SKIN EVERY WEEK 3 Active lancets 33 gauge misc 2 (two) times a day 3 Active blood glucose diagnostic (OneTouch Verio test strips) strip 2 (two) times a day 3 Active Crestor 40 mg tablet Take 1 tablet (40 mg total) by mouth daily 4 Active Active Problems Problem Noted Date Diagnosed Date Hyperlipidemia 11/03/2023 NSTEMI (non-ST elevated myocardial infarction) 0 11/04/2022 History of percutaneous coronary intervention Coronary artery disease invo lving sycuan coronary artery of sycuan heart without angina pectoris 11/04/2022 Adiposity 10/12/2013 Overview (09/02/2016): OBESITY NOS Atopic rhinitis 10/12/2013 Overview (09/02/2016): ALLERGIC RHINITIS NOS Type 2 diabetes mellitus 10/12/2013 Overview (09/02/2016): DMII WO CMP UNCNTRLD Benign hypertension 10/12/2013 Overview (09/02/2016): BENIGN HYPERTENSION Immunizations Immunization Administration Dates Next Due Tdap 11/02/2007 Surgical History Surgery Date Site/Laterality Comments CORONARY ANGIOPLASTY Medical History Medical History Date Comments History of heart attack 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 Monthly or less 08/22/2022 Q2: How many drinks containi ng alcohol do you have on a typical day when you are drinking? Patient does not drink Q3: How often do you have si x or more drinks on one occasion? Never 08/22/2022 Comments Unknown Sex and Gender Information Value Date Recorded Sex Assigned at Not on file Legal Sex Female 12:42 AM EXPLOSIVES OPERATOR Gender Identity Not on file Sexual Orientation Not on file Obstetrics History Last Filed Vital Signs Vital Sign Reading Time Taken Comments Blood Pressure 122/70 05/03/2024 2:54 PM EXPLOSIVES OPERATOR Pulse 76 05/03/2024 2:54 PM EXPLOSIVES OPERATOR Temperature 36.7 C (98 F) 04/01/2023 4:17 PM CDT Respiratory Rate 16 04/01/2023 4:17 PM CDT Oxygen Saturation 98% 05/03/2024 2:54 PM EXPLOSIVES OPERATOR Inhaled Oxygen Concentration - - Weight 85.3 kg (188 lb) 05/03/2024 2:54 PM EXPLOSIVES OPERATOR Height 157.5 cm (5' 2 ) 05/03/2024 2:54 PM EXPLOSIVES OPERATOR Body Mass Index 34.39 05/03/2024 2:54 PM EXPLOSIVES OPERATOR Plan of Treatment Health Maintenance Due Date Last Done Comments Albumin Creatinine Ratio, Urine 1975 Breast Cancer Screening-Mammogram 1975 Cervical Cancer Screening 1975 Colon Cancer Screening-Colonoscopy 1975 Depression Screening 1975 Hemoglobin A1C 1975 Hepatitis C Screening 1975 eGFR 1975 Dilated Eye Exam 1975 Foot Exam 1975 Hepatitis B Screening 1993 Regular Well Visit/Exam 18-64 1993 Pneumococcal vaccine <65 (1 of 2 - PCV) 1994 DTaP/Tdap/Td Vaccine (2 - Td or Tdap) 11/01/201710/2007 Influenza Vaccine (#1) 2024 Lipid Panel 05/03/2025 05/03/2024, 0611/2023, 08/22/2022 Procedures Procedure Name Priority Date/Time Associated Diagnosis Comments POCT LIPID PANEL Routine 05/03/2024 3:00 PM EXPLOSIVES OPERATOR Coronary artery disease involving sycuan coronary artery of sycuan heart without angina pectoris Mixed diabetic hyperlipidemia associated with type 2 diabetes mellitus (HCC) from Last 3 Months or Most Recently Relevant to Health Maintenance Results * POCT lipid panel (05/03/2024 3:00 PM EXPLOSIVES OPERATOR) Cholesterol, POC 254 mg/dL HDL, POC 58 mg/dL Triglycerides, POC 194 mg/dL LDL Cholesterol POC 158 mg/dL Chol/HDL Ratio, POC 2.7 Non-HDL Cholesterol, POC 196 mg/dL Cholesterol Total, POC 254 mg/dL Capillary blood 05/03/2024 3 :00 PM EXPLOSIVES OPERATOR Renae Comer NP POINT OF CARE TEST ORDERA BLES Final Result from Last 3 Months or Most Recently Relevant to Health Maintenance Insurance [facility] Care Teams Jewel Hole Driller Relationship Specialty Start Date End Date Samy Ta MD [address] [place] [address] PCP - General Family Medicine 08/22/22
--- OUTSIDE RECORDS SUMMARY | 2024-08-09 17:31 | XMS_ITS | Continuity of Care Document ---
Author Organization [facility] Address [address] [address] [place] [address] Phone Care Team Providers Care Sharepoint Application Architect Name Role Phone Samy Ta MD Unavailable Unavailable Allergies, Adverse Reactions, Alerts Substance Reaction Status Criticality No Known Allergies Active No Inform ation Medications Medication Instructions Dosage Effective Dates (start - stop) Status Comments Wellbutrin XL 150 mg 24 hr tablet, extended release take 1 tablet by oral route every morning 150 MG - Active Crestor 40 mg tablet take 1 tablet by or al route every day 40 MG - Active Jardiance 10 mg tablet take 1 tablet by oral route every day in the morning 10 MG - Active Trulicity 1.5 mg/0.5 mL subcutaneous pen injector inject (1.5MG) by subcutaneous route every week 1.5 MG - Active glipizide ER 10 mg tablet, extended release 24 hr take 1 tablet by oral route every day with breakfast 10 MG - Active OneTouch Delica Plus Lancet 33 gauge test BG BID - Active OneTouch Verio test strips use BID - Active isosorbide mononitrate ER 30 mg tablet,extended release 24 hr take 1 tablet by oral route every day in the morning 30 MG - Active Plavix 75 mg tablet take 1 tablet by ora l route every day 75 MG - Active Procedures Procedure Date OFFICE/OUTPATIENT VISIT, EST OFFICE/OUTPATIENT VISIT, EST OFFICE/OUTPATIENT VISIT, EST OFFICE/OUTPATIENT VISIT, EST OFFICE/OUTPATIENT VISIT, EST OFFICE/OUTPATIENT VISIT, EST OFFICE/OUTPATIENT VISIT, EST OFFICE/OUTPATIENT VISIT, EST OFFICE/OUTPATIENT VISIT, EST OFFICE/OUTPATIENT VISIT, EST OFFICE/OUTPATIENT VISIT, EST OFFICE/OUTPATIENT VISIT, EST OFFICE/OUTPATIENT VISIT, EST OFFICE/OUTPATIENT VISIT, EST PREV VISIT, NEW, AGE 40-64 Advance Directives Directive Yes / No Effective Date File Name No Information Encounters Encounter Description Practice Location Reason(s) For Visit Diagnoses Date Provider Providers Copied on Encounter [facility], [address] [place], [id number], tel:[phone] [facility] No Information 5 Keyon Van [address], [place], [place], [address] , [place]. tel:[phone] OFFICE/OUTPA TIENT VISIT, [facility], [address] [place], [address], [place] tel:[phone] [facility] HLP (chief complaint) DM (chief complaint) HCT (chief complaint) anxiety1 (chief complaint) Mixed hyperlipidemiaSecon roney polycythemiaType 2 diabetes mellitus without complicationsGenera lized Anxiety Disorder 5 Keyon Van [address], [place], [place], [address] , [place]. tel:[phone] [facility], [address] [place], [address], [place] tel:[phone] [facility] No Information 4 Keyon Van [address], [address], [place], [place], [address] , [place]. tel:[phone] OFFICE/OUTPA TIENT VISIT, [facility], [address], [place], [place], [address], [place] tel:[phone] [facility] DM (chief complaint) HLP (chief complaint) HCT (chief complaint) migraine1 (chief complaint) Mixed hyperlipidemiaType 2 diabetes mellitus without complicationsSecond yoav polycythemiaCAD of [place] coronary artery without angina pectorisMigraine w/o aura, not intractable, w/o status migrainosus 4 Keyon Pablo. [address], [address], [place], [place], [address] , [place]. tel:[phone] OFFICE/OUTPA TIENT VISIT, [facility], [address], [place], [place], [address], [place] tel:[phone] [facility] migraine1 (chief complaint) Migraine w/o aura, not intractable, w/o status migrainosus 4 Keyon Pablo. [address], [address], [place], [place], [address] , [place]. [phone] OFFICE/OUTPA TIENT VISIT, [facility], [address], [place], [place], [address], [place] tel:[phone] [facility] HLP (chief complaint) DM (chief complaint) weight gain1 (chief complaint) Mixed hyperlipidemiaType 2 diabetes mellitus without complicationsAbnorm al weight gain 4 Keyon Van [address], [address], [place], [place], [address] , [place]. [phone] OFFICE/OUTPA TIENT VISIT, [facility], [address], [place], [place], [address], [place] tel:[phone] [facility] sick (chief complaint) GERD1 (chief complaint) PneumoniaGERD w/o esophagitis 4 Keyon Pablo. [address], [address], [place], [place], [address] , [place]. [phone] OFFICE/OUTPA TIENT VISIT, [facility], [address], [place], [place], [address], [place] tel:[phone] [facility] cough1 (chief complaint) Acute bronchitisViral infection 3 Keyon Pablo. [address], [address], [place], [place], [address] , [place]. tel:[phone] OFFICE/OUTPA TIENT VISIT, [facility], [address], [place], [place], [address], [place] tel:[phone] [facility] pneumonia1 (chief complaint) Pneumonia 3 Keyon Samy. [address], [address], [place], [place], [address] , [place]. tel:[phone] OFFICE/OUTPA TIENT VISIT, [facility], [address], [place], [place], [address], [place] tel:[phone] [facility] sleep apnea1 (chief complaint) DM (chief complaint) HLP (chief complaint) LFT (chief complaint) iron deficiency 1 (chief complaint) Iron deficiencyType 2 diabetes mellitus without complicationsMixed hyperlipidemiaLiver diseaseObstructive Sleep Apnea Hypopnea 3 Keyon Pablo. [address], [address], [place], [place], [address] , [place]. tel:[phone] OFFICE/OUTPA TIENT VISIT, [facility], [address], [place], [place], [address], [place] tel:[phone] [facility] DM (chief complaint) HLP (chief complaint) weight gain1 (chief complaint) heel pain1 (chief complaint) Mixed hyperlipidemiaIron deficiencyType 2 diabetes mellitus without complicationsAbnorm al weight gainFatigueCAD of [place] coronary artery without angina pectorisPain in right foot 3 Keyon Pablo. [address], [place], [place], [address] , [place]. tel:[phone] OFFICE/OUTPA TIENT VISIT, [facility], [address], [place], [place], [address], [place] tel:[phone] [facility] HLP (chief complaint) DM (chief complaint) ferritin1 (chief complaint) fatigue1 (chief complaint) FatigueMixed hyperlipidemiaIron deficiencyType 2 diabetes mellitus without complications 3 Keyon Pablo. [address], [place], [place], [address] , [place]. tel:[phone] OFFICE/OUTPA TIENT VISIT, [facility], [address], [place], [place], [address], [place] tel:[phone] [facility] CAD (chief complaint) HLP (chief complaint) DM (chief complaint) Mixed hyperlipidemiaCAD of [place] coronary artery without angina pectorisType 2 diabetes mellitus without complications 3 Keyon Pablo. [address], [place], [place], [address] , [place]. tel:[phone] OFFICE/OUTPA TIENT VISIT, [facility], [address], [place], [place], [address], [place] tel:[phone] [facility] nausea1 (chief complaint) hematuria1 (chief complaint) Type 2 diabetes mellitus without complicationsNausea w/ vomitingBenign essential microscopic hematuria 3 Keyon Pablo. [address], [place], [place], [address] , [place]. tel:[phone] OFFICE/OUTPA TIENT VISIT, [facility], [address], [place], [place], [address], [place] tel:[phone] [facility] DM (chief complaint) fatigue1 (chief complaint) weight gain1 (chief complaint) Type 2 diabetes mellitus without complicationsAbnorm al weight gainFatigueMixed hyperlipidemia 3 Keyon Pablo. [address], [place], [place], [address] , [place]. tel:[phone] OFFICE/OUTPA TIENT VISIT, [facility], [address], [place], [place], [address], [place] tel:[phone] [facility] CAD (chief complaint) DM (chief complaint) GERD1 (chief complaint) GERD w/o esophagitisType 2 diabetes mellitus without complicationsCAD of [place] coronary artery without angina pectorisMixed hyperlipidemia 3 Keyon Pablo. [address], [place], [place], [address] , [place]. [phone] PREV VISIT, NEW, AGE 40-64 [facility], [address], [place], [place], [address], [place] tel:[phone] [facility] Medicine physical (chief complaint) Encounter for general adult medical examination without abnormal findings 3 Keyon Pablo. [address], [place], [place], [address] , [place]. tel:[phone] Family History Family Member Type Diagnosis Age At Onset Sister Problem Diabetes mellitus Mother Problem Diabetes mellitus Father Problem Diabetes mellitus Father Problem Stroke 68 Payers Payer name Insurance type Covered alliance party ID Authoriza tion(s) No Information Social History Type Description Quantity Date Captured Comments Sex Female Smoking Status No Information Chief Complaint And Reason For Visit No Information Plan Of Treatment Date Type Action Status Referral Ordered: CHEST X-RAY PA/LAT TWO-VIEWS ordered Referral Ordered: Tamika Duran -Podiatric Medicine & Surgery Service Providers : Engine Head Repairer (related to Pain in right foot) ordered Referral Referred To: Tamika Duran [facility]
[place], [place], [phone] Ordered: Referrals: Podiatric Medicine & Surgery Service Providers : Engine Head Repairer. Tamika Duran. Evaluate and treat ordered Referral Ordered: SLEEP STUDY, ATTENDED ordered Referral Ordered: Endocrinology, Diabetes and Metabolism (related to Type 2 diabetes mellitus without complications) ordered Referral Ordered: Referrals: Endocrinology, Diabetes and Metabolism. Evaluate and treat ordered Referral Ordered: Ophthalmology (related to Encounter for general adult medical examination without abnormal findings) ordered Referral Ordered: Referrals: Ophthalmology. Evaluate and treat ordered Appointment Lori Horvath BOOKED History Of Present Illness Encounter Date Complaint History Of Prese nt Illness HLP Pt has HLP. Pt h as not been taking crestor. Pt is noncompliant DM Pt has DM Pt is on trulicity, jardiance, and glipizide. Her A1c is slightly better. Pt denies any polyuria, polydipsia HCT Pt has borderlin e high hct. Her iron is ok anxiety1 Pt has been feel ing anxious and depressed lately. Pt has been having crying spells. Pt denies any suicidal or homicidal thought. 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 DM Pt has DM. Pt dockery s not been taking jardiance and glipizide and trulicity regularly and her glucose and A1c are still high Pt denies any polyuria, polydipsia. HLP Pt has HLP. Pt h a not been have taking crestor. Pt denies any myalgia HCT Pt has mild high HCT .Pt has mld sleep apnea Pt denies any fatigue migraine1 Pt has not had a ny migraine headache since her last visit migraine1 Pt has chronic m igraine since 8 years ago pt denies any head injury Pt denies waking up at night with headache Pt only has migraine 1-2 per year. pt denies any trigger factor. pt has been under a lot of stress lately Pt c/o acute onset of migraine since 3 days ago with throbbing headache behind her eyes and also around scalp and posterior neck area. Pt feels photophobic with nausea as well. Pt denies any vision change ,pt states that she has 7/10 headache Pt been to Er in the past for the migraine and she usually gets a migraine cocktails which helped. HLP Pt has HLP Pt ta kes Crestor and her lipid profile is ok. Pt denies any myalgia. Her TG is mildly high DM Pt has DM. Pt is on glipizide and jardiance but she has not been able to pick remover trulicity for 6 weeks due to pharmacy shortage. her A1c is getting worse. Pt denies any polyuria, polydipsia weight gain1 Pt has been gain ing weight sick Pt c/o persisten t productive cough with yellowish phlegm, midsternal chest pain, mild sob, fatigue for two weeks. Pt recently was treated for pneumonia and her chest x ray did come back normal and she had negative COVID ,influenza and also RSV testing. Pt states that she has not noticed much improvement of her overall symptoms since two weeks ago due to pneumonia. Pt denies any fever GERD1 Pt has been havi ng GERD symptoms during last 3 days Pt has to take some rolaids which did help her GERD pt denies any nausea, vomiting. Pt denies any abd pain. cough1 Pt c/o persisten t productive cough with yellow phlegm for one week Pt just finished levofloxacin x 5 days. Pt c/o wheezing and mild sob. Pt denies any fever Pt c/o anterior sharp chest pain with cough Pt feels fatigue. pt is not vaccinate for COVID Pt has been using albuterol frequently due to sob. Pt denies any chest pain pneumonia1 Pt has been havi ng productive cough with yellow phlegm, mild chest pain, sob, fever as high as 101 since 5 days ago. 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 Pt had chest x ray done which showed left middle lung pneumonia. Pt denies any hemoptysis sleep apnea1 pt has mild slee p apnea with fatigue. Pt does not want to use cpap DM Pt has DM> pt us es trulicity and she takes jardiance, glipizide and her glucose is around 200 and her A1c is 6.1, which continues to improve. Pt denies any neuropathy symptoms HLP Pt has HLP Pt heidi prasad. Her lipid profile is better but still not at goal. Pt denies any myalgia LFT Pt has mildly hi gh LFT Pt denies any abd pain or jaundice. Pt had negative hep panel iron deficiency1 Pt has history of mild iron deficiency, which resolved Pt denies any bleeding DM Pt has DM. Pt ta kes trulicity, jardiance, glipizide and her glucose is around 120s .Pt denies any polyuria, polydipsia. Pt denies any neuropathy. Pt finished DM education class HLP Pt has HLP Pt is not sure if she is taking crestor or still lipitor. Pt denies any myalgia weight gain1 Pt has been gain ing weight. Pt unable to tolerate higher dose of trulicity. Pt has been diet and exercising. heel pain1 Pt stepped wrong 3 months ago and injured her right heel area. Pt co right heel pain especially when she put weight on it x 3 months Pt denies any redness, swelling, warmth Pt denies any acheilus tendon pain or calf pain Pt denies any radiation of pain to plantar surface right foot. Pt denies any numbness or tingling HLP Pt has HLP pt ta kes lipitor 80 mg but her lipid profile is still high. Pt denies any myalgia. Pt states that she usually eats very healthy DM Pt has DM Pt yosi es jardiance. glipizide and also trulicity her glucose and A1c are better. pt denies any polyuria, polydipsia. Pt unable to tolerate higher dose of trulicity ferritin1 Pt has low tammy tin Pt does have heavy period Pt jayden any GI bleeding fatigue1 Pt has chronic f atigue Pt feels foggy brained. Pt denies any snoring Pt wakes up feeling tired CAD Pt has CAD with stent. Pt sees cardiology Pt denies any chest pain Pt takes plavix, metoprolol, Lipitor, isosorbide. Pt denies any chest pain Pt needs medication refilled. HLP Pt has HLP Pt ta kes lipitor Pt denies any myalgia. DM Pt has DM Pt yosi es jardiance and glipizide and trulicity and her glucose is getting better. Pt jayden any neuropathy. She is back down to trulicity 1.5 mg SC weekly and she is tolerating it ok. Pt denies any nausea, vomiting or abd pain or constipation nausea1 Pt started to fe el nauseated with frequent vomiting since starting trulicity 3 mg SC weekly since two weeks ago. pt denies any abd pain Pt denies any diarrhea or blood in stool. Pt went to Er yesterday and she had benign lab work and she was given some zofran which did help. Pt feels mildly nauseated now but she has not vomited since yesterday. Pt has regular BM and her Last BM was this morning Pt tolerating food and liquid ok now. hematuria1 Pt has mild symone turia but she was on her period yesterday. pt denies any urinary symptoms or flank pain DM Pt has DM, pt ta kes glipizide and jardiance and trulicity. her glucose is around 140s. Pt denies any hypoglycemia. fatigue1 Pt has been feel ing chronic fatigue and some dizziness, especially after cardiac rehab Pt states that her bp usually is around 90-100 systolic after cardiac rehab. Pt denies any sob weight gain1 Pt has been gain ing some weight instead of weight loss. Pt states that she does notice appetite suppression with trulicity but she has not lost weight yet GERD1 Pt denies any GE RD Pt still taking protonix , Pt was started on protonix by hospital recently DM Pt has DM Pt yosi es jardiance, glipizide and trulicity Pt states that her glucose is lower around 140s. Pt denies any polyuria, polydipsia pt has been cutting down carb. pt denies any GI symptoms CAD Pt has CAD with stent Pt denies any chest pain pt is on plavix, metoprolol, and lipitor Pt denies any chest pain Pt visited her cardiology and her lipid profile already improving. She is on metoprolol 25 mg now by cardiology instead of 50. physical Pt needs annual physical Pt recently had non ST elevation NV and she saw cardiology and she had one stent placed Pt is on ASA and plavix and lipitor now. Pt also takes metoprolol. Pt denies any sob, Pt also has poorly controlled DM Pt is on metformin, glipizide, jardiance and her glucose is around 150s. Pt did have some diarrhea with metformin. Pt also has high LFT with negative hep panel and ultrasound. Pt denies any chest pain or sob Pt feels ok. Pt has gained 30 pounds during last 3 years. Instructions Date Instruction Additional Infor candis No Information Assessments Type Assessment Date No Information
--- OUTSIDE RECORDS SUMMARY | 2024-08-09 17:31 | XMS_ITS | Continuity of Care Document ---
Author Organization [facility] Address [address] [place] [address] [place] [phone] Phone Care Team Providers Care Coin Purse Assembler Name Role Phone Loki VIKKI Christen Unavailable Unavailable Procedures Procedure Date PT RE-EVALUATION THERAPEUTIC EXERCISES MANUAL THERAPY HOT/COLD PACK THERAPEUTIC EXERCISES MANUAL THERAPY HOT/COLD PACK THERAPEUTIC EXERCISES MANUAL THERAPY HOT/COLD PACK THERAPEUTIC EXERCISES MANUAL THERAPY HOT/COLD PACK THERAPEUTIC EXERCISES MANUAL THERAPY FUNC ACTIVITY HOT/COLD PACK THERAPEUTIC EXERCISES MANUAL THERAPY FUNC ACTIVITY THERAPEUTIC EXERCISES NEUROMUSCULAR RE-ED MANUAL THERAPY THERAPEUTIC EXERCISES NEUROMUSCULAR RE-ED MANUAL THERAPY HOT/COLD PACK THERAPEUTIC EXERCISES MANUAL THERAPY HOT/COLD PACK THERAPEUTIC EXERCISES MANUAL THERAPY HOT/COLD PACK ELECTRIC STIMULATION THERAPEUTIC EXERCISES MANUAL THERAPY HOT/COLD PACK ELECTRIC STIMULATION UNA THERAPEUTIC EXERCISES MANUAL THERAPY HOT/COLD PACK ELECTRIC STIMULATION UNA THERAPEUTIC EXERCISES MANUAL THERAPY HOT/COLD PACK ELECTRIC STIMULATION UNA THERAPEUTIC EXERCISES MANUAL THERAPY HOT/COLD PACK ELECTRIC STIMULATION UNA THERAPEUTIC EXERCISES MANUAL THERAPY HOT/COLD PACK ELECTRIC STIMULATION UNA THERAPEUTIC EXERCISES MANUAL THERAPY HOT/COLD PACK ELECTRIC STIMULATION UNA THERAPEUTIC EXERCISES MANUAL THERAPY HOT/COLD PACK ELECTRIC STIMULATION UNA PT RE-EVALUATION THERAPEUTIC EXERCISES MANUAL THERAPY HOT/COLD PACK ELECTRIC STIMULATION UNA THERAPEUTIC EXERCISES MANUAL THERAPY FUNC ACTIVITY HOT/COLD PACK ELECTRIC STIMULATION UNA PT RE-EVALUATION THERAPEUTIC EXERCISES MANUAL THERAPY FUNC ACTIVITY HOT/COLD PACK ELECTRIC STIMULATION UNA THERAPEUTIC EXERCISES MANUAL THERAPY FUNC ACTIVITY HOT/COLD PACK ELECTRIC STIMULATION UNA THERAPEUTIC EXERCISES MANUAL THERAPY FUNC ACTIVITY HOT/COLD PACK ELECTRIC STIMULATION UNA THERAPEUTIC EXERCISES MANUAL THERAPY FUNC ACTIVITY HOT/COLD PACK ELECTRIC STIMULATION UNA THERAPEUTIC EXERCISES MANUAL THERAPY FUNC ACTIVITY HOT/COLD PACK ELECTRIC STIMULATION UNA THERAPEUTIC EXERCISES MANUAL THERAPY FUNC ACTIVITY HOT/COLD PACK ELECTRIC STIMULATION THERAPEUTIC EXERCISES MANUAL THERAPY HOT/COLD PACK ELECTRIC STIMULATION UNA THERAPEUTIC EXERCISES MANUAL THERAPY HOT/COLD PACK ELECTRIC STIMULATION UNA THERAPEUTIC EXERCISES MANUAL THERAPY HOT/COLD PACK ELECTRIC STIMULATION UNA THERAPEUTIC EXERCISES MANUAL THERAPY HOT/COLD PACK ELECTRIC STIMULATION PT RE-EVALUATION THERAPEUTIC EXERCISES MANUAL THERAPY HOT/COLD PACK ELECTRIC STIMULATION THERAPEUTIC EXERCISES NEUROMUSCULAR RE-ED MANUAL THERAPY FUNC ACTIVITY HOT/COLD PACK ELECTRIC STIMULATION UNA THERAPEUTIC EXERCISES NEUROMUSCULAR RE-ED MANUAL THERAPY FUNC ACTIVITY HOT/COLD PACK ELECTRIC STIMULATION UNA THERAPEUTIC EXERCISES NEUROMUSCULAR RE-ED MANUAL THERAPY FUNC ACTIVITY HOT/COLD PACK ELECTRIC STIMULATION THERAPEUTIC EXERCISES MANUAL THERAPY FUNC ACTIVITY HOT/COLD PACK ELECTRIC STIMULATION UNA THERAPEUTIC EXERCISES MANUAL THERAPY HOT/COLD PACK ELECTRIC STIMULATION UNA THERAPEUTIC EXERCISES MANUAL THERAPY HOT/COLD PACK ELECTRIC STIMULATION PT EVALUATION THERAPEUTIC EXERCISES MANUAL THERAPY HOT/COLD PACK ELECTRIC STIMULATION UNATT Advance Directives Directive Yes / No Effective Date File Name No Information Encounters Encounter Description Practice Location Reason(s) For Visit Diagnoses Date Provider Providers Copied on Encounter [address], [id number], tel:[phone] [place] No Information 6201 5 Loki Velásquez. [address] [place] [address], [address], [facility], . tel: [phone] Referring Provider: Debbie Escamilla , [address] [facility], [place], [address]. tel:[phone], [id number], tel:[phone] [place] No Information 5 Loki Velásquez. [address] [place] [address], [address], [facility], . tel:[phone] Referring Provider: Debbie Escamilla , [address] [place], [address]. tel:[phone], [id number], tel:[phone] [place] No Information 9201 5 Loki Velásquez. [address] [place] [address], [facility], . tel:[phone] Referring Provider: Debbie Escamilla , [address] [place], [address]. tel:[phone], [id number], tel:[phone] [place] No Information 7201 5 Loki Velásquez. [address] [place] [address], [address], [facility], . tel: [phone] Referring Provider: Debbie Escamilla , [address] [facility] [place], [address]. tel:[phone], [id number], tel:[phone] [place] No Information Nov-0 2-201 5 Loki Christen. [address] [place] [address], [address] [place] [address], [facility], . tel:[phone] Referring Provider: Debbie Escamilla , 2015 [facility], [place], [address]. tel:[phone], [id number], tel:[phone] [place] No Information Oct-3 0-201 5 Loki Christen. [address] [place] [address], [address] [place] [address], [facility], . tel: [phone] Referring Provider: Debbie Escamilla , [address] [place], [place], [facility]. tel:[phone], [id number], tel:[phone] [place] No Information Oct-2 5-201 5 Loki Christen. [address] [place] [address], [address], [place], [facility], . tel:[phone] Referring Provider: Debbie Escamilla , [address] [place], [address]. tel:[phone], [id number], tel:[phone] [place] No Information 2 3-201 5 Loki Christen. [address] [place] [address], [address], [facility], . tel:[phone] Referring Provider: Debbie Escamilla , 2015 [facility], [place], [address]. tel:[phone] [place] [address], [id number], tel:[phone] [place] No Information 5 Loki Christen. [address] [place] [address], [address], [facility], . tel: [phone] Referring Provider: Debbie Escamilla , [address] [place], [place], [facility]. tel:[phone] [address] [place] [address], [id number], tel:[phone] [place] No Information 5 Loki Christen. [address] [place] [address], [address], [facility], . tel: [phone] Referring Provider: Debbie Escamilla , [address] [place], [place], [facility]. tel:[phone] [place] [address], [id number], tel:[phone] [place] No Information 5 Loki Christen. [address] [place] [address], [address], [facility], . tel: [phone] Referring Provider: Debbie Escamilla , [address] [place], [place], [facility]. tel:[phone] [place] [address], [id number], tel:[phone] [place] No Information 5 Loki Christen. [address] [place] [address], [address], [facility], . tel: [phone] Referring Provider: Debbie Escamilla , [address] [place], [place], [facility]. tel:[phone], [id number], tel:[phone] [place] No Information 0 1-201 5 Loki Christen. [address] [place] [address], [address], [facility], . tel:[phone] Referring Provider: Debbie Escamilla , 2015 [facility], [place], [address]. tel:[phone] [place], [place] [address], [id number], tel:[phone] [place] No Information 9 5 Loki Christen. [address] [place] [address], [address], [facility], . tel:[phone] Referring Provider: Debbie Escamilla , [address] [place], [address]. tel:[phone] [place], [place] [address]e [address] [place] [address], [id number], tel:[phone] [place] No Information 5 Loki Christen. [address] [place] [address], [address], [facility], . tel:[phone] Referring Provider: Debbie Escamilla , [address] [place], [address]. tel:[phone] [place] [address], [id number], tel:[phone] [place] No Information 5 Loki Christen. [address] [place] [address], [facility] [address], [place], [facility], . tel:[phone] Referring Provider: Debbie Escamilla , [address] [place], [address]. tel:[phone] [address], [id number], tel:[phone] [place] No Information 5 Loki Christen. [address] [place] [address], [address], [address], [place]. tel:[phone] Referring Provider: Debbie Escamilla , 2016 [facility], [place], [address]. tel:[phone] [place], [place] [address]u[address], [id number], [place] tel:[phone] [place] No Information 5 Loki Christen. [address] [place] [address], [address], [place], [address], [place]. tel:[phone] Referring Provider: Debbie Escamilla , [address] [place], [address]. tel:[phone] [address] [place], [place] [address]u[address] [place] [address], [id number], [place] tel:[phone] [place] No Information 5 Loki Christen. [address] [place] [address], [address], [facility], [place]. tel:[phone] Referring Provider: Debbie Escamilla , [address] [place], [address]. tel:[phone] [place], [place] [address]u[address] [place] [address], [id number], [place] tel:[phone] [place] No Information 5 Loki Christen. [address] [place] [address], [address], [place], [address], [place]. tel:[phone] Referring Provider: Debbie Escamilla , [address] [place], [address]. tel:[phone] [place], [place] [address]u[address], [id number], [place] tel:[phone] [place] No Information 0-201 5 Loki Christen. [address] [place] [address], [address], [facility], . tel:[phone] Referring Provider: Debbie Escamilla , 2015 [facility], [place], [place], [facility]. tel:[phone] [place] [address], [id number], tel:[phone] [place] No Information Apr-0 7-201 5 Loki Christen. [address] [place] [address], [address], [place], [facility], . tel:[phone] Referring Provider: Debbie Escamilla , 2015 [facility], [place], [facility]. tel:[phone] [place] [address], [id number], tel:[phone] [place] No Information Apr-0 3-201 5 Loki Christen. [address] [place] [address], [address], [facility], . tel:[phone] Referring Provider: Debbie Escamilla , 2015 [facility], [place], [address]. tel:[phone] [place] [address], [id number], tel:[phone] [place] No Information Apr-0 1-201 5 Loki Velásquez. [address] [place] [address], [address], [facility], [place]. tel:[phone] Referring Provider: Debbie Escamilla , [address] [place], [address]. tel:[phone] [place] [address], [id number], tel:[phone] [place] No Information Mar-3 0-201 5 Loki Velásquez. [address] [place] [address], [address], [facility], . tel:[phone] Referring Provider: Debbie Escamilla , [address] [facility], [place], [address]. tel:[phone], [id number], tel:[phone] [place] No Information Mar-2 6-201 5 Loki Christen. [address] [place] [address], [address], [facility], . tel: [phone] Referring Provider: Debbie Escamilla , [address] [facility], [place], [address]. [phone], [id number], tel:[phone] [place] No Information Mar-2 4-201 5 Loki Christen. [address] [place] [address], [address], [facility], . tel:[phone] Referring Provider: Debbie Escamilla , [address] [facility] [address], [place], [address]. tel:[phone], [id number], tel:[phone] [place] No Information Mar-2 3-201 5 Loki Christen. [address] [place] [address], [address], [facility], . tel:[phone] Referring Provider: Debbie Escamilla , [address] [facility] [address], [place], [address]. tel:[phone], [id number], tel:[phone] [place] No Information Mar-1 9-201 5 Loki Christen. [address] [place] [address], [address], [facility], . tel:[phone] Referring Provider: Debbie Escamilla , [address] [place], [address]. tel:[phone], [id number], tel:[phone] [place] No Information 5 Loki Velásquez. [address] [place] [address], [address] [place] [address], [facility], . tel: [phone] Referring Provider: Debbie Escamilla , 2015 [facility], [place], [address]. tel:[phone], [id number], tel:[phone] [place] No Information 0 5 Loki Velásquez. [address] [place] [address], [address], [facility], . tel: [phone] Referring Provider: Debbie Escamilla , [address] [place], [address]. tel:[phone], [id number], tel:[phone] [place] No Information 5 Loki Velásquez. [address] [place] [address], [address] [place] [address], [facility], . tel: [phone] Referring Provider: Debbie Escamilla , 2015 [facility], [place], [address]. tel:[phone], [id number], tel:[phone] [place] No Information 5 Loki Velásquze. [address] [place] [address], [address], [facility], . tel: [phone] Referring Provider: Debbie Escamilla , [address] [place], [address]. tel:[phone], [id number], tel:[phone] [place] No Information 0-201 5 Muehl Maureen. [address] [place] [address], [address], [facility], . tel: [phone] Referring Provider: Debbie Escamilla , [address] [place], [facility]. tel:[phone], [id number], tel:[phone] [place] No Information 6-201 5 Muehl Maureen. [address] [place] [address], [address] [place] [address], [facility], . tel: [phone] Referring Provider: Debbie Escamilla , [address] [place], [address]. tel:[phone], [id number], tel:[phone] [place] No Information 3-201 5 Muehl Maureen. [address] [place] [address], [address] [place] [address], [facility], [place]. tel: [phone] Referring Provider: Debbie Escamilla , [address] [place], [address]. tel:[phone], [id number], [place] tel:[phone] [place] Pain in joint involving shoulder region 9 5 Muehl Maureen. [address] [place] [address], [address] [place] [address], [facility], . tel:[phone] Referring Provider: Debbie Escamilla , [address] [place], [address]. tel:[phone] Family History Family Member Type Diagnosis Age At Onset No Information Payers Payer name Insurance type Covered republican ID Authorava tejada(s) [facility] [id number] Social History Type Description Quantity Date Captured Comments Sex Female Smoking Status No Information Chief Complaint And Reason For Visit No Information Reason For Referral Reason For Referral No Information History Of Present Illness Encounter Date Complaint History Of Prese nt Illness No Information Functional Status Date Functional Assessmen t No Information Instructions Date Instruction Additional Infor mation No Information Assessments Type Assessment Date No Information Patient Care Teams Name Effective Dates (start - stop) Status Members No Information
--- OUTSIDE RECORDS SUMMARY | 2024-08-09 17:31 | XMS_ITS | Referral Summary ---
Author Organization [address] Address [address] [place] [id number] Care Team Providers Care Videotape Recording Engineer Name Role Phone Samy Ta MD Primary [...] coronary intervention Coronary artery disease invo lving atka coronary artery of atka heart without angina pectoris 11/04/2022 Adiposity 10/12/2013 Overview (09/02/2016): OBESITY NOS Atopic rhinitis 10/12/2013 Overview (09/02/2016): ALLERGIC RHINITIS NOS Type 2 diabetes mellitus 10/12/2013 Overview (09/02/2016): DMII WO CMP UNCNTRLD Benign hypertension 10/12/2013 Overview (09/02/2016): BENIGN HYPERTENSION Immunizations Immunization Administration Dates Next Due Tdap 11/02/2007 Social History Tobacco Use Types Packs/Day Years [...] on file Legal Sex Female 12:42 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 Gender Identity Not on file Sexual Orientation Not on file Last Filed Vital Signs Vital Sign Reading Time Taken Comments Blood Pressure 122/70 05/03/2024 2:54 PM WAIVER ANALYST Pulse 76 05/03/2024 2:54 PM WAIVER ANALYST Temperature 36.7 C (98 F) 04/01/2023 4:17 PM CDT Respiratory Rate 16 04/01/2023 4:17 PM CDT Oxygen Saturation 98% 05/03/2024 2:54 PM WAIVER ANALYST Inhaled Oxygen Concentration - - Weight 85.3 kg (188 lb) 05/03/2024 2:54 PM WAIVER ANALYST Height 157.5 cm (5' 2 ) 05/03/2024 2:54 PM WAIVER ANALYST Body Mass Index 34.39 05/03/2024 2:54 PM WAIVER ANALYST Plan of Treatment Not on file Procedures Procedure Name Priority Date/Time Associated Diagnosis Comments POCT LIPID PANEL Routine 05/03/2024 3:00 PM WAIVER ANALYST Coronary artery disease involving atka coronary artery of atka heart without angina pectoris Mixed diabetic hyperlipidemia associated with type 2 diabetes mellitus (HCC) from Last 3 Months or Most Recently Relevant to Health Maintenance Results * POCT lipid panel (05/03/2024 3:00 PM WAIVER ANALYST) Cholesterol, POC 254 mg/dL HDL, POC 58 mg/dL Triglycerides, POC 194 mg/dL LDL Cholesterol POC 158 mg/dL Chol/HDL Ratio, POC 2.7 Non-HDL Cholesterol, POC 196 mg/dL Cholesterol Total, POC 254 mg/dL Capillary blood 05/03/2024 3 :00 PM WAIVER ANALYST Renae Comer NP POINT OF CARE TEST ORDERA BLES Final Result from Last 3 Months or Most Recently Relevant to Health Maintenance Insurance Care Teams Videotape Recording Engineer Relationship Specialty Start Date End Date Samy Ta MD [address] [place] [address] PCP - General Family Medicine 08/22/22
[2024-08-09 17:39] VITALS: BP 143/75; PULSE 90; RESP 18; TEMP 37.2; O2SAT 100
[2024-08-09 17:57] LABS: Basophils Absolute Auto 0.1 K/mm3 (0.0-0.1); Basophils Percent Auto 0.7 % (0.2-1.2); Eosinophils Absolute Auto 0.1 K/mm3 (0-0.3); Eosinophils Percent Auto 1.3 % (0-4.4); Hemoglobin 13.9 g/dL (12.0-15.0); Immature Granulocyte Absolute 0.02 K/mm3 (0.00-0.031); Immature Granulocyte Percent A 0.3 % (0-0.5); Lymphocytes Absolute Auto 2.11 K/mm3 (0.9-3.2); Lymphocytes Percent Auto 30.8 % (18.3-44.2); Mean Corpuscular HGB Conc 33.9 g/dl (32-36); Mean Corpuscular Hemoglobin 29.6 pg (26-34); Mean Corpuscular Volume 87.4 fl (80-100); Monocytes Absolute Auto 0.6 K/mm3 (0.1-0.6); Monocytes Percent Auto 8.5 % (2.6-8.5); Neutrophils Percent Auto 58.4 % (45.5-73.1); Platelet Count Result 186 k/mm3 (150-375); Red Blood Count 4.69 M/mm3 (4.2-5.4); Red Cell Distribution Width 12.8 % (11.5-14.5); White Blood Count 6.9 K/mm3 (4.5-10.0)
[2024-08-09 18:08] LABS: Alanine Aminotransferase 26 U/L (6-35); Albumin Level 4.4 g/dL (3.5-5.1); Alkaline Phosphatase 57 U/L (38-126); Anion Gap 11 mmol/L (4-12); Aspartate Amino Transferase 21 U/L (14-36); Bilirubin,Total 0.7 mg/dL (0.2-1.3); Blood Urea Nitrogen 13 mg/dL (7-17); Calcium 9.5 mg/dL (8.4-10.2); Carbon Dioxide 25 mmol/L (22-30); Chloride 106 mmol/L (98-107); Estimated CRCL calculation 84 ml/min; Estimated Glomerular Filt Rate > 60; Glucose 173 mg/dL (65-110); Lipase 67 U/L (23-300); Potassium 4.1 mmol/L (3.4-5.0); Sodium 142 mmol/L (137-145)
[2024-08-09 18:09] LABS: Partial Thromboplastin Time 25.1 Seconds (22.3-36.8); Prothrombin Time 13.3 Seconds (11.1-14.7)
[2024-08-09 18:20] LABS: Troponin I < 0.012 ng/mL (0.000-0.034)
--- OUTSIDE RECORDS SUMMARY | 2024-08-09 19:59 | XMS_ITS | Referral Summary ---
Author Organization [address] Address [address] [place] [address] Care Team Providers Care Furnace And Wash Equipment Operator Name Role Phone Samy Ta MD Primary [...] coronary intervention Coronary artery disease invo lving [place] coronary artery of [place] heart without angina pectoris 11/04/2022 Adiposity 10/12/2013 [...] on file Legal Sex Female 12:42 AM EQUITY STRUCTURER Gender Identity Not on file Sexual Orientation Not on file Last Filed Vital Signs Vital Sign Reading Time Taken Comments Blood Pressure 122/70 05/03/2024 2:54 PM EQUITY STRUCTURER Pulse 76 05/03/2024 2:54 PM EQUITY STRUCTURER Temperature 36.7 C (98 F) 04/01/2023 4:17 PM CDT Respiratory Rate 16 04/01/2023 4:17 PM CDT Oxygen Saturation 98% 05/03/2024 2:54 PM EQUITY STRUCTURER Inhaled Oxygen Concentration - - Weight 85.3 kg (188 lb) 05/03/2024 2:54 PM EQUITY STRUCTURER Height 157.5 cm (5' 2 ) 05/03/2024 2:54 PM EQUITY STRUCTURER Body Mass Index 34.39 05/03/2024 2:54 PM EQUITY STRUCTURER Plan of Treatment Not on file Procedures Procedure Name Priority Date/Time Associated Diagnosis Comments POCT LIPID PANEL Routine 05/03/2024 3:00 PM EQUITY STRUCTURER Coronary artery disease involving [place] coronary artery of [place] heart without angina pectoris Mixed diabetic hyperlipidemia associated with type 2 diabetes mellitus (HCC) from Last 3 Months or Most Recently Relevant to Health Maintenance Results * POCT lipid panel (05/03/2024 3:00 PM EQUITY STRUCTURER) Cholesterol, POC 254 mg/dL HDL, POC 58 mg/dL Triglycerides, POC 194 mg/dL LDL Cholesterol POC 158 mg/dL Chol/HDL Ratio, POC 2.7 Non-HDL Cholesterol, POC 196 mg/dL Cholesterol Total, POC 254 mg/dL Capillary blood 05/03/2024 3 :00 PM EQUITY STRUCTURER Renae Comer NP POINT OF CARE TEST ORDERA BLES Final Result from Last 3 Months or Most Recently Relevant to Health Maintenance Insurance Care Teams Furnace And Wash Equipment Operator Relationship Specialty Start Date End Date Samy Ta MD [address] [place] [address] PCP - General Family Medicine 08/22/22
--- OUTSIDE RECORDS SUMMARY | 2024-08-09 19:59 | XMS_ITS | Continuity of Care Document ---
Author Organization [facility] Address [address] [place] [address] [place] [address] Phone Care Team Providers Care Associate Engineer Name Role Phone Samy Ta MD Unavailable Unavailable Allergies, Adverse Reactions, Alerts Substance Reaction Status Criticality No Known Allergies Active No Inform ation Medications Medication Instructions Dosage Effective Dates (start - stop) Status Comments glipizide ER 10 mg tablet, extended release 24 hr take 1 tablet by oral route every day with breakfast 10 MG - Active Trulicity 1.5 mg/0.5 mL subcutaneous pen injector inject (1.5MG) by subcutaneous route every week 1.5 MG - Active Jardiance 10 mg tablet take 1 tablet by oral route every day in the morning 10 MG - Active Crestor 40 mg tablet take 1 tablet by or al route every day 40 MG - Active Wellbutrin XL 150 mg 24 hr tablet, extended release take 1 tablet by oral route every morning 150 MG - Active OneTouch Delica Plus Lancet 33 gauge test BG BID - Active OneTouch Verio test strips use BID - Active Plavix 75 mg tablet take 1 tablet by ora l route every day 75 MG - Active isosorbide mononitrate ER 30 mg tablet,extended release 24 hr take 1 tablet by oral route every day in the morning 30 MG - Active Procedures Procedure Date OFFICE/OUTPATIENT [...] Diagnoses Date Provider Providers Copied on Encounter [facility], [address] [place], [id number], tel:[phone] [facility] No Information 5 Keyon Van [address], [place], [place], [address] , [place]. tel:[phone] OFFICE/OUTPA TIENT VISIT, [facility] [place], [facility], [address] [place], [address], [place] tel:[phone] [facility] HLP (chief complaint) DM (chief complaint) HCT (chief complaint) anxiety1 (chief complaint) Mixed hyperlipidemiaSecon roney polycythemiaType 2 diabetes mellitus without complicationsGenera lized Anxiety Disorder 5 Keyon Van [address], [place], [place], [address] , [place]. tel:[phone] [facility], [address], [address], [place] tel:[phone] [facility] No Information 4 Keyon Van [address], [place], [place], [address] , [place]. tel:[phone] OFFICE/OUTPA TIENT VISIT, [facility] [place], [address], [place], [place], [address], [place] tel:[phone] [facility] DM (chief complaint) HLP (chief complaint) HCT (chief complaint) migraine1 (chief complaint) Mixed hyperlipidemiaType 2 diabetes mellitus without complicationsSecond yoav polycythemiaCAD of nondalton coronary artery without angina pectorisMigraine w/o aura, not intractable, w/o status migrainosus 4 Keyon Pablo. [address], [place], [place], [address] , [place]. tel:[phone] OFFICE/OUTPA TIENT VISIT, [facility] [place], [address], [place], [place], [address], [place] tel:[phone] [facility] migraine1 (chief complaint) Migraine w/o aura, not intractable, w/o status migrainosus 4 Keyon Pablo. [address], [place], [place], [address] , [place]. [phone] OFFICE/OUTPA TIENT VISIT, [facility] [place], [address], [place], [place], [address], [place] tel:[phone] [facility] HLP (chief complaint) DM (chief complaint) weight gain1 (chief complaint) Mixed hyperlipidemiaType 2 diabetes mellitus without complicationsAbnorm al weight gain 4 Keyon Van [address], [place], [place], [address] , [place]. [phone] OFFICE/OUTPA TIENT VISIT, [facility] [place], [address], [place], [place], [address], [place] tel:[phone] [facility] sick (chief complaint) GERD1 (chief complaint) PneumoniaGERD w/o esophagitis 4 Keyon Pablo. [address], [place], [place], [address] , [place]. [phone] OFFICE/OUTPA TIENT VISIT, [facility] [place], [address], [place], [place], [address], [place] tel:[phone] [facility] cough1 (chief complaint) Acute bronchitisViral infection 3 Keyon Pablo. [address], [place], [place], [address] , [place]. tel:[phone] OFFICE/OUTPA TIENT VISIT, [facility] [place], [address], [place], [place], [address], [place] tel:[phone] [facility] pneumonia1 (chief complaint) Pneumonia 3 Keyon Samy. [address], [place], [place], [address] , [place]. tel:[phone] OFFICE/OUTPA TIENT VISIT, [facility] [place], [address], [place], [place], [address], [place] tel:[phone] [facility] sleep apnea1 (chief complaint) DM (chief complaint) HLP (chief complaint) LFT (chief complaint) iron deficiency 1 (chief complaint) Iron deficiencyType 2 diabetes mellitus without complicationsMixed hyperlipidemiaLiver diseaseObstructive Sleep Apnea Hypopnea 3 Keyon Pablo. [address], [place], [place], [address] , [place]. tel:[phone] OFFICE/OUTPA TIENT VISIT, [facility] [place], [address], [place], [place], [address], [place] tel:[phone] [facility] DM (chief complaint) HLP (chief complaint) weight gain1 (chief complaint) heel pain1 (chief complaint) Mixed hyperlipidemiaIron deficiencyType 2 diabetes mellitus without complicationsAbnorm al weight gainFatigueCAD of nondalton coronary artery without angina pectorisPain in right foot 3 Keyon Pablo. [address], [place], [place], [address] , [place]. tel:[phone] OFFICE/OUTPA TIENT VISIT, [facility] [place], [address], [place], [place], [address], [place] tel:[phone] [facility] HLP (chief complaint) DM (chief complaint) ferritin1 (chief complaint) fatigue1 (chief complaint) FatigueMixed hyperlipidemiaIron deficiencyType 2 diabetes mellitus without complications 3 Keyon Pablo. [address], [place], [place], [address] , [place]. tel:[phone] OFFICE/OUTPA TIENT VISIT, [facility] [place], [address], [place], [place], [address], [place] tel:[phone] [facility] CAD (chief complaint) HLP (chief complaint) DM (chief complaint) Mixed hyperlipidemiaCAD of nondalton coronary artery without angina pectorisType 2 diabetes mellitus without complications 3 Keyon Pablo. [address], [place], [place], [address] , [place]. tel:[phone] OFFICE/OUTPA TIENT VISIT, [facility] [place], [address], [place], [place], [address], [place] tel:[phone] [facility] nausea1 (chief complaint) hematuria1 (chief complaint) Type 2 diabetes mellitus without complicationsNausea w/ vomitingBenign essential microscopic hematuria 3 Keyon Pablo. [address], [place], [place], [address] , [place]. tel:[phone] OFFICE/OUTPA TIENT VISIT, [facility] [place], [address], [place], [place], [address], [place] tel:[phone] [facility] DM (chief complaint) fatigue1 (chief complaint) weight gain1 (chief complaint) Type 2 diabetes mellitus without complicationsAbnorm al weight gainFatigueMixed hyperlipidemia 3 Keyon Pablo. [address], [place], [place], [address] , [place]. tel:[phone] OFFICE/OUTPA TIENT VISIT, [facility] [place], [address], [place], [place], [address], [place] tel:[phone] [facility] CAD (chief complaint) DM (chief complaint) GERD1 (chief complaint) GERD w/o esophagitisType 2 diabetes mellitus without complicationsCAD of nondalton coronary artery without angina pectorisMixed hyperlipidemia 3 Keyon Pablo. [address], [place], [place], [address] , [place]. tel:[phone] PREV VISIT, NEW, AGE 40-64 [facility], [address], [place], [place], [address], [place] tel:[phone] [facility] Medicine physical (chief complaint) Encounter for general adult medical examination without abnormal findings 3 Keyon Pablo. [address], [place], [place], [address] , [place]. [phone] Family History Family Member Type Diagnosis Age At Onset Sister Problem Diabetes mellitus Mother Problem Diabetes mellitus Father Problem Diabetes mellitus Father Problem Stroke 68 Payers Payer name Insurance type Covered democrat ID Authoriza tion(s) No Information Social History Type Description Quantity Date Captured Comments Sex Female Smoking Status No Information Chief Complaint And Reason For Visit No Information Plan Of Treatment Date Type Action Status Referral Ordered: CHEST X-RAY PA/LAT TWO-VIEWS ordered Referral Ordered: Tamika Duran -Podiatric Medicine & Surgery Service Providers : Negative Turner (related to Pain in right foot) ordered Referral Referred To: Tamika Duran [facility]
[place], [place], [id number] Ordered: Referrals: Podiatric Medicine & Surgery Service Providers : Negative Turner. Tamika Duran. Evaluate and treat ordered Referral Ordered: SLEEP STUDY, ATTENDED ordered Referral Ordered: Endocrinology, Diabetes and Metabolism (related to Type 2 diabetes mellitus without complications) ordered Referral Ordered: Referrals: Endocrinology, Diabetes and Metabolism. Evaluate and treat ordered Referral Ordered: Ophthalmology (related to Encounter for general adult medical examination without abnormal findings) ordered Referral Ordered: Referrals: Ophthalmology. 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 Pt went to modeling director last Monday and she was cleared for [...] physical Pt recently had non ST elevation GA and she saw cardiology and she had [...]
--- OUTSIDE RECORDS SUMMARY | 2024-08-09 20:00 | XMS_ITS | Continuity of Care Document ---
Author Organization [employer] [facility] Address [address] [place] [address] [place] [id number] Phone Care Team Providers Care Retail Presentation Specialist Name Role Phone Loki VIKKI Christen Unavailable [...] Diagnoses Date Provider Providers Copied on Encounter [address], [id number], tel:[phone] [place] No Information 6201 5 Loki Velásquez. [address] [place] [address], [address], [facility], . tel: [phone] Referring Provider: Debbie Escamilla , [facility], [place], [address]. tel:[phone], [id number], tel:[phone] [place] No Information 5 Loki Velásquez. [address] [place] [address], [address], [facility], . tel:[phone] Referring Provider: Debbie Escamilla , [address] [facility] [place], [address]. tel:[phone], [id number], tel:[phone] [place] No Information 9201 5 Loki Velásquez. [address] [place] [address], [facility], . tel:[phone] Referring Provider: Debbie Escamilla , [address] [facility] [place], [address]. tel:[phone], [id number], tel:[phone] [place] No Information 7201 5 Loki Velásquez. [address] [place] [address], [address], [facility], . tel: [phone] Referring Provider: Debbie Escamilla , [facility] [address]. tel:[phone], [id number], tel:[phone] [place] No Information Nov-0 2-201 5 Loki Christen. [address] [place] [address], [address] [place] [address], [facility], . tel:[phone] Referring Provider: Debbie Escamilla , 2015 [facility], [place], [address]. tel:[phone], [id number], tel:[phone] [place] No Information Oct-3 0-201 5 Loki Christen. [address] [place] [address], [address] [place] [address], [facility], . tel: [phone] Referring Provider: Debbie Escamilla , [address] [place], [place], [facility]. tel:[phone], [id number], tel:[phone] [place] No Information Oct-2 5-201 5 Loki Christen. [address] [place] [address], [address], [place], [facility], . tel:[phone] Referring Provider: Debbie Escamilla , [address] [place], [address]. tel:[phone], [id number], tel:[phone] [place] No Information 2 3-201 5 Loki Christen. [address] [place] [address], [address], [place], [facility], . tel:[phone] Referring Provider: Debbie Escamilla , 2015 [facility], [place], [address]. tel:[phone] [place] [address], [id number], tel:[phone] [place] No Information 5 Loki Christen. [address] [place] [address], [address], [facility], . tel: [phone] Referring Provider: Debbie Escamilla , [address] [place], [place], [facility]. tel:[phone] [place] [address], [id number], tel:[phone] [place] No Information 5 Loki Christen. [address] [place] [address], [address], [facility], . tel: [phone] Referring Provider: Debbie Escamilla , [address] [place], [facility]. tel:[phone] [place] [address], [id number], tel:[phone] [place] No Information 5 Loki Christen. [address] [place] [address], [address], [facility], . tel: [phone] Referring Provider: Debbie Escamilla , [address] [place], [facility]. tel:[phone] [place] [address], [id number], tel:[phone] [place] No Information 5 Loki Christen. [address] [place] [address], [address], [facility], . tel: [phone] Referring Provider: Debbie Escamilla , [address] [place], [facility]. tel:[phone], [id number], tel:[phone] [place] No Information 0 1-201 5 Loki Christen. [address] [place] [address], [address], [facility], . tel:[phone] Referring Provider: Debbie Escamilla , 2015 [facility], [place], [address]. tel:[phone] [place], [place] [address]u[address], [place], [id number], tel:[phone] [place] No Information 9 5 Loki Christen. [address] [place] [address], [address], [place], [facility], . tel:[phone] Referring Provider: Debbie Escamilla , [address] [place], [address]. tel:[phone] [place], [place] [address]e [address] [place] [address], [id number], tel:[phone] [place] No Information 5 Loki Christen. [address] [place] [address], [address], [place], [facility], . tel:[phone] Referring Provider: Debbie Escamilla , [address] [place], [address]. tel:[phone] [place] [address], [id number], tel:[phone] [place] No Information 5 Loki Christen. [address] [place] [address], [facility] [address], [place], [facility], . tel:[phone] Referring Provider: Debbie Escamilla , [address] [place], [address]. tel:[phone] [address], [place], [id number], tel:[phone] [place] No Information 5 Loki Christen. [address] [place] [address], [address], [place], [address], [place]. tel:[phone] Referring Provider: Debbie Escamilla , 2016 [facility], [place], [address]. tel:[phone] [place], [place] [address]u[address], [place], [id number], [place] tel:[phone] [place] No Information 5 Loki Christen. [address] [place] [address], [address], [place], [address], [place]. tel:[phone] Referring Provider: Debbie Escamilla , [address] [place], [address]. tel:[phone] [address] [place], [place] [address]u[address] [place] [address], [id number], [place] tel:[phone] [place] No Information 5 Loki Christen. [address] [place] [address], [address], [place], [facility], [place]. tel:[phone] Referring Provider: Debbie Escamilla , [address] [place], [address]. tel:[phone] [place], [place] [address]u[address] [place] [address], [id number], [place] tel:[phone] [place] No Information 5 Loki Christen. [address] [place] [address], [address], [place], [address], [place]. tel:[phone] Referring Provider: Debbie Escamilla , [address] [place], [address]. tel:[phone] [place], [place] [address]u[address], [place], [id number], [place] tel:[phone] [place] No Information 0-201 5 Loki Christen. [address] [place] [address], [address], [place], [facility], . tel:[phone] Referring Provider: Debbie Escamilla , 2015 [facility], [place], [place], [facility]. tel:[phone] [place] [address], [id number], tel:[phone] [place] No Information Apr-0 7-201 5 Loki Christen. [address] [place] [address], [address], [place], [facility], . tel:[phone] Referring Provider: Debbie Escamilla , 2015 [facility], [place], [place], [facility]. tel:[phone] [place] [address], [id number], tel:[phone] [place] No Information Apr-0 3-201 5 Loki Christen. [address] [place] [address], [address], [place], [facility], . tel:[phone] Referring Provider: Debbie Escamilla , 2015 [facility], [place], [address]. tel:[phone] [place] [address], [id number], tel:[phone] [place] No Information Apr-0 1-201 5 Loki Velásquez. [address] [place] [address], [address], [place], [facility], [place]. tel:[phone] Referring Provider: Debbie Escamilla , [address] [place], [address]. tel:[phone] [place] [address], [id number], tel:[phone] [place] No Information Mar-3 0-201 5 Loki Velásquez. [address] [place] [address], [address], [place], [facility], . tel:[phone] Referring Provider: Debbie Escamilla , [address] [facility], [place], [address]. tel:[phone], [id number], tel:[phone] [place] No Information Mar-2 6-201 5 Loki Christen. [address] [place] [address], [address], [facility], . tel: [phone] Referring Provider: Debbie Escamilla , [address] [facility], [place], [address]. [phone], [id number], tel:[phone] [place] No Information Mar-2 4-201 5 Loki Christen. [address] [place] [address], [address], [place], [facility], . tel:[phone] Referring Provider: Debbie Escamilla , [address] [facility] [address], [place], [address]. tel:[phone], [id number], tel:[phone] [place] No Information Mar-2 3-201 5 Loki Christen. [address] [place] [address], [address], [facility], . tel:[phone] Referring Provider: Debbie Escamilla , [address] [facility] [address], [place], [address]. tel:[phone], [id number], tel:[phone] [place] No Information Mar-1 9-201 5 Loki Christen. [address] [place] [address], [address], [place], [facility], . tel:[phone] Referring Provider: Debbie Escamilla , [address] [place], [address]. tel:[phone], [id number], tel:[phone] [place] No Information 5 Loki Velásquez. [address] [place] [address], [address] [place] [address], [facility], . tel: [phone] Referring Provider: Debbie Escamilla , 2015 [facility], [place], [address]. tel:[phone], [id number], tel:[phone] [place] No Information 0 5 Loki Velásquez. [address] [place] [address], [address], [facility], . tel: [phone] Referring Provider: Debbie Escamilla , [address] [place], [address]. tel:[phone], [id number], tel:[phone] [place] No Information 5 Loki Velásquez. [address] [place] [address], [address] [place] [address], [facility], . tel: [phone] Referring Provider: Debbie Escamilla , 2015 [facility], [place], [address]. tel:[phone], [id number], tel:[phone] [place] No Information 5 Loki Velásquez. [address] [place] [address], [address], [place], [facility], . tel: [phone] Referring Provider: Debbie Escamilla , [address] [place], [address]. tel:[phone], [id number], tel:[phone] [place] No Information 0-201 5 Muehl Maureen. [address] [place] [address], [address], [facility], . tel: [phone] Referring Provider: Debbie Escamilla , [address] [place], [place], [facility]. tel:[phone], [id number], tel:[phone] [place] No Information 6-201 5 Muehl Maureen. [address] [place] [address], [address] [place] [address], [facility], . tel: [phone] Referring Provider: Debbie Escamilla , [address] [place], [address]. tel:[phone], [id number], tel:[phone] [place] No Information 3-201 5 Muehl Maureen. [address] [place] [address], [address] [place] [address], [facility], [place]. tel: [phone] Referring Provider: Debbie Escamilla , [address] [place], [address]. tel:[phone], [id number], [place] tel:[phone] [place] Pain in joint involving shoulder region 9 5 Muehl Maureen. [address] [place] [address], [address] [place] [address], [facility], . tel:[phone] Referring Provider: Debbie Escamilla , [address] [place], [address]. tel:[phone] Family History Family Member Type Diagnosis Age At Onset No Information Payers Payer name Insurance type Covered alliance party ID Authorava tejada(s) [facility] [id number] Social History Type Description Quantity Date Captured [...]
--- OUTSIDE RECORDS SUMMARY | 2024-08-09 20:00 | XMS_ITS | Clinical Summary ---
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 Gender Identity Not on file Sexual Orientation Not on file Obstetrics History Last Filed Vital Signs Vital Sign Reading Time Taken Comments Blood Pressure 122/70 05/03/2024 2:54 PM FOOD PREPARATION SUPERVISOR Pulse 76 05/03/2024 2:54 PM FOOD PREPARATION SUPERVISOR Temperature 36.7 C (98 F) 04/01/2023 4:17 PM CDT Respiratory Rate 16 04/01/2023 4:17 PM CDT Oxygen Saturation 98% 05/03/2024 2:54 PM FOOD PREPARATION SUPERVISOR Inhaled Oxygen Concentration - - Weight 85.3 kg (188 lb) 05/03/2024 2:54 PM FOOD PREPARATION SUPERVISOR Height 157.5 cm (5' 2 ) 05/03/2024 2:54 PM FOOD PREPARATION SUPERVISOR Body Mass Index 34.39 05/03/2024 2:54 PM FOOD PREPARATION SUPERVISOR Plan of Treatment Health Maintenance Due Date [...] POCT LIPID PANEL Routine 05/03/2024 3:00 PM FOOD PREPARATION SUPERVISOR Coronary artery disease involving ekwok coronary artery of ekw[place] heart without angina pectoris Mixed diabetic hyperlipidemia associated with type 2 diabetes mellitus (HCC) from Last 3 Months or Most Recently Relevant to Health Maintenance Results * POCT lipid panel (05/03/2024 3:00 PM FOOD PREPARATION SUPERVISOR) Cholesterol, POC 254 mg/dL HDL, POC 58 mg/dL Triglycerides, POC 194 mg/dL LDL Cholesterol POC 158 mg/dL Chol/HDL Ratio, POC 2.7 Non-HDL Cholesterol, POC 196 mg/dL Cholesterol Total, POC 254 mg/dL Capillary blood 05/03/2024 3 :00 PM FOOD PREPARATION SUPERVISOR Renae Comer NP POINT OF CARE TEST ORDERA BLES Final Result from Last 3 Months or Most Recently Relevant to Health Maintenance Insurance [facility] Care Teams Machine Cloth Measurer Relationship Specialty Start Date End Date Samy Ta MD [address] [place] [address] PCP - General Family Medicine 08/22/22
--- NOTE | 2024-08-10 00:43 | ECG_ITS ---
Test Date: 2024-08-10 00:46:47 Measurements Intervals [place] Rate: 76 P: 29 ID: [id number] QRS: -32 QRSD: 99 T: 23 QT: 385 QTc: 434 Interpretive Statements SINUS ARRHYTHMIA LEFT AXIS DEVIATION PATTERN CONSISTENT WITH PULMONARY DISEASE Electronically Signed On 08-11-2024 13:54:44 CDT by Milo Harrison D.O
[2024-08-10 01:32] LABS: Troponin I < 0.012 ng/mL (0.000-0.034)
--- NOTE | 2024-08-10 02:47 | PC.NURSE ---
pt ambulatory to triage desk stating she was going to be leaving d/t wait times. pt educated on importance of returning to healthcare facility if sx persist. pt ambulatory out of dept w steady gait.
== END 2024-08-10 03:03 | disposition left against medical advice (07) ==
PROVIDERS: Emergency Provider Student in an Organized Health Care Education/Training Program; PCP Emergency Medicine
DX: R07.9 Chest pain, unspecified (principal)
CPT/HCPCS: 36415; 71046; 80053; 83690; 84484; 85025; 85610; 85730; 93005; 99199